=== PATIENT | female | born 1965 | race Caucasian/White ===

== ENCOUNTER 2023-03-08 09:49 | Inpatient (IN) ==
[2023-03-08] MEDS ORDERED: SODIUM CHLORIDE 0.9% 1,000 ML IV SCH (10:00)
--- NOTE | 2023-03-08 10:13 | Emergency Department Note ---
Impression & Plan Weakness, Hypotension, Anemia, Hypomagnesemia, Hypokalemia, Acute dehydration, COVID-19 ED Provider Note NAME: XENA ALLAN AGE: 57 SEX: F : 1965 ARRIVES VIA: Walk-In INFORMANT: [Patient] ED PROVIDER(S): [Tony Reeder MD] CHIEF COMPLAINT: Weakness, dizziness HISTORY OF PRESENT ILLNESS: The patient is a 57-year-old female who is receiving chemo and radiation therapy. She last had chemo 2 weeks ago. She is scheduled every 3 weeks. She had radiation today, she receives this Monday through Monday. At the radiation center, she complained of some dizziness and her blood pressure was 80/52. She was sent to the ER for evaluation, there is concern that she may be dehydrated. The patient has noticed some lightheadedness for the last week or so. Things seem to be worsening some. She has had some night sweats and a slightly productive cough. No fever, no vomiting but she has felt nauseated. No urinary complaints, no diarrhea. PMHx/PSHx/Social Hx: See Below PHYSICAL EXAM: GENERAL: Patient is in no acute distress. HEENT: No acute trauma, normocephalic atraumatic, mucous membranes moist, no nasal congestion. No throat erythema or exudate. NECK: No stridor, no adenopathy, no meningismus, trachea is midline. LUNGS: Clear to auscultation bilaterally, no wheeze, no rhonchi, breath sounds equal. HEART: Mildly tachycardic, regular rhythm, no murmurs. ABDOMEN: Soft, nontender, no peritonitis. EXTREMITIES: No cyanosis, full range of motion of all the joints without pain or difficulty. NEUROLOGIC: Oriented x 3, no acute motor or sensory deficits, no focal weakness. SKIN: No jaundice, no diaphoresis. Rectal: Brown stool, heme-negative. DIFFERENTIAL DIAGNOSIS: Dehydration, anemia, electrolyte imbalance, dysrhythmia, PR, UTI, viral illness, medication reaction, among others. EMERGENCY DEPARTMENT PROCEDURES: MEDICAL DECISION MAKING: The patient has a pancytopenia. This is likely from her chemotherapy. Of note, hemoglobin was quite low at 6. I did perform a rectal exam, stool was brown and heme negative. The patient's potassium and magnesium were both low. Creatinine was elevated consistent with some acute kidney injury/dehydration. ECG showed a sinus tachycardia, no obvious ischemia. Cardiac enzyme testing x 1 is slightly elevated. This troponin elevation could be secondary to cardiac injury or potentially just mismatch from her tachycardia and anemia. The patient appeared to be in a euthyroid state. No concerning liver enzyme elevation. Urinalysis did not show findings of infection. COVID test returned positive. Influenza and RSV test were negative. Chest x-ray does not show pneumonia or CHF. On exam, the patient was tachycardic but not in any distress. The patient received 1 L of IV saline. She was given IV magnesium, 2 g. She received oral potassium. The patient was ordered for 1 unit of packed red blood cells to be transfused. She did sign consent for the transfusion. I did speak with the patient about her findings, she understands that she will require hospitalization. She will need hydration, electrolyte replacement, packed red blood cell transfusions. I do think the findings on her workup explain her fatigue, weakness, hypotension and tachycardia. Prior/Outside records/notes reviewed: Radiation oncology note from 01/06/23 discussing her malignancy and the plan moving forward. ECG per my interpretation: Indication was weakness and dizziness. The ECG shows a sinus tachycardia with a rate of 107. There is some LVH present. There is no ST elevation, no PVCs. The QTc is 469. Continuous Cardiac Monitoring per my interpretation: An order was placed for continuous cardiac monitoring. The monitor shows a rate of 122 with sinus tachycardia. Imaging/x-ray results per my interpretation: Chest x-ray does not show mediastinal widening, pneumonia or pneumothorax. Chronic Medical/Social conditions affecting care: Small cell lung cancer. Currently undergoing chemo and radiation therapy Care/Management discussed with: Case management, the on-call hospitalist. Level of care consideration(s): After review of the information above and other included data: --I believe the patient requires escalation of care to admission Critical Care Note: I have personally spent 56 minutes of critical care time in the direct management of this patient. This includes bedside care, interpretation of diagnostic studies, and testing, discussion with consultants, patient, and family members, and other required patient management activities. This 56 minutes is in excess of all separately billable procedures. DISPOSITION: Admission Past Med/Surg History Medical History Diabetes Hyperlipidemia Hypertension Surgical History (Updated 01/03/23 @ 08:30 by Selam Rivera RN) History of cholecystectomy History of bronchoscopy (12/21/22) Family History (Updated 01/03/23 @ 08:31 by Selam Rivera RN) Father No problems noted. Mother , Passed age 27 Cancer unsure Brother No problems noted. Daughter No problems noted. Social History Smoking Status: Former smoker Tobacco Type: Cigarettes Age Started Using Tobacco: 13; Age Quit Using Tobacco: 57; packs per day: 1; Second Hand Exposure: Yes; Do You Dip or Chew Tobacco: No; Hx Alcohol Use: No Hx Substance Use: No Preferred Language: Azerbaijani Communication Ability: Effective Visual Impairment: Limited Hearing Ability: Normal Forming Operator Required: No Beliefs That Will Affect Care: None marital status: Current Living Situation: Spouse How many Children do You have: 1 Feels Safe at Home: Yes Childhood Exposure to Second-Hand Smoke: Yes Diet: regular caffeine: Yes during the past year weight has: remained stable Dental Care, Regularly: Yes Assistive Devices: Glasses Allergies Allergies Allergy/AdvReac Type Severity Reaction Status Date / Time cromolyn Allergy Severe facial Verified 03/08/23 12:29 edema latex Allergy Unknown . Verified 03/06/23 08:53 Home Meds Home Medications Medication Instructions Recorded Confirmed albuterol sulfate 90 mcg/actuation 2 puff inhalation Q4H PRN 01/03/23 03/08/23 aerosol inhaler (Proventil HFA) sob/wheezing aspirin-caffeine 400 mg-32 mg 1 tab PO Q6H PRN Other 01/03/23 03/08/23 tablet (Anacin) benzonatate 100 mg capsule 100 mg PO TID PRN Cough 01/03/23 03/08/23 citalopram 20 mg tablet (Celexa) 20 mg PO DAILY 01/03/23 03/08/23 conjugated estrogens 0.625 mg/gram 0.625 mg vaginal DAILY 01/03/23 03/08/23 vaginal cream (Premarin) fluticasone propionate 50 2 spray intranasal DAILY PRN Other 01/03/23 03/08/23 mcg/actuation nasal spray,suspension glyburide 5 mg-metformin 500 mg 1 tab PO DAILY 01/03/23 03/08/23 tablet hydrochlorothiazide 25 mg tablet 25 mg PO DAILY 01/03/23 03/08/23 lisinopril 40 mg tablet 40 mg PO DAILY 01/03/23 03/08/23 ondansetron HCl 8 mg tablet 8 mg PO Q8H PRN n/v 01/03/23 03/08/23 prochlorperazine maleate 10 mg 10 mg PO Q6H PRN n/v 01/03/23 03/08/23 tablet Ibuprofen (Motrin) 600 mg PO Q6HR PRN Pain #0 tabs 02/05/23 03/08/23 omeprazole 20 mg capsule,delayed 20 mg PO QAM 03/08/23 03/08/23 release Previous Rx's Medication Instructions Recorded Magic Mouthwash 300 mL mouthwash 10 ml mucous membrane ACHS PRN 03/06/23 dysphagia #300 mL Results & Data (ED) Vital Signs Vital Signs - 24 hr 03/08/23 09:51 03/08/23 10:31 03/08/23 10:33 Temperature 36.0 C L Temperature Source Temporal Artery Scan Pulse Rate 123 H Pulse Rate from SpO2 Sensor Pulse Rhythm Regular Pulse Strength Normal Respiratory Rate 20 Respiratory Effort / Characteristics Non-Labored Spontaneous Respiratory Depth Normal Respiratory Pattern Regular Blood Pressure 102/56 L Blood Pressure Mean 71 Blood Pressure Position Sitting Pulse Oximetry 100 Oxygen Delivery Method Room Air Room Air Room Air Oxygen Flow Rate Sepsis Recent Fever Within 48 Hours No Sepsis New/Unexplained Change in Mental Status No Sepsis Action Taken by Nursing No Action Required 03/08/23 11:00 03/08/23 11:02 03/08/23 11:30 Temperature Temperature Source Pulse Rate 107 H 109 H 110 H Pulse Rate from SpO2 Sensor 108 H 107 H Pulse Rhythm Pulse Strength Respiratory Rate 25 H 22 Respiratory Effort / Characteristics Respiratory Depth Respiratory Pattern Blood Pressure 95/78 L 108/64 Blood Pressure Mean 83 78 Blood Pressure Position Pulse Oximetry 97 99 Oxygen Delivery Method Oxygen Flow Rate Sepsis Recent Fever Within 48 Hours Sepsis New/Unexplained Change in Mental Status Sepsis Action Taken by Nursing 03/08/23 12:00 03/08/23 12:30 03/08/23 13:00 Temperature Temperature Source Pulse Rate 101 H 104 H 99 H Pulse Rate from SpO2 Sensor 101 H 104 H 99 H Pulse Rhythm Pulse Strength Respiratory Rate 15 22 24 Respiratory Effort / Characteristics Respiratory Depth Respiratory Pattern Blood Pressure 115/76 91/70 L 121/78 Blood Pressure Mean 89 77 92 Blood Pressure Position Pulse Oximetry 98 98 93 Oxygen Delivery Method Room Air Room Air Oxygen Flow Rate Sepsis Recent Fever Within 48 Hours Sepsis New/Unexplained Change in Mental Status Sepsis Action Taken by Nursing 03/08/23 14:40 03/08/23 15:00 03/08/23 15:00 Temperature 36.9 C 36.7 C Temperature Source Oral Oral Pulse Rate 109 H 108 H Pulse Rate from SpO2 Sensor Pulse Rhythm Regular Pulse Strength Respiratory Rate 16 23 24 Respiratory Effort / Characteristics Respiratory Depth Respiratory Pattern Blood Pressure 130/69 115/72 115/72 Blood Pressure Mean 89 86 86 Blood Pressure Position Pulse Oximetry 96 95 95 Oxygen Delivery Method Oxygen Flow Rate Sepsis Recent Fever Within 48 Hours Sepsis New/Unexplained Change in Mental Status Sepsis Action Taken by Nursing 03/08/23 15:02 03/08/23 15:15 Temperature 37.2 C Temperature Source Oral Pulse Rate 107 H 106 H Pulse Rate from SpO2 Sensor Pulse Rhythm Pulse Strength Respiratory Rate 24 Respiratory Effort / Characteristics Respiratory Depth Respiratory Pattern Blood Pressure 126/74 Blood Pressure Mean 91 Blood Pressure Position Pulse Oximetry 94 Oxygen Delivery Method Oxygen Flow Rate 0 Sepsis Recent Fever Within 48 Hours Sepsis New/Unexplained Change in Mental Status Sepsis Action Taken by Care Home Medications Current Medication List: was personally reviewed by me Laboratory Data Attestation: I reviewed the patient's lab results. 03/08/23 10:21 03/08/23 10:21 Lab Results 03/08/23 03/08/23 03/08/23 Range/Units 10:18 10:21 10:29 WBC 1.23 L (4.8-10.8) K/ul RBC 2.03 L (4.20-5.40) M/uL Hgb 6.0 L* (12.0-16.0) g/dl Hct 16.6 L* (37.0-47.0) % MCV 81.8 (80.0-100.0) fL MCH 29.6 (25.0-34.0) pg MCHC 36.1 H (32.0-36.0) g/dL RDW Std Deviation 41.1 (36.4-46.3) fL RDW Coeff of Luiz 13.9 (11.5-14.5) % Plt Count 50 L (130-400) K/uL Immature Gran % (Auto) 1.6 % Neut % (Auto) 50.5 % Lymph % (Auto) 34.1 % [place] % (Auto) 13.0 % Eos % (Auto) 0.8 % Baso % (Auto) 0.0 % Neut # (Auto) 0.62 L* (1.40-6.50) K/uL Lymph # (Auto) 0.42 L (1.20-3.40) K/uL [place] # (Auto) 0.16 (0.11-0.59) K/uL Eos # (Auto) 0.01 (0.00-0.50) K/uL Baso # (Auto) 0.00 (0.00-0.20) K/uL Immature Gran # (Auto) 0.02 (0.01-0.20) K/uL Platelet Estimate Decreased L (Normal) Polychromasia 1+ Sodium 135 L (136-145) mmol/L Potassium 2.9 L (3.5-5.1) mmol/L Chloride 95 L (98-107) mmol/L Carbon Dioxide 31 (21-32) mmol/L Anion Gap 9 (3-11) BUN 22 (6-23) mg/dl Creatinine 1.59 H (0.6-1.2) mg/dl Est Cr Clr Drug Dosing 35.7 ml/min Est GFR ( Amer) 40.8 ml/min Est GFR (Non-Af Amer) 35.2 ml/min BUN/Creatinine Ratio 13.8 (10-20) Glucose 280 H (70-99(Fasting)) mg/dl POC Glucose (70-99) mg/dl Lactate (0.4-2.0) mmol/L Calcium 9.2 (8.6-10.3) mg/dl Magnesium 1.4 L (1.7-2.4) mg/dl Total Bilirubin 0.5 (0.2-1.0) mg/dl AST 10 L (13-39) U/L ALT 9 (7-52) U/L Alkaline Phosphatase 74 (34-104) U/L Troponin I High Sens 33.7 H (0-14) pg/ml Total Protein 6.9 (6.0-8.3) gm/dl Albumin 3.8 (3.4-5.0) gm/dl Globulin 3.1 (2.5-4.0) gm/dl Albumin/Globulin Ratio 1.2 (0.9-2) TSH 1.102 (0.300-4.500) uIu/ml Urine Color Yellow Urine Appearance Cloudy A (Clear) Urine pH 5.5 (4.5-7.5) Ur Specific [place] 1.020 (1.000-1.030) Urine Protein Trace H (Negative) Urine Glucose (UA) 3+ H (Negative) Urine Ketones Negative (Negative) Urine Blood Negative (Negative) Urine Nitrite Negative (Negative) Urine Bilirubin Negative (Negative) Urine Urobilinogen Negative (Negative) Ur Leukocyte Esterase Negative (Negative) Urine WBC (Auto) 1-5 (0-5) /hpf Urine RBC (Auto) 0-4 (0-4) /hpf U Hyaline Cast (Auto) 5-10 H (0-5) /lpf U Epithel Cells (Auto) >30 H (0-5) /lpf Urine Bacteria (Auto) 1+ H (Negative) SARS-CoV-2 (PCR) POSITIVE A* (Negative) Influenza Type A (PCR) Negative (Neg) Influenza Type B (PCR) Negative (Neg) RSV (RT-PCR) Negative (Neg) Blood Type Blood Type Recheck Antibody Screen Crossmatch 03/08/23 03/08/23 03/08/23 Range/Units 10:50 11:16 12:08 WBC (4.8-10.8) K/ul RBC (4.20-5.40) M/uL Hgb (12.0-16.0) g/dl Hct (37.0-47.0) % MCV (80.0-100.0) fL MCH (25.0-34.0) pg MCHC (32.0-36.0) g/dL RDW Std Deviation (36.4-46.3) fL RDW Coeff of Luiz (11.5-14.5) % Plt Count (130-400) K/uL Immature Gran % (Auto) % Neut % (Auto) % Lymph % (Auto) % [place] % (Auto) % Eos % (Auto) % Baso % (Auto) % Neut # (Auto) (1.40-6.50) K/uL Lymph # (Auto) (1.20-3.40) K/uL [place] # (Auto) (0.11-0.59) K/uL Eos # (Auto) (0.00-0.50) K/uL Baso # (Auto) (0.00-0.20) K/uL Immature Gran # (Auto) (0.01-0.20) K/uL Platelet Estimate (Normal) Polychromasia Sodium (136-145) mmol/L Potassium (3.5-5.1) mmol/L Chloride (98-107) mmol/L Carbon Dioxide (21-32) mmol/L Anion Gap (3-11) BUN (6-23) mg/dl Creatinine (0.6-1.2) mg/dl Est Cr Clr Drug Dosing ml/min Est GFR ( Amer) ml/min Est GFR (Non-Af Amer) ml/min BUN/Creatinine Ratio (10-20) Glucose (70-99(Fasting)) mg/dl POC Glucose (70-99) mg/dl Lactate 2.3 H* (0.4-2.0) mmol/L Calcium (8.6-10.3) mg/dl Magnesium (1.7-2.4) mg/dl Total Bilirubin (0.2-1.0) mg/dl AST (13-39) U/L ALT (7-52) U/L Alkaline Phosphatase (34-104) U/L Troponin I High Sens (0-14) pg/ml Total Protein (6.0-8.3) gm/dl Albumin (3.4-5.0) gm/dl Globulin (2.5-4.0) gm/dl Albumin/Globulin Ratio (0.9-2) TSH (0.300-4.500) uIu/ml Urine Color Urine Appearance (Clear) Urine pH (4.5-7.5) Ur Specific [place] (1.000-1.030) Urine Protein (Negative) Urine Glucose (UA) (Negative) Urine Ketones (Negative) Urine Blood (Negative) Urine Nitrite (Negative) Urine Bilirubin (Negative) Urine Urobilinogen (Negative) Ur Leukocyte Esterase (Negative) Urine WBC (Auto) (0-5) /hpf Urine RBC (Auto) (0-4) /hpf U Hyaline Cast (Auto) (0-5) /lpf U Epithel Cells (Auto) (0-5) /lpf Urine Bacteria (Auto) (Negative) SARS-CoV-2 (PCR) (Negative) Influenza Type A (PCR) (Neg) Influenza Type B (PCR) (Neg) RSV (RT-PCR) (Neg) Blood Type A Positive Blood Type Recheck A Positive Antibody Screen NEGATIVE Crossmatch See Detail 03/08/23 03/08/23 03/08/23 Range/Units 12:11 12:40 13:42 WBC (4.8-10.8) K/ul RBC (4.20-5.40) M/uL Hgb (12.0-16.0) g/dl Hct (37.0-47.0) % MCV (80.0-100.0) fL MCH (25.0-34.0) pg MCHC (32.0-36.0) g/dL RDW Std Deviation (36.4-46.3) fL RDW Coeff of Luiz (11.5-14.5) % Plt Count (130-400) K/uL Immature Gran % (Auto) % Neut % (Auto) % Lymph % (Auto) % [place] % (Auto) % Eos % (Auto) % Baso % (Auto) % Neut # (Auto) (1.40-6.50) K/uL Lymph # (Auto) (1.20-3.40) K/uL [place] # (Auto) (0.11-0.59) K/uL Eos # (Auto) (0.00-0.50) K/uL Baso # (Auto) (0.00-0.20) K/uL Immature Gran # (Auto) (0.01-0.20) K/uL Platelet Estimate (Normal) Polychromasia Sodium (136-145) mmol/L Potassium (3.5-5.1) mmol/L Chloride (98-107) mmol/L Carbon Dioxide (21-32) mmol/L Anion Gap (3-11) BUN (6-23) mg/dl Creatinine (0.6-1.2) mg/dl Est Cr Clr Drug Dosing ml/min Est GFR ( Amer) ml/min Est GFR (Non-Af Amer) ml/min BUN/Creatinine Ratio (10-20) Glucose (70-99(Fasting)) mg/dl POC Glucose 193 H (70-99) mg/dl Lactate 1.5 (0.4-2.0) mmol/L Calcium (8.6-10.3) mg/dl Magnesium (1.7-2.4) mg/dl Total Bilirubin (0.2-1.0) mg/dl AST (13-39) U/L ALT (7-52) U/L Alkaline Phosphatase (34-104) U/L Troponin I High Sens 31.5 H (0-14) pg/ml Total Protein (6.0-8.3) gm/dl Albumin (3.4-5.0) gm/dl Globulin (2.5-4.0) gm/dl Albumin/Globulin Ratio (0.9-2) TSH (0.300-4.500) uIu/ml Urine Color Urine Appearance (Clear) Urine pH (4.5-7.5) Ur Specific [place] (1.000-1.030) Urine Protein (Negative) Urine Glucose (UA) (Negative) Urine Ketones (Negative) Urine Blood (Negative) Urine Nitrite (Negative) Urine Bilirubin (Negative) Urine Urobilinogen (Negative) Ur Leukocyte Esterase (Negative) Urine WBC (Auto) (0-5) /hpf Urine RBC (Auto) (0-4) /hpf U Hyaline Cast (Auto) (0-5) /lpf U Epithel Cells (Auto) (0-5) /lpf Urine Bacteria (Auto) (Negative) SARS-CoV-2 (PCR) (Negative) Influenza Type A (PCR) (Neg) Influenza Type B (PCR) (Neg) RSV (RT-PCR) (Neg) Blood Type Blood Type Recheck Antibody Screen Crossmatch Administered Medications Discontinued Medications Sodium Chloride (Nss) 1,000 mls @ 999 mls/hr IV .Q1H1M ROBBY Stop: 03/08/23 11:00 Last Infusion: 03/08/23 11:41 Dose: Infused Documented By: Admin: 03/08/23 10:40 Dose: 999 mls/hr Documented By: XOCHITL Magnesium Sulfate/Dextrose (Magnesium Sulfate / D5w) 1 gm in 100 mls @ 100 mls/hr IV Q1H ROBBY Stop: 03/08/23 13:06 Last Infusion: 03/08/23 13:24 Dose: Infused Documented By: Admin: 03/08/23 12:24 Dose: 100 mls/hr Documented By: Infusion: 03/08/23 12:23 Dose: Infused Documented By: Admin: 03/08/23 11:23 Dose: 100 mls/hr Documented By: XOCHITL Sodium Chloride (Nss) 1,000 mls @ 999 mls/hr IV .Q1H1M ONE Stop: 03/08/23 12:07 Last Admin: 03/08/23 11:25 Dose: Not Given Documented By: XOCHITL Potassium Chloride (Potassium Chloride Crtab 20 Meq Tabcr) 40 meq PO NOW STA Stop: 03/08/23 11:07 Last Admin: 03/08/23 11:23 Dose: 40 meq Documented By: XOCHITL Imaging Data Radiologist's Impression: Chest X-Ray 03/08/23 09:59 XR chest 1V portable HISTORY: weakness COMPARISON: Chest 12/21/2022. PET CT 12/20/2022. FINDINGS: No pneumothorax. No pleural effusions. The heart is normal in size. No acute fractures identified. The lungs are clear. No evidence for pulmonary edema. Mediastinal fullness has significantly improved in the interval. IMPRESSION: 1. No acute process within the chest. 2. Mediastinal fullness has significantly improved in the interval likely representing decrease in size in the patient's known mediastinal mass/lymphadenopathy. ACT 112: Negative or not required by law. Electronically signed by: Joel Stein M.D. 03/08/2023 10:52 AM Discharge Plan Visit Data Chief Complaint: Dizziness Stated Complaint: LIGHTHEADED,BP GETTING LOW ED Provider: Tony Reeder Discharge Problem: Weakness, Hypotension, Anemia, Hypomagnesemia, Hypokalemia, Acute dehydration, COVID-19 Patient Disposition: Admitted As Inpatient Condition: Fair Forms Stand Alone Forms: [facility], [facility] Prescriptions Prescriptions: No Action fluticasone propionate 50 mcg/actuation spray,suspension 2 spray intranasal DAILY PRN (Reason: Other) Rx Instructions: administer into each nostril Premarin 0.625 mg/gram cream 0.625 mg vaginal DAILY Rx Instructions: off 5 days; repeat cycle albuterol sulfate [Proventil HFA] 90 mcg/actuation HFA aerosol inhaler 2 puff inhalation Q4H PRN (Reason: sob/wheezing) benzonatate 100 mg capsule 100 mg PO TID PRN (Reason: Cough) glyburide-metformin 5-500 mg tablet 1 tab PO DAILY hydrochlorothiazide 25 mg tablet 25 mg PO DAILY lisinopril 40 mg tablet 40 mg PO DAILY Anacin 400-32 mg tablet 1 tab PO Q6H PRN (Reason: Other) citalopram [Celexa] 20 mg tablet 20 mg PO DAILY ondansetron HCl 8 mg tablet 8 mg PO Q8H PRN (Reason: n/v) prochlorperazine maleate 10 mg tablet 10 mg PO Q6H PRN (Reason: n/v) Ibuprofen (Motrin) 600 MG tablet 600 mg PO Q6HR PRN (Reason: Pain) Qty: 0 Patient Comments: PRN PAIN Magic Mouthwash 300 mL mouthwash 10 ml mucous membrane ACHS PRN (Reason: dysphagia) Qty: 300 5RF omeprazole 20 mg capsule,delayed release(DR/EC) 20 mg PO QAM Referrals Referrals: Adan Rangel MD [Primary Care Provider] - Discharge Problem: Hypotension Qualifiers: Hypotension type: unspecified hypotension type Qualified Code(s): I95.9 - Hypotension, unspecified Anemia Qualifiers: Anemia type: unspecified type Qualified Code(s): D64.9 - Anemia, unspecified
[2023-03-08 10:40] LABS: Appearance Urine Cloudy (Clear); Bacteria Urine Automated 1+ (Negative); Bilirubin Urine Negative (Negative); Blood Urine Negative (Negative); Color Urine Yellow; Epithelial Cell Urine Auto >30 /lpf (0-5); Glucose Urine UA 3+ (Negative); Ketones Urine Negative (Negative); Leukocyte Esterase Urine Negative (Negative); Nitrite Urine Negative (Negative); Protein Urine Trace (Negative); RBC Urine Automated 0-4 /hpf (0-4); Urobilinogen Urine Negative (Negative); pH Urine 5.5 (4.5-7.5)
--- NOTE | 2023-03-08 10:54 | XRay Report ---
XR chest 1V portable HISTORY: weakness COMPARISON: Chest 12/21/2022. PET CT 12/20/2022. FINDINGS: No pneumothorax. No pleural effusions. The heart is normal in size. No acute fractures iden tified. The lungs are clear. No evidence for pulmonary edema. Mediastinal fullness has significantly improved in the interval. IMPRESSION: 1. No acute process within the chest. 2. Mediastinal fullness has significantly improved in the interval likely representing decrease in si ze in the patient's known mediastinal mass/lymphadenopathy. ACT 112: Negative or not required by law. Electronically signed by: Joel Stein M.D. 03/08/2023 10:52 AM
[2023-03-08 11:01] LABS: Albumin Globulin Ratio 1.2 (0.9-2); Albumin Level 3.8 gm/dl (3.4-5.0); BUN Creatinine Ratio 13.8 (10-20); Bilirubin,Total 0.5 mg/dl (0.2-1.0); Calcium 9.2 mg/dl (8.6-10.3); Creatinine Clr Calc Pharmacy 35.7 ml/min; Est GFR (African American) 40.8 ml/min; Est GFR (Non-African American) 35.2 ml/min; Globulin 3.1 gm/dl (2.5-4.0); Magnesium 1.4 mg/dl (1.7-2.4); Potassium 2.9 mmol/L (3.5-5.1); Total Protein 6.9 gm/dl (6.0-8.3)
[2023-03-08 11:06] LABS: Troponin I High Sensitivity 33.7 pg/ml (0-14)
[2023-03-08] MEDS ORDERED: POTASSIUM CHLORIDE CRTAB 20 MEQ TABCR PO STA (11:06)
[2023-03-08] MEDS ORDERED: SODIUM CHLORIDE 0.9% 1,000 ML IV ONE (11:07)
[2023-03-08] MEDS ORDERED: SODIUM CHLORIDE 0.9% 250 ML IV PRN ×4 (11:12→20:49)
[2023-03-08 11:16] LABS: Thyroid Stimulating Hormone 1.102 uIu/ml (0.300-4.500)
[2023-03-08 11:17] LABS: Hematocrit (blood only) 16.6 % (37.0-47.0); Mean Corpuscular Hemoglobin 29.6 pg (25.0-34.0); Mean Corpuscular Hgb Conc 36.1 g/dL (32.0-36.0); Mean Corpuscular Volume 81.8 fL (80.0-100.0); Platelet Count 50 K/uL (130-400); Platelet Estimate Decreased (Normal); Polychromasia 1+; RDW Coefficient of Variation 13.9 % (11.5-14.5); RDW Standard Deviation 41.1 fL (36.4-46.3); Red Blood Count 2.03 M/uL (4.20-5.40); White Blood Count 1.23 K/ul (4.8-10.8)
[2023-03-08 11:22] LABS: Influenza A virus by PCR Negative (Neg); Influenza B virus by PCR Negative (Neg); RSV by PCR Negative (Neg)
[2023-03-08] MEDS: MAGNESIUM SULFATE / D5W 1 GM/100 ML BAG IV SCH ×2 (11:23→12:24)
[2023-03-08 11:26] LABS: Eosinophils # (auto) 0.01 K/uL (0.00-0.50); Eosinophils % (auto) 0.8 %; Immature Granulocytes # (auto) 0.02 K/uL (0.01-0.20); Immature Granulocytes % (auto) 1.6 %; Lymphocytes # (auto) 0.42 K/uL (1.20-3.40); Lymphocytes % (auto) 34.1 %; Monocytes # (auto) 0.16 K/uL (0.11-0.59); Neutrophils # (auto) 0.62 K/uL (1.40-6.50); Neutrophils % (auto) 50.5 %
[2023-03-08 11:39] LABS: SARS CoV2 RNA(COVID-19) Ceph POSITIVE (Negative)
--- NOTE | 2023-03-08 12:39 | History & Physical Report ---
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 chills several days ago Outpatient BP today 80/52. Was 102/56 upon ER arrival with HR:123. EKG sinus tachycardia, rate 107 WBC: 1.2, Hgb: 6.0 (11 on 02/20/2023), PLT: 50 (246 on 02/20/2023), Neut#0.6 UA: suspect contaminant + SARS Cov 2 PCR Lactate: 2.3--> 1.5 Blood cultures pending Negative Hemoccult in ER In ER 1 unit PRBC started Patient reassessed after 1L NSS in ER and is hemodynamically stable,HR: 99, BP 121/78, 94% on room air Will give additional unit PRBC Initially in ER pt afebrile. repeat T: 37.6C. Will add cefepime and closely monitor for further fevers Neutropenic precautions CBC, BMP in a.m. Discussed with Dr. Harris who recommended PRBC transfusion and last day chemo 02/22/2023 and patient should be in recovery phase (3) COVID-19: Plan: + SARS-CoV-2 PCR Nasal congestion, cough x 1 week CXR: No acute infiltrate Not hypoxic on room air Isolation precautions Incentive spirometer Flonase (4) Hypokalemia: Plan: K: 2.9 In ER given 40 mEq KCl Continue to replace and monitor with repeat BMP tonight (5) Hypomagnesemia: Plan: Magnesium: 1.4 In ER given 2 g magnesium sulfate Magnesium lab in AM (6) [place] (acute kidney injury): Plan: BUN: 22, Cr: 1.59. Creatinine was 1.3 on 02/20/2023, 1.0 on 01/23/2023 Gentle IVF (7) Elevated troponin: Plan: HS troponin: 33.7--> 31.5 EKG: Sinus tachycardia, rate 107, no ST elevation noted per my interpretation Likely demand ischemia from anemia Trend troponin If troponins uptrending consider echo, cardiology consult (8) Small cell lung cancer: Plan: On chemo, radiation Last chemo 02/22/2023 Last radiation 03/08/2023 Follows with medical oncology, Dr. Harris Follows with radiation oncology, Dr Bud Goldman (9) Hypertension: Plan: Hold lisinopril, HCTZ for now as patient was initially hypertensive (10) Diabetes mellitus, type II: Plan: A1c: 6.2 in 11/2021 Hold home metformin, glyburide Random glucose 280 NovoLog sliding scale per protocol (11) Hyperlipidemia: Plan: Previously was on atorvastatin, patient reports is not taking DVT Prophylaxis SCDs Full Code as per discussion with pt Follows with Dr Rangel for routine care Pt was seen and care coordinated with Dr Adames. 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 History obtained from patient and outpatient chart review. States mid January 2023 had some nasal congestion, productive cough. States was treated with Levaquin 02/13/23 and finished with improvement of symptoms. Reports for past week with some nasal congestion and mostly dry cough, but "didn't think much of it". Denies SOB, CP. She reports chills 5 days ago that lasted 2 days and resolved. Did not take temperature at that time. States when checked her temperature it has been normal. Past week has been having dizziness with standing that has progressively worsened over the past 2-3 days. Denies syncope. Today at radiation oncology and noted to have SBP in 80s and was referred to ER. Doesn't have known COVID-19 contacts. Last chemo 02/22/23. Last radiation 03/08/23. Reports not eating that much as things haven't tasted good to her for weeks. Was having some nausea after chemo but denies any over past several days. States has been trying to drink fluids. Denies melena, hematochezia, diaphoresis, V/D/C, ROMERO, vision changes, neck pain, CP, SOB, orthopnea, palpitations, hemoptysis, sore throat, otalgia, abdominal pain, extremity weakness, extremity edema, rashes, urinary symptoms. Allergies Allergy/AdvReac Type Severity Reaction Status Date / Time cromolyn Allergy Severe facial Verified 12/20/23 12:29 edema latex Allergy Unknown . Verified 03/06/23 08:53 Home Medications Medication Instructions Recorded Confirmed Type albuterol sulfate 90 mcg/actuation 2 puff inhalation Q4H PRN 01/03/23 03/08/23 History aerosol inhaler (Proventil HFA) sob/wheezing aspirin-caffeine 400 mg-32 mg 1 tab PO Q6H PRN Other 01/03/23 03/08/23 History tablet (Anacin) benzonatate 100 mg capsule 100 mg PO TID PRN Cough 01/03/23 03/08/23 History citalopram 20 mg tablet (Celexa) 20 mg PO DAILY 01/03/23 03/08/23 History conjugated estrogens 0.625 mg/gram 0.625 mg vaginal DAILY 01/03/23 03/08/23 History vaginal cream (Premarin) fluticasone propionate 50 2 spray intranasal DAILY PRN Other 01/03/23 03/08/23 History mcg/actuation nasal spray,suspension glyburide 5 mg-metformin 500 mg 1 tab PO DAILY 01/03/23 03/08/23 History tablet hydrochlorothiazide 25 mg tablet 25 mg PO DAILY 01/03/23 03/08/23 History lisinopril 40 mg tablet 40 mg PO DAILY 01/03/23 03/08/23 History ondansetron HCl 8 mg tablet 8 mg PO Q8H PRN n/v 01/03/23 03/08/23 History prochlorperazine maleate 10 mg 10 mg PO Q6H PRN n/v 01/03/23 03/08/23 History tablet Ibuprofen (Motrin) 600 mg PO Q6HR PRN Pain #0 tabs 02/05/23 03/08/23 History Magic Mouthwash 300 mL mouthwash 10 ml mucous membrane ACHS PRN 03/06/23 03/08/23 Rx dysphagia #300 mL omeprazole 20 mg capsule,delayed 20 mg PO QAM 03/08/23 03/08/23 History release Past Med/Surg History Medical History (Updated 03/08/23 @ 20:29 by Amalia Bobby PA-C) Diabetes mellitus, type II Diabetes Hyperlipidemia Hypertension Surgical History History of cholecystectomy History of bronchoscopy (12/21/22) Family History Father No problems noted. Mother , Passed age 27 Cancer unsure Brother No problems noted. Daughter No problems noted. Social History Smoking Status: Former smoker Tobacco Type: Cigarettes Age Started Using Tobacco: 13; Age Quit Using Tobacco: 57; packs per day: 1; Second Hand Exposure: Yes; Do You Dip or Chew Tobacco: No; Hx Alcohol Use: No Hx Substance Use: No Preferred Language: Setswana Communication Ability: Effective Visual Impairment: Limited Hearing Ability: Normal Healthcare Applications Analyst Required: No Beliefs That Will Affect Care: None marital status: Current Living Situation: Spouse How many Children do You have: 1 Other Information That Helps Us Care for You: No Feels Safe at Home: Yes and No Is there a partner from a previous relationship who is making you feel unsafe now?: No Any Concerns about Your Family Situation: No Would You Like to Speak to Someone About Your Situation: No Safety Concerns: Feels Safe At This Time Childhood Exposure to Second-Hand Smoke: Yes Diet: regular caffeine: Yes during the past year weight has: remained stable Dental Care, Regularly: Yes Assistive Devices: Glasses Review of Systems Review of Systems: All systems reviewed & are unremarkable except as noted in HPI & below Physical Exam 2 Physical Exam: General: no distress, chronic ill appearing, WDWN Head: normocephalic, atraumatic Eyes: conjunctiva pale, anicteric ENT: normal inspection external ears, nose, mucous membranes mildly dry Neck: supple, trachea midline, non-tender Lungs: clear, no respiratory distress, no wheezing/rhonchi/rales CV: RRR, no murmur, no JVD, no pretibial edema Abd: normal BS, soft, non-tender Ext: no cyanosis, no calf tenderness Neuro: A&O x 3, no focal deficits noted, normal affect Skin: pale coloration, warm, dry Results & Data Results & Data Vital Signs (Past 12 Hours) Vital Signs Temp Pulse Resp BP Pulse Ox O2 Del Method 03/08/23 11:02 109 H 03/08/23 10:33 Room Air 03/08/23 10:31 Room Air 03/08/23 09:51 36.0 C L 123 H 20 102/56 L 100 Room Air Laboratory Results Short CBC 03/08/23 Range/Units 10:21 WBC 1.23 L (4.8-10.8) K/ul Hgb 6.0 L* (12.0-16.0) g/dl Hct 16.6 L* (37.0-47.0) % Plt Count 50 L (130-400) K/uL BMP 03/08/23 03/08/23 10:21 18:13 Sodium 135 L 137 Potassium 2.9 L 3.4 L Chloride 95 L 102 Carbon Dioxide 31 29 BUN 22 22 Creatinine 1.59 H 1.61 H Glucose 280 H 153 H Calcium 9.2 8.6 Liver Function 03/08/23 Range/Units 10:21 Total Bilirubin 0.5 (0.2-1.0) mg/dl AST 10 L (13-39) U/L ALT 9 (7-52) U/L Alkaline Phosphatase 74 (34-104) U/L Albumin 3.8 (3.4-5.0) gm/dl Urine 03/08/23 Range/Units 10:18 Urine Color Yellow Urine Appearance Cloudy A (Clear) Urine pH 5.5 (4.5-7.5) Ur Specific [place] 1.020 (1.000-1.030) Urine Protein Trace H (Negative) Urine Glucose (UA) 3+ H (Negative) Diagnostic Findings Chest X-Ray 03/08/23 09:59 XR chest 1V portable HISTORY: weakness COMPARISON: Chest 12/21/2022. PET CT 12/20/2022. FINDINGS: No pneumothorax. No pleural effusions. The heart is normal in size. No acute fractures identified. The lungs are clear. No evidence for pulmonary edema. Mediastinal fullness has significantly improved in the interval. IMPRESSION: 1. No acute process within the chest. 2. Mediastinal fullness has significantly improved in the interval likely representing decrease in size in the patient's known mediastinal mass/lymphadenopathy. ACT 112: Negative or not required by law. Electronically signed by: Joel Stein M.D. 03/08/2023 10:52 AM Supervising Physician Co-Signing Physician Notes I have seen and discussed the case with the collaborating RAVEN. I agree with the above H&P. I have reviewed and confirmed the patients medical history, the findings on physical examination, and the patients diagnosis and treatment plan with Kanu CARBAJAL and agree with the information documented. In short, Ms. Wheatley is a 57 year old woman with history of small cell carcinoma of lung who is undergoing chemoradiation, last treatment on 02/22. She reports that she has been progressively weaker thus prompting her presentation. She was found to be COVID positive and pancytopenic. ED administered 1 U PRBC. Physical exam is notable for pleasant woman, alopecia 2/2 ongoing treatement, generalized pallor, CV RRR, Resp without crackles/wheezing, CTABL, abdomen soft. Plan to trend HH and transfuse Hgb <7.0. Consulted Dr. Harris, primary oncologist to discuss neupogen, appreciate recommendations for next steps given treatment over 2 weeks ago. Symptom treatment for COVID (no hypoxia and likely symptoms of fatigue--thought possibly related to pancyotpenia-->7days ago, so no remdesivir or dex). Rest of plan as above.
--- OUTSIDE RECORDS SUMMARY | 2023-03-08 13:27 | External Medical Summary | Summary of Care ---
Author Name Unknown Organization [facility] Address [address] [place] [address] Phone [phone] Care Team Providers Care Colorer Name Role Phone Adan Rangel MD Primary Care Provider [phone]- [phone] Reason for Visit * Reason Comments Chemotherapy C3D2 Etoposide & hyd ration * Episode Based Medications (Routine) - Authorized Specialty Diagnoses / Procedures Referred By Alvaro t Referred To Contact Diagnoses Small cell lung cancer (HCC) Encounter for antineoplastic chemotherapy Procedures ME FOSAPREPITANT INJECTION ME CISPLATIN 10 MG INJECTION ME ETOPOSIDE 10 MG INJ Hernan Harris MD [address] [place] [address] Hem/Onc Scenery [address] [place] [address] Referral ID Status Reason Start Date Expiration Date V isits Requested Visits Authorized [id number] Authorized 12/29/2022 12/30/2023 [id number] Encounter Details Date Type Department Care Team (Latest Contact Info) Description 02/21/2023 11:30 AM EST Hem/Onc Treatment Hematology/Oncolog y Treatment, [place] [address] [place] [address] Veronica, Chair 3 Hem Onc Scenery [address] [place] [address] Small cell lung cancer (HCC)*; Encounter for antineoplastic chemotherapy Allergies Active Allergy Reactions Criticality Noted Date Comments Cromolyn Edema face/lips/tongue High 11/21/2012 Facial numbness and swelling documented as of this encounter (statuses as of 02/23/2023) Medications Medication Sig Dispensed Refills Start Date End Date Status fluticasone (FLONASE) 50 MCG/ACT nasal sprayIndications:Al lergic rhinitis, unspecified seasonality, unspecified trigger Administer 2 Sprays into each nostril daily. 3 Bottle 1 01/29/2019 Active Atorvastatin Calcium 20 MG Oral Tablet (Lipitor)Indication s:Dyslipidemia, goal LDL below 130 TAKE 1 TABLET BY MOUTH EVERYDAY AT BEDTIME 90 Tab 1 04/17/2020 Active Premarin 0.625 MG/GM Vaginal Cream (Estrogens Conjugated)Indicati ons:Vaginal dryness Administer 1 g into the vagina at bedtime. As directed. 90 g 1 03/16/2022 Active Benzonatate 100 MG Oral CapsuleIndications: Chronic bronchitis with wheezing (HCC),Tobacco use disorder Take 1 Capsule by mouth 3 times a day as needed for Cough. 30 Capsule 1 12/01/2022 Active glyBURIDE-metFORMIN 5-500 MG Oral TabletIndications:P rediabetes TAKE 1 TABLET DAILY WITH BREAKFAST 90 Tablet 0 12/02/2022 Active Citalopram Hydrobromide 20 MG Oral Tablet (CeleXA)Indications :Adjustment disorder with depressed mood Take 1 Tablet by mouth daily. 90 Tablet 0 12/02/2022 Active hydroCHLOROthiazide 25 MG Oral Tablet (Hydrodiuril)Indica tions:HTN, goal below 140/90 Take 1 Tablet by mouth in the morning. 90 Tablet 0 12/02/2022 Active Lisinopril 40 MG Oral TabletIndications:H TN, goal below 140/90 Take 1 Tablet by mouth in the morning. 90 Tablet 0 12/02/2022 Active Anacin 400-32 MG Oral Tablet (Aspirin-Caffeine) Take by mouth. 0 Ac tive Omeprazole 20 MG Oral Capsule Delayed Release (PriLOSEC)Indicatio ns:Small cell lung cancer (HCC) Take 1 Capsule by mouth in the morning. 90 Capsule 1 01/09/2023 Active Proventil HFA 108 (90 Base) MCG/ACT Inhalation Aerosol SolutionIndications :Chronic bronchitis with wheezing (HCC),Tobacco use disorder Inhale 2 Puffs by mouth every 4 hours as needed for Wheezing or Dyspnea. 1 g 0 02/13/2023 Active Ondansetron HCl 8 MG Oral TabletIndications:S mall cell lung cancer (HCC) Take 1 Tablet by mouth every 8 hours as needed for Nausea. 30 Tablet 0 02/13/2023 Active Prochlorperazine Maleate 10 MG Oral Tablet (Compazine)Indicati ons:Small cell lung cancer (HCC) Take 1 Tablet by mouth every 6 hours as needed for Nausea. 30 Tablet 0 02/13/2023 Active levoFLOXacin 500 MG Oral TabletIndications:A cute bronchitis, unspecified organism Take 1 Tablet by mouth in the morning. 7 Tablet 0 02/13/2023 Active Clotrimazole 10 MG Mouth/Throat Derrek (Mycelex Derrek)Indications: Thrush Take 1 Lozenge by mouth 5 times a day for 14 days. 70 Lozenge 0 02/13/2023 02/27/2023 Active Magnesium Oxide -Mg Supplement 400 (240 Mg) MG Oral Tablet (Mag-Ox)Indications :Hypomagnesemia Take 1 Tablet by mouth in the morning. 30 Tablet 0 02/20/2023 Active Hospital, Clinic, or Other Facility Administered Medication Ordered Dose Route Frequency Start Date End Date Status Albuterol Sulfate (Proventil) (2.5 MG/3ML) 0.083% inhalation solution 2.5 mgIndications:SOB (shortness of breath) 2.5 mg NEBULIZER PRN 12/12/2022 12/12/2023 Act xochitl Albuterol Sulfate (Proventil) (5 MG/ML) 0.5% *conc* inhalation solution 2.5 mgIndications:SOB (shortness of breath) 2.5 mg NEBULIZER PRN 12/12/2022 12/12/2023 Act xochitl documented as of this encounter (statuses as of 02/23/2023) Active Problems Problem Noted Date Diagnosed Date Dehydration 02/13/2023 Small cell lung cancer 12/28/2022 Encounter for antineoplastic chemotherapy 2022 Prediabetes 04/02/2018 Overview: Per Prediabetes protocol #1 HTN, goal below 140/90 08/23/2013 Allergic rhinitis 01/28/2008 Tobacco use disorder 01/28/2008 documented as of this encounter (statuses as of 02/23/2023) Resolved Problems Problem Noted Date Diagnosed Date Resolved Date HTN, goal below 130/80 02/16/201208/23 Need for influenza vaccination 01/28/2008 01/03/2017 Acute pharyngitis 01/28/2008 07/31/2008 Overview: Resolved per Benign Acute Dxs Protocol documented as of this encounter (statuses as of 02/23/2023) Immunizations Name Administration Dates Next Due COVID-19 mRNA, LNP-s, No Pre serve, 2-Dose Series (Pfizer) 07/03/2020,06/12/2020 Pneumococcal Polysaccharide PPV23 (Pneumovax) 11/11/2014 SEASONAL INFLUENZA, PF, 6 M & Above, IM , (FLULAVAL or FLUZONE) 12/28/2022,12/16/2020 Seasonal Influenza, Quadriva lent, No Preserve, IM 12/13/2019,12/17/2018,12/20/2017,12/26 Seasonal Influenza, Quadriva lent,with Preserve, 3 yr & Above, IM 12/18/2016 Seasonal Influenza, Split, I IV3, With Preserve, Inj 12/03/2015,02/20/2013,01/12/2012,01/01,01/14/2009,01/28/2008,02/02/2006 TD - Tetanus/Diptheria (ADULT) 02/02/2006 TDAP (age 10 and older)(Boostrix) 02/20/2013 documented as of this encounter Social History Tobacco Use Types Packs/Day Years Used Date Smoking Tobacco: Every Day Cigarettes 1 43 Smokeless Tobacco: Never Alcohol Use Standard Drinks/Week Comments Yes 0 (1 standard drink = 0.6 oz pur e alcohol) social PHQ-2 Answer Date Recorded PHQ-2 Score 0 07/27/2018 Sex and Gender Information Value Date Recorded Sex Assigned at Female 07/27/2018 8:05 AM EDT Gender Identity Female 07/27/2018 8:05 AM EDT Sexual Orientation Straight 07/27/2018 8: 05 AM EDT Job Start Date Occupation Industry Not on file Not on file Not on file documented as of this encounter Last Filed Vital Signs Vital Sign Reading Time Taken Comments Blood Pressure 123/78 02/21/2023 11:30 AM EST Pulse 112 02/21/2023 11:30 AM EST Temperature 36.6 C (97.9 F) 02/21/2023 11:[address] Respiratory Rate 14 02/21/2023 11:30 AM EST Oxygen Saturation 96% 02/21/2023 11:30 AM EST Inhaled Oxygen Concentration - - Weight - - Height - - Body Mass Index - - documented in this encounter Nursing Notes * Keeley Schultz RN - 02/23/2023 2:58 PM EST 02/22: Goals: Patient will remain free from injury. Possible barriers to meeting goals: ambulating with IV pole Stability of the patient: Moderately stable - low risk of patient condition declining or worsening Summary regarding today's goals: Met: pt remained free of harm today Functional status at today's visit: Restricted in physically strenuous activity but ambulatory and able to carry out work on a light orsedentary nature, e.g. light house work, office work The drug name, dose, infusion volume, rate and route of administration, expiration date and time, appearance and physical integrity of the drug and rate set on the pump and sequencing of drug administration (as applicable) were verified by me and second sign-in RN. Patient was assessed for symptoms or adverse side effects during treatment. Patient tolerated treatment well without any acute issues or problems. Patient left facility in stable condition and denied any further needs. * Keeley Schultz RN - 02/23/2023 2:57 PM EST 02/21: Goals: Patient will remain free from injury. Possible barriers to meeting goals: ambulating with IV pole Stability of the patient: Moderately stable - low risk of patient condition declining or worsening Summary regarding today's goals: Met: pt remained free of harm today Functional status at today's visit: Restricted in physically strenuous activity but ambulatory and able to carry out work on a light orsedentary nature, e.g. light house work, office work The drug name, dose, infusion volume, rate and route of administration, expiration date and time, appearance and physical integrity of the drug and rate set on the pump and sequencing of drug administration (as applicable) were verified by me and second sign-in RN. Patient was assessed for symptoms or adverse side effects during treatment. Patient tolerated treatment well without any acute issues or problems. Patient left facility in stable condition and denied any further needs. * Daniela Appiah RN - 02/21/2023 11:36 AM EST Chair 8 Pt here for hydration & C3D2 Etoposide. No complaints. States she's been feeling well since treatment yesterday. Safety and Risk for Injury Patient will remain free from injury. Ensure appropriate safety devices are available. Provide and maintain safe environment. documented in this encounter Plan of Treatment Upcoming Encounters Date Type Department Care Team (Late st Contact Info) Description 03/14/2023 9:30 AM EST Laboratory Laboratory [facility] [address] [place] [phone] [place], Lab Scenery [address] [place] [address] [facility] [place] [id number] 03/14/2023 11:00 AM EST Office Visit Hematology/Oncology [facility] [address] [place] [address] Hernan Harris MD [address] [facility] [place] [address] 03/14/2023 11:30 AM EST Hem/Onc Treatment Hematology[facility]Oncology Treatment, [place] [address] [facility] [address] [place], Chair 4 Hem Onc [facility] [address] [facility] [place] [address] 03/15/2023 10:00 AM EST Hem/Onc Treatment Hematology/Oncology Treatment, [place] [address] [facility] [address] Veronica, Chair 9 Hem Onc [facility] [address] [facility] [place] [address] 03/16/2023 9:45 AM EST Hem/Onc Treatment Hematology/Oncology Treatment, [place] [address] [place] [address] Veronica, Chair 6 Hem Onc Scenery [address] [place] [address] 07/10/2023 10:20 AM EDT Office Visit Pulmonary Medicine Yuni Stein [address] [place] [phone] Vinicius Irwin MD [address] [place] [address] Health Maintenance Due Date Last Done Comments Hepatitis B (1 of 3 - 3-dose series) 1965 HIV Screening 08/03/1978 Hepatitis C Screening 08/03/1981 Zoster Vaccines (1 of 2) 08/03/1982 HPV/Co-Test 08/03/1993 Mammogram 01/31/2007 01/31/2006 Cologuard 08/03/2008 Colonoscopy 08/03/2008 Colorectal Cancer Screening 08/03/2008 Fecal Occult Blood Test 08/03/2008 Sigmoidoscopy 08/03/2008 Cervical Cancer Screening 01/06/2009 Pap Smear 01/06/2009 01/06/2006 Pneumococcal Vaccine: Pediatrics (0 to 5 Years) and At-Risk Patients (6 to 64 Years) (2 - PCV) 11/12/2015 11/11/2014 Depression Screening 07/28/2019 07/27/2018 COVID-19 Vaccine (3 - Pfizer risk series) 07/31/2020 07/03/2020, 06/12/2020 B-12 08/02/2022 08/02/2021, 01/18, 07/27/2018 HbA1c 12/09/2022 12/09/2021, 07/18, 01/31/2020, Additional history exists DTaP,Tdap,and Td Vaccines (2 - Td or Tdap) 02/20/2023 02/20/2013, 02/02/2006 GFR 02/21/2024 02/20/2023, 01/19, 01/23/2023, Additional history exists Albumin/Creatinine Ratio 08/02/2024 022, 01/31/2020, 07/27/2018 Lipid Panel 12/09/2026 12/09/2021, 07/18, 01/31/2020, Additional history exists Influenza Vaccine (FLU shot) Completed 01/2023, 12/16/2020, 12/13/2019, Additional history exists GARDASIL-HPV IMMUNIZATION SERIES Aged Out No longer eligible based on patient's age to complete this topic MENINGOCOCCAL (MENACTRA/MENVEO) Aged Out No longer eligible based on patient's age to complete this topic documented as of this encounter Medical Devices Not on filedocumented as of this encounter Visit Diagnoses Diagnosis Small cell lung cancer (HCC)- Primary Malignant neoplasm of bronchus and lung, unspecified site Encounter for antineoplastic chemotherapy documented in this encounter Administered Medications Active Administered Medications - up to 3 most recent administrations Medication Order MAR Action Action Date Dose Rate Site NSS infusion Intravenous, at 50 mL/hr, PRN, Starting on Mon02/21/23 at 1245, Until Discontinued, KVO Start Infusion 02/21/2023 11:30 AM EST 50 mL/hr oxygen GAS Inhalation, OXYGEN, First dose on Mon02/21/23 at 1600, Until Discontinued, Device/Managed by: Low Flow Device, Goal SPO2 (%): 91-95, Starting Device: Nasal Cannula, Initial Flow Rate (LPM): 2, Lowest Support: Nasal Cannula: Flow 0-6 LPM. Titrate up/down by 1 LPM., Higher Support: Non-Rebreather (NRB) Mask: Minimum of 10 LPM. Titrate to maintain bag inflation., Titration Interval: Q2 minutes and as needed., Notify Provider: For sudden DECREASE in resting SPO2 to less than 85% and when escalating delivery device. Inactive Administered Medications - up to 3 most recent administrations Medication Order MAR Action Action Date Dose Rate Site etoposide (VEPESID) 140 mg in NSS 500 mL infusion 140 mg (rounded from 139.5 mg = 75 mg/m2 1.86 m2 Treatment Plan BSA from Recorded weight), IV Piggyback, ONCE, 1 dose, On Mon02/21/23 at 1315, Administer over 60 Minutes, Recommended concentration is less than or equal to 0.4 mg/mL. If concentration is greater than 0.4 mg/mL recommend to administer through 0.22 micron low protein binding filter. Start Infusion 02/21/2023 12:21 PM EST 140 mg 500 mL/hr hEParin 100 UNIT/ML Lock Flush inj 500 Units 500 Units (5 mL), IV Lock, PRN Other, IV Flush, Starting on Mon02/21/23 at 1137, Until Mon02/22/23 at 1136, For 24 hours, Do not flush if lock, PICC, or central line not in place; IV infusing or unable to flush. Given 02/21/2023 1:30 PM EST 500 Units NSS infusion FOR HYDRATION Intravenous, at 500 mL/hr Administer over 2 Hours, ONCE, 1 dose, On Mon02/21/23 at 1215 Start Infusion 02/21/2023 11:30 AM EST 1,000 mL 500 mL/hr ondansetron (Zofran) tab 8 mg 8 mg, Oral, ONCE, On Mon02/21/23 at 1245, For 1 dose, Give 30 minutes prior to chemotherapy. Given 02/21/2023 11:43 AM EST 8 mg potassium chloride ER tab 20 mEq 20 mEq, Oral, ONCE, On Mon02/21/23 at 1245, For 1 dose, This med should NOT be Crushed or Chewed Given 02/21/2023 11:43 AM EST 20 mEq sodium chloride 0.9 % flush central line 10 mL 10 mL, IV Push, PRN Other, IV Flush, Starting on Mon02/21/23 at 1137, Until Mon02/22/23 at 1136, For 24 hours, Do not flush if lock, PICC, or central line not in place; IV infusing or unable to flush. Given 02/21/2023 1:30 PM EST 10 mL documented in this encounter Care Teams Colorer Relationship Specialty Start Date End Date Adan Rangel MD [address] [place] [address] PCP - General 12/14/05 documented as of this encounter
--- OUTSIDE RECORDS SUMMARY | 2023-03-08 13:28 | External Medical Summary | Summary of Care ---
Author Name Unknown Organization [facility] Address [address] [place] [address] Phone [phone] Care Team Providers Care Lathe Operator Contact Lens Name Role Phone Adan Rangel MD Primary Care Provider [phone]- [phone] Reason for Visit * Reason Comments Outpatient Testing Encounter Details Date Type Department Care Team (Late st Contact Info) Description 02/13/2023 9:00 AM EST Laboratory Laboratory [facility] [place] [address] [place] [phone] [place], Lab Scenery [address] [place] [address] Small cell lung cancer (HCC) Allergies Active Allergy Reactions Criticality Noted Date Comments Cromolyn Edema face/lips/tongue High 11/21/2012 Facial numbness and swelling documented as of this encounter (statuses as of 02/13/2023) Medications Medication Sig Dispensed Refills Start Date End Date Status fluticasone (FLONASE) 50 MCG/ACT nasal sprayIndications:All ergic rhinitis, unspecified seasonality, unspecified trigger Administer 2 Sprays into each nostril daily. 3 Bottle 1 01/29/2019 Active Atorvastatin Calcium 20 MG Oral Tablet (Lipitor)Indications :Dyslipidemia, goal LDL below 130 TAKE 1 TABLET BY MOUTH EVERYDAY AT BEDTIME 90 Tab 1 04/17/2020 Active Premarin 0.625 MG/GM Vaginal Cream (Estrogens Conjugated)Indicatio ns:Vaginal dryness Administer 1 g into the vagina at bedtime. As directed. 90 g 1 03/16/2022 Active Proventil HFA 108 (90 Base) MCG/ACT Inhalation Aerosol SolutionIndications: Chronic bronchitis with wheezing (HCC),Tobacco use disorder Inhale 2 Puffs by mouth every 4 hours as needed for Wheezing or Dyspnea. 1 g 0 12/01/2022 Active Benzonatate 100 MG Oral CapsuleIndications:C hronic bronchitis with wheezing (HCC),Tobacco use disorder Take 1 Capsule by mouth 3 times a day as needed for Cough. 30 Capsule 1 12/01/2022 Active glyBURIDE-metFORMIN 5-500 MG Oral TabletIndications:Pr ediabetes TAKE 1 TABLET DAILY WITH BREAKFAST 90 Tablet 0 12/02/2022 Active Citalopram Hydrobromide 20 MG Oral Tablet (CeleXA)Indications: Adjustment disorder with depressed mood Take 1 Tablet by mouth daily. 90 Tablet 0 12/02/2022 Active hydroCHLOROthiazide 25 MG Oral Tablet (Hydrodiuril)Indicat ions:HTN, goal below 140/90 Take 1 Tablet by mouth in the morning. 90 Tablet 0 12/02/2022 Active Lisinopril 40 MG Oral TabletIndications:HT N, goal below 140/90 Take 1 Tablet by mouth in the morning. 90 Tablet 0 12/02/2022 Active Anacin 400-32 MG Oral Tablet (Aspirin-Caffeine) Take by mouth. 0 Ac tive levoFLOXacin 500 MG Oral Tablet Take 1 Tablet by mouth in the morning. 7 Tablet 0 12/27/2022 Active Prochlorperazine Maleate 10 MG Oral Tablet (Compazine)Indicatio ns:Small cell lung cancer (HCC) Take 1 Tablet by mouth every 6 hours as needed for Nausea. 30 Tablet 0 12/28/2022 Active Ondansetron HCl 8 MG Oral TabletIndications:Sm all cell lung cancer (HCC) Take 1 Tablet by mouth every 8 hours as needed for Nausea. 30 Tablet 0 12/28/2022 Active Omeprazole 20 MG Oral Capsule Delayed Release (PriLOSEC)Indication s:Small cell lung cancer (HCC) Take 1 Capsule by mouth in the morning. 90 Capsule 1 01/09/2023 Active Hospital, Clinic, or Other Facility Administered [...] as of this encounter (statuses as of 02/13/2023) Active Problems Problem Noted Date Diagnosed Date Small cell lung cancer 12/28/2022 Encounter for antineoplastic chemotherapy 2022 Prediabetes 04/02/2018 Overview: Per Prediabetes protocol #1 HTN, goal below 140/90 08/23/2013 Allergic rhinitis 01/28/2008 Tobacco use disorder 01/28/2008 documented as of this encounter (statuses as of 02/13/2023) Resolved Problems Problem Noted Date Diagnosed Date Resolved Date HTN, goal below 130/80 02/16/201208/23 Need for influenza vaccination 01/28/2008 01/03/2017 Acute pharyngitis 01/28/2008 07/31/2008 Overview: Resolved per Benign Acute Dxs Protocol documented as of this encounter (statuses as of 02/13/2023) Immunizations Name Administration Dates Next Due COVID-19 mRNA, LNP-s, No Pre serve, 2-Dose Series ([employer]) 07/03/2020,06/12/2020 Pneumococcal Polysaccharide PPV23 (Pneumovax) 11/11/2014 SEASONAL [...] on file documented as of this encounter Plan of Treatment Upcoming Encounters Date Type Department Care Team (Latest Contact Info) Description 02/13/2023 9:30 AM EST Office Visit Hematology/Oncology [place] [address] [place] [address] [facility] Sumner CR[facility] [address] [facility] [place] [address] PENDING VISIT DRAFT 02/13/2023 10:00 AM EST Hem/Onc Treatment Hematology/[address], [address] [address] Veronica, Chair 4 Hem Onc Scenery [facility] [address] [place] [address] Arrived 02/14/2023 9:00 AM EST Hem/Onc Treatment [facility] [place] [facility] [address] [place], Chair 6 Hem Onc Sc[place] [address] 02/15/2023 9:30 AM EST Hem/Onc Treatment [facility]cology Treatment, [place] [facility] [address] [place], Chair 8 Hem Onc Scenery [address] [place] [address] 03/06/2023 9:00 AM EST Laboratory Laboratory [facility] [place] [address] [place] [phone] [place], Lab Scenery [address] [facility] [place], [place] [address] 03/06/2023 9:30 AM EST Office Visit Hematology/Oncology [facility] [place] [address] [place], [place] [address] Hernan Harris MD [address] [place], [place] [address] 03/06/2023 10:00 AM EST Hem/Onc Treatment Hematology/Oncology Treatment, [place] [address] [facility], [place] [address] 03/07/2023 9:30 AM EST Hem/Onc Treatment Hematology/Oncology Treatment, [place] [address] [facility], [place] [address] Veronica, Chair 8 Hem Onc Scenery 200 [facility] [place], [place] [address] 03/08/2023 9:30 AM EST Hem/Onc Treatment Hematology/Oncology Treatment, [place] [address] [place] [address] Veronica, Chair 6 Hem Onc Scenery [address] [facility] [place], [place] [address] 07/10/2023 10:20 AM EDT Office Visit Pulmonary Medicine Yuni Stein [address] [place] [phone] Vinicius Irwin MD [address] [place] [address] Pending Results Name Type Priority Associated Diagnoses Date /Time CBC WITH WBC DIFFERENTIAL Lab STAT Small cell lung cancer (HCC) 02/13/2023 8:34 AM EST COMPREHENSIVE METABOLIC PANEL Lab STAT Small cell lung cancer (HCC) 02/13/2023 8:34 AM EST MAGNESIUM Lab STAT Small cell lung cancer (HCC) 02/13/2023 8:34 AM EST CBC Lab STAT Small cell lung cancer (HCC) 02/13/2023 8:34 AM EST DIFFERENTIAL, AUTOMATED Lab STAT Small cell lung cancer (HCC) 02/13/2023 8:34 AM EST Health Maintenance Due Date Last Done Comments Hepatitis B (1 of 3 - 3-dose series) 1965 HIV Screening 08/03/1978 Hepatitis C Screening 08/03/1981 HPV/Co-Test 08/03/1993 Mammogram 01/31/2007 01/31/2006 Cologuard 08/03/2008 Colonoscopy 08/03/2008 Colorectal Cancer Screening 08/03/2008 Fecal Occult Blood Test 08/03/2008 Sigmoidoscopy 08/03/2008 Cervical Cancer Screening 01/06/2009 Pap Smear 01/06/2009 01/06/2006 Zoster Vaccines (1 of 2) 08/03/2013 Pneumococcal Vaccine: Pediatrics (0 to 5 Years) and At-Risk Patients (6 to 64 Years) (2 - PCV) 11/12/2015 11/11/2014 Depression Screening 07/28/2019 07/27/2018 B-12 08/02/2022 08/02/2021, 01/18, 07/27/2018 COVID-19 Vaccine ( season) 2022 07/03/2020, 06/12/2020 HbA1c 12/09/2022 12/09/2021, 07/18, 01/31/2020, Additional history exists DTaP,Tdap,and Td Vaccines (2 - Td or Tdap) 02/20/2023 02/20/2013, 02/02/2006 GFR 01/24/2024 01/23/2023, 12/18, 12/16/2022, Additional history exists Albumin/Creatinine Ratio 08/02/2024 022, [...] Visit Diagnoses Diagnosis Small cell lung cancer (HCC) Malignant neoplasm of bronchus and lung, unspecified site documented in this encounter Care Teams Lathe Operator Contact Lens Relationship Specialty Start Date End Date Adan Rangel MD [address] [place] [address] PCP - General 12/14/05 documented as of this encounter
--- OUTSIDE RECORDS SUMMARY | 2023-03-08 13:28 | External Medical Summary | Summary of Care ---
Author Name Unknown Organization [facility] Address [address] [place] [address] Phone [phone] Care Team Providers Care Pump Assembler Name Role Phone Adan Rangel MD Primary Care Provider [phone]- [phone] Encounter Details Date Type Department Care Team (Late st Contact Info) Description 02/07/2023 Orders Only Hematology/Oncology, [address] [address] Hernan Harris MD [address] [place] [address] Allergies Active Allergy Reactions Criticality Noted Date Comments Cromolyn Edema face/lips/tongue High 11/21/2012 Facial numbness and swelling documented as of this encounter (statuses as of 02/07/2023) Medications Medication Sig Dispensed Refills Start Date [...] as of this encounter (statuses as of 02/07/2023) Active Problems Problem Noted Date Diagnosed Date Small cell lung cancer 12/28/2022 Encounter for antineoplastic chemotherapy 2022 Prediabetes 04/02/2018 Overview: Per Prediabetes protocol #1 HTN, goal below 140/90 08/23/2013 Allergic rhinitis 01/28/2008 Tobacco use disorder 01/28/2008 documented as of this encounter (statuses as of 02/07/2023) Resolved Problems Problem Noted Date Diagnosed Date Resolved Date HTN, goal below 130/80 02/16/201208/23 Need for influenza vaccination 01/28/2008 01/03/2017 Acute pharyngitis 01/28/2008 07/31/2008 Overview: Resolved per Benign Acute Dxs Protocol documented as of this encounter (statuses as of 02/07/2023) Immunizations Name Administration Dates Next Due COVID-19 mRNA, LNP-s, No Pre serve, 2-Dose Series (TLBX.me) 07/03/2020,06/12/2020 Pneumococcal Polysaccharide PPV23 (Pneumovax) 11/11/2014 SEASONAL [...] Description 02/13/2023 9:00 AM EST Laboratory Laboratory [facility] [place] [address] [facility] [place] [place] [id number] Veronica, Lab [address] [facility] [place] [address] 02/13/2023 9:30 AM EST Office Visit Hematology/Oncology [facility] [place] [address] [address] [place] [address] Pavithra Sumner, [facility]ER [address] [facility] [address] 02/13/2023 10:00 AM EST Hem/Onc Treatment [address]ematology/[address] [address] Veronica, Chair 4 Hem Onc [place] [address] [place] [address] 02/14/2023 9:30 AM EST Hem/Onc Treatment [facility], [place] [facility] [address] [place], Chair 6 [facility] Onc [facility] [address] [place] [address] 02/15/2023 9:30 AM EST Hem/Onc Treatment Hematology/Oncology Treatment, [place] [address] [place] [address] Veronica, Chair 8 Hem Onc [address] [place] [address] 03/06/2023 9:00 AM EST Laboratory Laboratory [facility] [place] [address] [place] [id number] Veronica, Lab [address]ery [address] [place] [address] 03/06/2023 9:30 AM EST Office Visit Hematology/Oncology [facility] [address] [place], [place] [address] Hernan Harris MD [address] [facility], [place] [address] 03/06/2023 10:00 AM EST Hem/Onc Treatment Hematology/Oncology Treatment, [place] [address] [place] [address] 03/07/2023 9:30 AM EST Hem/Onc Treatment Hematology/Oncology Treatment, [place] [address] [place] [address] Veronica, Chair 8 Hem Onc Sc[address]ery 200 [facility] [place] [address] 03/08/2023 9:30 AM EST Hem/Onc Treatment Hematology/Oncology Treatment, [place] [address] [place] [address] Veronica, Chair 6 Hem Onc [address] [place] [address] 07/10/2023 10:20 AM EDT Office Visit Pulmonary Medicine Yuni Stein [address] [place] [address] [id number] Vinicius Irwin MD [address] [place] [address] [address] Health Maintenance Due Date Last Done Comments [...] 08/02/2022 08/02/2021, 01/18, 07/27/2018 COVID-19 Vaccine ( - season) 2022 07/03/2020, 06/12/2020 HbA1c 12/09/2022 12/09/2021, [...] Not on filedocumented as of this encounter Care Teams Pump Assembler Relationship Specialty Start Date End Date Adan Rangel MD [address] [place] [address] [address] PCP - General 12/14/05 documented as of this encounter
--- OUTSIDE RECORDS SUMMARY | 2023-03-08 13:28 | External Medical Summary ---
Author Name Unknown Address Unknown Organization [id number]:[facility] [place] [address] Laboratory Report Ordering Provider Test Date Status JOHANNE PAZ 02/20/2023 09:00:37 Final Observation Date Value Abnormality Reference (Units ) Status SYNC LEUKOCYTES IN BLOOD BY AUTOMATED COUNT 02/20/2023 09:00:37 9.02 4.00-10.80 (K/uL) Final Segs 02/20/2023 09:00:37 80.1 Above high normal 40.0-75.0 (%) Final Lymphs % 02/20/2023 09:00:37 10.5 Below low normal 18.0-42.0 (%) Final Monos 02/20/2023 09:00:37 8.1 1.0-11.0 (%) Final Eosinophils 02/20/2023 09:00:37 0.7 0.0-6.0 (%) Final Basos 02/20/2023 09:00:37 0.6 0.0-2.0 (%) Final Absolute Segs 02/20/2023 09:00:37 7.23 1.80-7.70 (K/uL) Final Lymphs, absolute 02/20/2023 09:00:37 0.95 Below low normal 1.00-4.80 (K/ul) Final Monos, Abs 02/20/2023 09:00:37 0.73 0.00-1.10 (K/uL) Final Eos, Abs 02/20/2023 09:00:37 0.06 0.00-0.70 (K/uL) Final Basos, Abs 02/20/2023 09:00:37 0.05 0.00-0.20 (K/uL) Final Performing Location [facility] [place] [address]
--- OUTSIDE RECORDS SUMMARY | 2023-03-08 13:28 | External Medical Summary ---
Author Name Unknown Address Unknown Organization K09:[facility] [address] Laboratory Report Ordering Provider Test Date Status JOHANNE PAZ 02/20/2023 09:00:37 Final Observation Date Value Abnormality Reference (Units ) Status Magnesium 02/20/2023 09:00:37 1.3 Below low normal 1.5 -2.6 (mg/dL) Final Performing Location [facility] [place] [address]
--- OUTSIDE RECORDS SUMMARY | 2023-03-08 13:28 | External Medical Summary ---
Author Name Unknown Address Unknown Organization K09:[facility] [address] [place] [address] Laboratory Report Ordering Provider Test Date Status JOHANNE PAZ 02/13/2023 08:34:51 Final Observation Date Value Abnormality Reference (Units ) Status BUN 02/13/2023 08:34:51 23 Above high normal 6-20 (mg/dL) Final Creatinine 02/13/2023 08:34:51 1.3 Above high normal 0.5-1.0 (mg/dL) Final Glomerular filtration rate/1.73 sq M.predicted [Volume Rate/Area] in Serum, Plasma or Blood by Creatinine-based formula (CKD-EPI) 02/13/2023 08:34:51 46 Below low normal >=60 (mL/min) Final eGFR is calculated based on the CKD-EPI 2020 equation SODIUM 02/13/2023 08:34:51 138 135-146 (m mol/L) Final Potassium 02/13/2023 08:34:51 3.9 3.5-5.1 (m mol/L) Final Cl 02/13/2023 08:34:51 95 Below low normal 98- 107 (mmol/L) Final CO2 02/13/2023 08:34:51 33 Above high normal 22 -32 (mmol/L) Final Anion gap 02/13/2023 08:34:51 10 7-15 (mmol /L) Final Glucose 02/13/2023 08:34:51 273 Above high normal 70 -120 (mg/dL) Final Albumin 02/13/2023 08:34:51 3.6 Below low normal 3.8 -5.0 (g/dL) Final AST (Aspartate aminotransferase) 02/13/2023 08:34:51 12 10-35 (U/L) Fin al Alk Phos 02/13/2023 08:34:51 112 35-130 (U/ L) Final Bilirubin, Total 02/13/2023 08:34:51 0.2 <=1 .2 (mg/dL) Final Calcium 02/13/2023 08:34:51 9.1 8.4-10.2 ( mg/dL) Final Protein 02/13/2023 08:34:51 6.9 6.0-8.3 (g /dL) Final ALT (Alanine aminotransferase) 02/13/2023 08:34:51 9 Below low normal 10-35 (U/L) Final Performing Location [facility] [address] [place] [address]
--- OUTSIDE RECORDS SUMMARY | 2023-03-08 13:28 | External Medical Summary | Summary of Care ---
Author Name Unknown Organization [facility] Address [address] [place] [address] Phone [phone] Care Team Providers Care Seed Cleaning Machine Operator Name Role Phone Adan Rangel MD Primary Care Provider [phone] Reason for Visit * Reason Comments Chemotherapy Chemo/recheck Encounter Details Date Type Department Care Team (Late st Contact Info) Description 02/13/2023 9:30 AM EST Office Visit Hematology/Oncology [facility] [address] [place] [address] Pavithra Sumner CRNP [address] [place] [address] Small cell lung cancer (HCC)*; Encounter for antineoplastic chemotherapy; Chemotherapy induced nausea and vomiting; Cough productive of yellow sputum; Chronic bronchitis with wheezing (HCC); Tobacco use disorder; Acute bronchitis, unspecified organism; Thrush Allergies Active Allergy Reactions Criticality Noted Date Comments Cromolyn Edema face/lips/tongue High 11/21/2012 Facial numbness and swelling documented as of this encounter (statuses as of 02/15/2023) Medications Medication Sig Dispensed Refills Start Date End Date Status fluticasone (FLONASE) 50 MCG/ACT nasal sprayIndications:A llergic rhinitis, unspecified seasonality, unspecified trigger Administer 2 Sprays into each nostril daily. 3 Bottle 1 01/29/2019 Active Atorvastatin Calcium 20 MG Oral Tablet (Lipitor)Indicatio ns:Dyslipidemia, goal LDL below 130 TAKE 1 TABLET BY MOUTH EVERYDAY AT BEDTIME 90 Tab 1 04/17/2020 Active Premarin 0.625 MG/GM Vaginal Cream (Estrogens Conjugated)Indicat ions:Vaginal dryness Administer 1 g into the vagina at bedtime. As directed. 90 g 1 03/16/2022 Active Benzonatate 100 MG Oral CapsuleIndications :Chronic bronchitis with wheezing (HCC),Tobacco use disorder Take 1 Capsule by mouth 3 times a day as needed for Cough. 30 Capsule 1 12/01/2022 Active glyBURIDE-metFORMI N 5-500 MG Oral TabletIndications: Prediabetes TAKE 1 TABLET DAILY WITH BREAKFAST 90 Tablet 0 12/02/2022 Active Citalopram Hydrobromide 20 MG Oral Tablet (CeleXA)Indication s:Adjustment disorder with depressed mood Take 1 Tablet by mouth daily. 90 Tablet 0 12/02/2022 Active hydroCHLOROthiazid e 25 MG Oral Tablet (Hydrodiuril)Indic ations:HTN, goal below 140/90 Take 1 Tablet by mouth in the morning. 90 Tablet 0 12/02/2022 Active Lisinopril 40 MG Oral TabletIndications: HTN, goal below 140/90 Take 1 Tablet by mouth in the morning. 90 Tablet 0 12/02/2022 Active Anacin 400-32 MG Oral Tablet (Aspirin-Caffeine) Take by mouth. 0 Ac tive Omeprazole 20 MG Oral Capsule Delayed Release (PriLOSEC)Indicati ons:Small cell lung cancer (HCC) Take 1 Capsule by mouth in the morning. 90 Capsule 1 01/09/2023 Active Proventil HFA 108 (90 Base) MCG/ACT Inhalation Aerosol SolutionIndication s:Chronic bronchitis with wheezing (HCC),Tobacco use disorder Inhale 2 Puffs by mouth every 4 hours as needed for Wheezing or Dyspnea. 1 g 0 02/13/2023 Active Ondansetron HCl 8 MG Oral TabletIndications: Small cell lung cancer (HCC) Take 1 Tablet by mouth every 8 hours as needed for Nausea. 30 Tablet 0 02/13/2023 Active Prochlorperazine Maleate 10 MG Oral Tablet (Compazine)Indicat ions:Small cell lung cancer (HCC) Take 1 Tablet by mouth every 6 hours as needed for Nausea. 30 Tablet 0 02/13/2023 Active levoFLOXacin 500 MG Oral TabletIndications: Acute bronchitis, unspecified organism Take 1 Tablet by mouth in the morning. 7 Tablet 0 02/13/2023 Active Clotrimazole 10 MG Mouth/Throat Mary (Mycelex Mary)Indications :Thrush Take 1 Lozenge by mouth 5 times a day for 14 days. 70 Lozenge 0 02/13/2023 3 Active Proventil HFA 108 (90 Base) MCG/ACT Inhalation Aerosol SolutionIndication s:Chronic bronchitis with wheezing (HCC),Tobacco use disorder Inhale 2 Puffs by mouth every 4 hours as needed for Wheezing or Dyspnea. 1 g 0 12/01/2022 3 Discontinue d(Refill) levoFLOXacin 500 MG Oral Tablet Take 1 Tablet by mouth in the morning. 7 Tablet 0 12/27/2022 3 Discontinue d(Refill) Prochlorperazine Maleate 10 MG Oral Tablet (Compazine)Indicat ions:Small cell lung cancer (HCC) Take 1 Tablet by mouth every 6 hours as needed for Nausea. 30 Tablet 0 12/28/2022 3 Discontinue d(Refill) Ondansetron HCl 8 MG Oral TabletIndications: Small cell lung cancer (HCC) Take 1 Tablet by mouth every 8 hours as needed for Nausea. 30 Tablet 0 12/28/2022 3 Discontinue d(Refill) Hospital, Clinic, or Other Facility Administered Medication [...] as of this encounter (statuses as of 02/15/2023) Active Problems Problem Noted Date Diagnosed Date Dehydration 02/13/2023 Small cell lung cancer 12/28/2022 Encounter for antineoplastic chemotherapy 2022 Prediabetes 04/02/2018 Overview: Per Prediabetes protocol #1 HTN, goal below 140/90 08/23/2013 Allergic rhinitis 01/28/2008 Tobacco use disorder 01/28/2008 documented as of this encounter (statuses as of 02/15/2023) Resolved Problems Problem Noted Date Diagnosed Date Resolved Date HTN, goal below 130/80 02/16/201208/23 Need for influenza vaccination 01/28/2008 01/03/2017 Acute pharyngitis 01/28/2008 07/31/2008 Overview: Resolved per Benign Acute Dxs Protocol documented as of this encounter (statuses as of 02/15/2023) Immunizations Name Administration Dates Next Due COVID-19 mRNA, LNP-s, No Pre serve, 2-Dose Series (Aceris 3D Inspection) 07/03/2020,06/12/2020 Pneumococcal Polysaccharide PPV23 (Pneumovax) 11/11/2014 SEASONAL [...] Day Cigarettes 1 43 Smokeless Tobacco: Never Tobacco Cessation:Ready to Q uit: Not Asked; Counseling Given: Not Answered Alcohol Use Standard Drinks/Week Comments Yes 0 [...] Sign Reading Time Taken Comments Blood Pressure 94/56 02/13/2023 9:30 AM EST Pulse 109 02/13/2023 9:30 AM EST Temperature 36.9 C (98.4 F) 02/13/2023 9:30 AM ES T Respiratory Rate 16 02/13/2023 9:30 AM EST Oxygen Saturation 93% 02/13/2023 9:30 AM EST Inhaled Oxygen Concentration - - Weight 76.1 kg (167 lb 12.8 oz) 02/13/2023 9:30 AM EST Height 157.5 cm (5' 2") 02/13/2023 9:30 AM EST Body Mass Index 30.69 02/13/2023 9:30 AM EST documented in this encounter Progress Notes * Pavithra Sumner CRNP - 02/13/2023 9:30 AM EST Images from the original note were not included. Hematology/Oncology Outpatient Clinic note [facility] [address] [place] [address] Name: Kimberly Wheatley Date: 02/12/2023 CHIEF COMPLAINT: Kimberly Wheatley is a 57 year old female patient of Dr. Becerra Kimberly here today for f/u visit today. From Patient chart confirmed with patient. 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 She was seen at the urgent care center and had chest x-ray done which shows abnormality. Subsequently she would a CT scan of chest done on 12/06/2022 which shows large mass mediastinum most likely representing primary pulmonary neoplasm, left upper lobe nodule with nonspecific, left hepatic lobe lesion most likely hemangioma. PET scan was done on 12/20/2022 which shows 8 (CC) x 6 (AP) x 11 (TV) cm metabolically-active confluent lymph node conglomerate centered within the AP window and extending to the left paratracheal region, precarinal and bilateral hilar regions, new since October 27, 2011 CT, 1.5 (CC) x 1.0 (AP) x 1.4(TV) cm nonhypermetabolic lobular peripheral branching pulmonary nodule within the left upper lobe,suggests mucoid impaction. She had bronchoscopy with endobronchial ultrasound done on 12/21/2022 which shows distal tracheal narrowing on the left side with narrowing of the left mainstem noted. Endobronchial lesion noted within the left mainstem. FNA is positive for small-cell neuroendocrine carcinoma. Left main stem bronchial lavage is also positive for small-cell neuroendocrine carcinoma with high Ki-67 index of >90%. Final Diagnosis A. Lung, Bronchial wash: Adequacy: Satisfactory for evaluation. Category: Malignant. Interpretation: Small cell neuroendocrine carcinoma. Other: Cellblock: The histological sections of the cellblock preparation show similar findings. B. Lung, Left Mainstem, Bronchoalveolar lavage: Adequacy: Satisfactory for evaluation. Category: Malignant. Interpretation: Small cell neuroendocrine carcinoma. Other: Comment: No viral inclusions identified., GMS stain on the cell block is negative for pneumocystis and negative for other fungal elements., Cellblock: The histological sections of the cellblock preparation show similar findings. C. Lymph Node, 4R, EBUS transbronchial fine needle aspiration: Adequacy: Satisfactory for evaluation. Category: Malignant. Interpretation: Small cell neuroendocrine carcinoma. See comment. Other: Cellblock: The histological sections of the cellblock preparation show similar findings. Comment: Immunohistochemical stains show the tumor cells to be positive for TTF- 1, synaptophysin, CD56, and markedly increased Ki-67 proliferative index (>90%), supporting the diagnosis of small cell neuroendocrine carcinoma. D. Lymph Node, 4L, EBUS transbronchial fine needle aspiration: Adequacy: Satisfactory for evaluation. Category: Malignant. Interpretation: Small cell neuroendocrine carcinoma. Other: Cellblock: The histological sections of the cellblock preparation show similar findings. E. Lymph Node, Left Mainstem, Fine needle aspiration: Adequacy: Satisfactory for evaluation. Category: Malignant. Interpretation: Small cell neuroendocrine carcinoma. Other: Cellblock: The histological sections of the cellblock preparation show similar findings. F. Lung, Left Mainstem, Endoscopic brushing: Adequacy: Satisfactory for evaluation. Category: Malignant. Interpretation: Small cell neuroendocrine carcinoma. Other: Cellblock: The histological sections of the cellblock preparation are hypocellular. G. Lung, Left Mainstem, Transbronchial biopsy: Adequacy: Satisfactory for evaluation. Category: Malignant. Interpretation: Small cell neuroendocrine carcinoma. Other: Cellblock: The histological sections of the cellblock preparation show similar findings. She is complaining of heaviness in the chest and cough. Denies any hemoptysis. She is also having episodes of headache. Denies any abdominal pain, bleeding, bruising, nausea, vomiting, fever, night sweats. She quit smoking about 2 weeks ago. She used to smoke 1 pack per day for over 30 years. Denies drinking. Family history significant for mother with cancer of unknown type. Three maternal uncles were also diagnosed of some type of cancer Interval History: MRI Brain [facility] 01/05/23: HISTORY OF PRESENT ILLNESS: Kimberly Wheatley is a 57 year old female with a history as outlined above. Currently here for f/u visit today and consideration for C3D1 of treatment. Patient with increased cough over the last two weeks. Coughing up green sputum. Denies documented fevers but has been sweating at night. Denies wheezing or significant increase in SOB. Vomited last night twice. Also having liquid stools over the weekend but this has not happened since. Denies mouth sores or pain. Food tastes foul. Does have thrush. Quit smoking for about one month now. Denies numbness or tingling. Denies ringing in the ears. Past Medical History: Diagnosis Date ALLERGIC RHINITIS NOS 01/28/2008 DM (diabetes mellitus) (HCC) HTN, goal below 130/80 02/16/2012 Hyperlipidemia Papanicolaou smear of cervix with atypical squamous cells cannot exclude high grade squamous intraepithelial lesion (ASC-H) 03/20/1988 Past Surgical History: Procedure Laterality Date BRONCHOSCOPY, DX W/ EBUS, 1-2 NODES N/A 12/21/2022 BRONCHOSCOPY, RIGID/FLEXIBLE, INCLUDE FLUORO GUIDANCE, WHEN PERFORMED; W/ EBUS GUIDED TRANSTRACH AND/OR TRANSBRONCH SAMPLING, 1 OR 2 MEDIASTINAL AND/OR HILAR LYMPH NODE STATIONS/STRUCTURES performed by Vinicius Irwin MD at OR [facility] COLPOSCOPY OF CERVIX W/BIOPSY 1988 HYSTEROSCOPY;ENDOMETRIAL ABLAT LAPAROSCOPY; CHOLECYSTECTOMY 11/11/2011 11/11/2011 laparoscopic cholecystectomy - [facility] - Dr. Vinay Torres Social History Socioeconomic History Marital status: Spouse name: Not on file Number of children: Not on file Years of education: Not on file Highest education level: Not on file Occupational History Not on file Tobacco Use Smoking status: Every Day Packs/day: 1.00 Years: 43.00 Additional pack years: 0.00 Total pack years: 43.00 Types: Cigarettes Smokeless tobacco: Never Vaping Use Vaping Use: Never used Substance and Sexual Activity Alcohol use: Yes Comment: social Drug use: Never Sexual activity: Yes Partners: Male control/protection: Surgical Comment: vas Other Topics Concern Not on file Social History Narrative One dog in the house, out side cats No mold [place] heating Social Determinants of Health Financial Resource Strain: Not on file Food Insecurity: Not on file Transportation Needs: Not on file Physical Activity: Not on file Stress: Not on file Social Connections: Not on file Intimate Partner Violence: Not on file Housing Stability: Not on file Review of patient's allergies indicates: Allergen Reactions Cromolyn Edema face/lips/tongue Facial numbness and swelling Current Outpatient Medications Medication Sig Dispense Refill fluticasone (FLONASE) 50 MCG/ACT nasal spray Administer 2 Sprays into each nostril daily. 3 Bottle 1 Atorvastatin Calcium 20 MG Oral Tablet (Lipitor) TAKE 1 TABLET BY MOUTH EVERYDAY AT BEDTIME 90 Tab 1 Premarin 0.625 MG/GM Vaginal Cream (Estrogens Conjugated) Administer 1 g into the vagina at bedtime. As directed. 90 g 1 Proventil HFA 108 (90 Base) MCG/ACT Inhalation Aerosol Solution Inhale 2 Puffs by mouth every 4 hours as needed for Wheezing or Dyspnea. 1 g 0 Benzonatate 100 MG Oral Capsule Take 1 Capsule by mouth 3 times a day as needed for Cough. 30 Capsule 1 glyBURIDE-metFORMIN 5-500 MG Oral Tablet TAKE 1 TABLET DAILY WITH BREAKFAST 90 Tablet 0 Citalopram Hydrobromide 20 MG Oral Tablet (CeleXA) Take 1 Tablet by mouth daily. 90 Tablet 0 hydroCHLOROthiazide 25 MG Oral Tablet (Hydrodiuril) Take 1 Tablet by mouth in the morning. 90 Tablet 0 Lisinopril 40 MG Oral Tablet Take 1 Tablet by mouth in the morning. 90 Tablet 0 Anacin 400-32 MG Oral Tablet (Aspirin-Caffeine) Take by mouth. levoFLOXacin 500 MG Oral Tablet Take 1 Tablet by mouth in the morning. 7 Tablet 0 Prochlorperazine Maleate 10 MG Oral Tablet (Compazine) Take 1 Tablet by mouth every 6 hours as needed for Nausea. 30 Tablet 0 Ondansetron HCl 8 MG Oral Tablet Take 1 Tablet by mouth every 8 hours as needed for Nausea. 30 Tablet 0 Omeprazole 20 MG Oral Capsule Delayed Release (PriLOSEC) Take 1 Capsule by mouth in the morning. 90Capsule 1 Current Facility-Administered Medications Medication Dose Route Frequency Provider Last Rate Last Admin Albuterol Sulfate (Proventil) (2.5 MG/3ML) 0.083% inhalation solution 2.5 mg 2.5 mg Nebulizer Vinicius Shore MD Albuterol Sulfate (Proventil) (5 MG/ML) 0.5% *conc* inhalation solution 2.5 mg 2.5 mg Nebulizer Vinicius Whittaker MD REVIEW OF SYSTEMS: See HPI - otherwise negative OBJECTIVE: Filed Vitals: 02/13/23 0930 BP: 94/56 Pulse: 109 Resp: 16 Temp: 36.9 C (98.4 F) TempSrc: Tympanic SpO2: 93% Weight: 76.1 kg (167 lb 12.8 oz) Height: 1.575 m (5' 2") Wt Readings from Last 5 Encounters: 02/13/23 76.1 kg (167 lb 12.8 oz) 01/23/23 76.7 kg (169 lb) 12/28/22 78.2 kg (172 lb 6.4 oz) 12/21/22 78.9 kg (174 lb) 12/12/22 78.9 kg (174 lb) PHYSICAL EXAM: ECOG: Performance Status 1 = 80-90% Symptoms but nearly ambulatory General Appearance: No acute distress HEENT: +oral thrush Lymph Nodes: Normal - No palpable lymph nodes in the neck or supraclavicular areas Lungs/Thorax: Clear and diminished throughout to auscultation Heart: Regular rhythm, +tachycardia, normal S1, S2, no appreciable murmurs Pulses/Extremities: Normal - 2+ throughout and symmetrical, no edema Neurologic: Normal - Grossly intact LABS: Results for orders placed or performed in visit on 02/13/23 COMPREHENSIVE METABOLIC PANEL Result Value Ref Range BUN 23 (H) 6 - 20 mg/dL Creatinine 1.3 (H) 0.5 - 1.0 mg/dL Estimated Glomerular Filtration Rate 46 (L) >=60 mL/min Sodium 138 135 - 146 mmol/L Potassium 3.9 3.5 - 5.1 mmol/L Chloride 95 (L) 98 - 107 mmol/L CO2 33 (H) 22 - 32 mmol/L Anion Gap 10 7 - 15 mmol/L Glucose 273 (H) 70 - 120 mg/dL Albumin 3.6 (L) 3.8 - 5.0 g/dL AST 12 10 - 35 U/L Alkaline Phosphatase 112 35 - 130 U/L Bilirubin, Total 0.2 <=1.2 mg/dL Calcium 9.1 8.4 - 10.2 mg/dL Protein 6.9 6.0 - 8.3 g/dL ALT 9 (L) 10 - 35 U/L MAGNESIUM Result Value Ref Range Magnesium 1.4 (L) 1.5 - 2.6 mg/dL CBC Result Value Ref Range WBC 14.45 (H) 4.00 - 10.80 K/uL RBC 3.64 3.85 - 5.15 M/uL HGB 10.6 (L) 12.0 - 15.3 g/dL HCT 31.7 (L) 36.0 - 45.2 % MCV 87.1 81.5 - 97.5 fL MCH 29.1 27.0 - 34.0 pg MCHC 33.4 32.0 - 36.0 g/dL RDW 14.4 11.5 - 15.5 % PLT 245 140 - 400 K/uL MPV 10.6 6.6 - 11.1 fL DIFFERENTIAL, TECHNOLOGIST REVIEW Result Value Ref Range WBC 14.45 (H) 4.00 - 10.80 K/uL Neutrophils % 89.0 (H) 40.0 - 75.0 % Lymphocytes % 8.0 (L) 18.0 - 42.0 % Monocytes % 1.0 1.0 - 11.0 % Metamyelocytes % 2.0 (H) <=0.0 % Absolute Neutrophils 12.86 (H) 1.80 - 7.70 K/uL Absolute Lymphocytes 1.16 1.00 - 4.80 K/uL Absolute Monocytes 0.14 0.00 - 1.10 K/uL Absolute Metamyelocytes 0.29 (H) <=0.00 K/uL nRBCs IMPRESSION/PLAN: 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 Will defer C3D1 of treatment x 1 week Will proceed with IV hydration and antiemetics only today - 1L NSS with 1g Mg over 2 hours, Zofran 8 mg IV x 1 and Dexamethasone 8 mg IV x 1 today Renewed prescription for prophylactic antiemetics per patient request. STAT chest x ray ordered today Prescription placed for Levaquin 500 mg daily x 7 days Renewed prescription for Proventil inhaler today Prescription placed for Mycelex mary 5 x daily for 14 days. Encouraged good oral care. Encouraged to push oral fluids Planned for four total cycles. Planned for 30 total treatments or radiation therapy. Last scheduled 03/06/23. Congratulated patient on smoking cessation RTC in one week for chemo return DORON Chaudhry documented in this encounter Nursing Notes * Falguni Adams CMA - 02/13/2023 9:31 AM EST Patient identifed by name and birthdate Do you have any concerns about pain management for today's visit? No Living Will or Advance Directive for Health Care as noted on the problem list. [facility] is a way you can talk to your provider on line through e-mail. Would you like to sign up? I can activate it for you? ALREADY ACTIVE Filed Vitals: 02/13/23 0930 BP: 94/56 Pulse: 109 Resp: 16 Temp: 36.9 C (98.4 F) TempSrc: Tympanic SpO2: 93% Weight: 76.1 kg (167 lb 12.8 oz) Height: 1.575 m (5' 2") Patient was instructed to not get up on the exam table/exam chair until directed and assisted by their provider; patient is to remain seated in the chair/ wheelchair/ exam table/ exam chair for fall prevention and safety reasons. Patient is aware to have assistance to step down off exam table/exam chair with personnel. Patient voiced full comprehension of instructions. documented in this encounter Plan of Treatment Upcoming Encounters Date Type Department Care Team (Late st Contact Info) Description 02/20/2023 9:10 AM EST Laboratory Laboratory [facility] [place] [address] [place] [phone] Veronica Lab [facility] [place] [id number] 02/20/2023 9:30 AM EST Office Visit Hematology/Oncology [facility] [place] [id number] Pavithra Sumner CRNP [address] [facility] [place] [address] 02/20/2023 10:00 AM EST Hem/Onc Treatment Hematology/Oncology Treatment, [address] [place] [address] 02/21/2023 11:30 AM EST Hem/Onc Treatment Hematology/Oncology Treatment [address] [place] [address] Veronica, Chair 3 Hem Onc Scenery [address] [place] [id number] 02/22/2023 1:00 PM EST Hem/Onc Treatment Hematology/Oncology Treatment, [place] [address] [place] [address] Veronica, Chair 7 Hem Onc Scenery [address] [place], [place] [address] 03/06/2023 9:00 AM EST Laboratory Laboratory [facility] [place] [address] [place], [place] [phone] Veronica, Lab Scenery [address] [place], [place] [address] 03/06/2023 9:30 AM EST Office Visit Hematology/Oncology [facility] [address] [place], [place] [address] Hernan Harris MD [address] [place], [place] [address] 03/06/2023 10:00 AM EST Hem/Onc Treatment Hematology/Oncology Treatment, [address], [place] [address] 03/07/2023 9:30 AM EST Hem/Onc Treatment Hematology/Oncology Treatment, [place] [address] [place] [address] Veronica, Chair 8 Hem Onc Scenery [address] [facility] [place] [address] 03/08/2023 9:30 AM EST Hem/Onc Treatment Hematology/Oncology Treatment, [place] [address] [place] [address] Veronica, Chair 6 Hem Onc Scenery [address] [place] [address] 07/10/2023 10:20 AM EDT Office Visit Pulmonary Medicine Yuni Stein [address] [place] [phone] Vinicius Irwin MD [address] [place] [address] Scheduled Orders Name Type Priority Associated Diagnoses Orde r Schedule XR CHEST 2 VIEWS Medical Imaging STAT Small cell lung cancer (HCC) Cough productive of yellow sputum Ordered: 02/13/2023 Health Maintenance Due Date Last Done Comments [...] Td or Tdap) 02/20/2023 02/20/2013, 02/02/2006 GFR 02/14/2024 02/13/2023, 11/08/2022, 12/30/2022, Additional history exists Albumin/Creatinine Ratio 08/02/2024 022, [...] lung, unspecified site Encounter for antineoplastic chemotherapy Chemotherapy induced nausea and vomiting Nausea with vomiting Cough productive of yellow sputum Chronic bronchitis with wheezing (HCC) Tobacco use disorder Acute bronchitis, unspecified organism Thrush Candidiasis of mouth documented in this encounter Care Teams Seed Cleaning Machine Operator Relationship Specialty Start Date End Date Adan Rangel MD [address] [place] [address] PCP - General 12/14/05 documented as of this encounter
--- OUTSIDE RECORDS SUMMARY | 2023-03-08 13:28 | External Medical Summary | Summary of Care ---
Author Name Unknown Organization [facility] Address [address] [place] [address] Phone [phone] Care Team Providers Care Waiter/Waitress First Class Name Role Phone Adan Rangel MD Primary Care Provider [phone]- [phone] Reason for Visit * Reason Comments Chemotherapy C3/D1 - Cisplatin/Et oposide * Episode Based Medications (Routine) - Authorized Specialty Diagnoses / Procedures Referred By Alvaro bennett Referred To Contact Diagnoses Small cell lung cancer (HCC) Encounter for antineoplastic chemotherapy Procedures LA FOSAPREPITANT INJECTION LA CISPLATIN 10 MG INJECTION LA ETOPOSIDE 10 MG INJ Hernan Harris MD [address] [place] [address] Hem/Onc [address] [address] Referral ID Status Reason Start Date Expiration Date V isits Requested Visits Authorized [id number] Authorized 12/29/2022 12/30/2023 [id number] Encounter Details Date Type Department Care Team (Latest Contact Info) Description 02/20/2023 10:00 AM EST Hem/Onc Treatment Hematology/Oncolog y Treatment, [place] [address] [place] [address] Small cell lung cancer (HCC)*; Encounter for antineoplastic chemotherapy Allergies Active Allergy Reactions Criticality Noted Date Comments Cromolyn Edema face/lips/tongue High 11/21/2012 Facial numbness and swelling documented as of this encounter (statuses as of 02/20/2023) Medications Medication Sig Dispensed Refills Start Date [...] days. 70 Lozenge 0 02/13/2023 02/27/2023 Active Hospital, Clinic, or Other Facility Administered [...] as of this encounter (statuses as of 02/20/2023) Active Problems Problem Noted Date Diagnosed Date Dehydration 02/13/2023 Small cell lung cancer 12/28/2022 Encounter for antineoplastic chemotherapy 2022 Prediabetes 04/02/2018 Overview: Per Prediabetes protocol #1 HTN, goal below 140/90 08/23/2013 Allergic rhinitis 01/28/2008 Tobacco use disorder 01/28/2008 documented as of this encounter (statuses as of 02/20/2023) Resolved Problems Problem Noted Date Diagnosed Date Resolved Date HTN, goal below 130/80 02/16/201208/23 Need for influenza vaccination 01/28/2008 01/03/2017 Acute pharyngitis 01/28/2008 07/31/2008 Overview: Resolved per Benign Acute Dxs Protocol documented as of this encounter (statuses as of 02/20/2023) Immunizations Name Administration Dates Next Due COVID-19 [...] on file documented as of this encounter Nursing Notes * Keeley Schultz RN - 02/20/2023 3:41 PM EST Chair 3. IV inserted. Patient saw DORON Morgan today -- see OV note for details. Patient overall feeling well today, much better compared to last week. Per Pavithra Sumner, will addon 1L NSS for hydration for days 2 and 3 of this cycle to address CR of 1.3. Patient is also ordered magnesium to pickers material handlers and start taking PO at home d/t low magnesium. Patient will f/u with Dr. Harris prior to her next and final chemo cycle. Radiation completed 03/14. Etoposide will be dose reducedtoday. Chemo agents Cisplatin, Etoposide ABN Labs WNL for tx overall Alt in Tx: N/A Return in 1 day Safety and Risk for Injury Patient will remain free from injury. Ensure appropriate safety devices are available. Provide and maintain safe environment. Goals: Patient will remain free from injury. [...] well without any acute issues or problems. IV left in place for tx tomorrow. Patient left facility in stable condition and denied any further needs. RN did not administer PO Potassium today -- will administer PO 20 meq Potassium tomorrow when patient arrives for Etoposide tx. documented in this encounter Plan of Treatment Upcoming Encounters Date Type Department Care Team (Late st Contact Info) Description 02/21/2023 11:30 AM EST Hem/Onc Treatment Hematology/Oncology Treatment, [place] 200 [facility] [place] [address] Veronica, Chair 3 Hem Onc [address] [place] [address] 02/22/2023 1:00 PM EST Hem/Onc Treatment Hematology/Oncology Treatment, [place] 200 [facility] [place] [address] Veronica, Chair 7 Hem Onc [address] [place] [address] 03/14/2023 9:30 AM EST Laboratory Laboratory [facility] [address] [place], [place] [phone] Ver[place], Lab [facility] 200 [facility] [place], [place] [address] 03/14/2023 11:00 AM EST Office Visit Hematology/Oncology [facility] [place] [address] [place], [place] [address] Hernan Harris MD [facility] [place] [address] 03/14/2023 11:30 AM EST Hem/Onc Treatment Hematology/Oncology Treatment, [address], [place] [address] Veronica, Chair 4 Hem Onc [facility] [address] [place] [address] [place], [place] [address] 03/15/2023 10:00 AM EST Hem/Onc Treatment Hematology/Oncology Treatment, [address] [place] [address] Veronica, Chair 9 Hem Onc Scenery [address] [place] [address] [place], [place] [address] 03/16/2023 9:45 AM EST Hem/Onc Treatment Hematology/Oncology Treatment, [address], [place] [address] Veronica, Chair 6 Hem Onc Scenery 200 [place] [address] 07/10/2023 10:20 AM EDT Office Visit Pulmonary Medicine Yuni Stein [address] [place] [phone] Vinicius Irwin MD [address] [place] [address] Health Maintenance Due Date Last Done Comments [...] B-12 08/02/2022 08/02/2021, 01/18, 07/27/2018 COVID-19 Vaccine (3 - 2022- season) 2022 07/03/2020, 06/12/2020 HbA1c 12/09/2022 12/09/2021, [...] MAR Action Action Date Dose Rate Site diphenhydrAMINE (Benadryl) inj 50 mg 50 mg, IV Push, ONCE PRN Other, Hypersensitivity Reaction, Starting on Mon02/20/23 at 1016, Until Mon02/21/23 at 1015, For 24 hours EPINEPHrine 1 MG/ML inj 0.3 mg 0.3 mg, Intramuscular, ONCE PRN Other, Hypersensitivity Reaction or Anaphylaxis, Starting on Mon02/20/23 at 1016, Until Mon02/21/23 at 1015, For 24 hours hEParin 100 UNIT/ML Lock Flush inj 500 Units 500 Units (5 mL), IV Lock, PRN Other, IV Flush, Starting on Mon02/20/23 at 1016, Until Mon02/21/23 at 1015, For 24 hours, Do not flush if lock, PICC, or central line not in place; IV infusing or unable to flush. Given 02/20/2023 3:13 PM EST 500 Units Hydrocortisone Sod Suc (PF) (Solu-Cortef) inj 100 mg 100 mg, IV Push, ONCE PRN Other, Hypersensitivity Reaction, Starting on Mon02/20/23 at 1016, Until Mon02/21/23 at 1015, For 24 hours NSS 1,000 mL with magnesium sulfate 1 g infusion Intravenous, at 500 mL/hr Administer over 2 Hours, Post-cisplatin hydration, CONTINUOUS, Starting on Mon02/20/23 at 1300, Until Discontinued Start Infusion 02/20/2023 1:19 PM EST 500 mL/hr oxygen GAS Inhalation, OXYGEN, First dose on Mon02/20/23 at 1100, Until Discontinued, Device/Managed by: Low Flow Device, [...] than 85% and when escalating delivery device. sodium chloride 0.9 % flush central line 10 mL 10 mL, IV Push, PRN Other, IV Flush, Starting on Mon02/20/23 at 1016, Until Mon02/21/23 at 1015, For 24 hours, Do not flush if lock, PICC, or central line not in place; IV infusing or unable to flush. Given 02/20/2023 3:12 PM EST 10 mL Inactive Administered Medications - up to 3 most recent administrations Medication Order MAR Action Action Date Dose Rate Site CISplatin (Platinol) 140 mg in NSS 500 mL infusion 140 mg (rounded from 139.5 mg = 75 mg/m2 1.86 m2 Treatment Plan BSA from Recorded weight), IV Piggyback, Administer over 60 Minutes, PROTECT FROM LIGHT, ONCE, 1 dose, On Mon02/20/23 at 1330 Start Infusion 02/20/2023 12:02 PM EST 140 mg 500 mL/hr etoposide (VEPESID) 140 mg in NSS 500 mL infusion 140 mg (rounded from 139.5 mg = 75 mg/m2 1.86 m2 Treatment Plan BSA from Recorded weight), IV Piggyback, ONCE, 1 dose, On Mon02/20/23 at 1430, Administer over 60 Minutes, Recommended concentration is less than or equal to 0.4 mg/mL. If concentration is greater than 0.4 mg/mL recommend to administer through 0.22 micron low protein binding filter. Start Infusion 02/20/2023 1:18 PM EST 140 mg 500 mL/hr Fosaprepitant Dimeglumine (Emend) 150 mg, ondansetron (Zofran) 16 mg, dexamethasone sodium phosphate 12 mg in NSS 250 mL Infusion 150 mg, IV Piggyback, ONCE, 1 dose, On Mon02/20/23 at 1130, Administer over 30 Minutes, Give 30 minutes prior to chemotherapy. Infuse over 30 minutes. Start Infusion 02/20/2023 10:48 AM EST 150 mg 500 mL/hr NSS infusion 1,000 mL, Intravenous, at 500 mL/hr, CONTINUOUS, Starting on Mon02/20/23 at 1130, Until Mon02/20/23 at 1329 Start Infusion 02/20/2023 10:05 AM EST 1,000 mL 500 mL/hr documented in this encounter Care Teams Waiter/Waitress First Class Relationship Specialty Start Date End Date Adan Rangel MD [address] [facility] [address] PCP - General 12/14/05 documented as of this encounter
--- OUTSIDE RECORDS SUMMARY | 2023-03-08 13:28 | External Medical Summary | Summary of Care ---
Author Name Unknown Organization [facility] Address [address] [place] [address] Phone [phone] Care Team Providers Care Field Agent Name Role Phone Adan Rangel MD Primary Care Provider [phone]- [phone] Reason for Visit * Reason Comments Chemotherapy Chemo/recheck Encounter Details Date Type Department Care Team (Late st Contact Info) Description 02/20/2023 9:30 AM EST Office Visit Hematology/Oncology [facility] [address] [place] [address] Pavithra Sumner CRNP [address] [place] [address] Small cell lung cancer (HCC)*; Encounter for antineoplastic chemotherapy; Hypomagnesemia; Dehydration Allergies Active Allergy Reactions Criticality Noted Date [...] mRNA, LNP-s, No Pre serve, 2-Dose Series (Tizaro) 07/03/2020,06/12/2020 Pneumococcal Polysaccharide PPV23 (Pneumovax) 11/11/2014 SEASONAL [...] Sign Reading Time Taken Comments Blood Pressure 120/83 02/20/2023 9:23 AM EST Pulse 126 02/20/2023 9:23 AM EST Temperature 36.6 C (97.9 F) 02/20/2023 9:23 AM ES T Respiratory Rate 16 02/20/2023 9:23 AM EST Oxygen Saturation 94% 02/20/2023 9:23 AM EST Inhaled Oxygen Concentration - - Weight 76.2 kg (167 lb 14.4 oz) 02/20/2023 9:23 AM EST Height 157.5 cm (5' 2") 02/20/2023 9:23 AM EST Body Mass Index 30.71 02/20/2023 9:23 AM EST documented in this encounter Progress Notes * Pavithra Sumner, DORON - 02/20/2023 9:30 AM EST Images from the original note were not included. Hematology/Oncology Outpatient Clinic note [facility] [address] [place], [place] [address] Name: Kimberly Wheatley Date: 02/18/2023 CHIEF COMPLAINT: Kimberly Wheatley is a 57 [...] type of cancer Interval History: MRI Brain [facility] 01/05/23: HISTORY OF PRESENT ILLNESS: Kimberly Wheatley is a 57 year old female with a history as outlined above. Currently here for f/u visit today and consideration for C3D1 of treatment. Cough has lessened. No longer coughing up green sputum. Rarely has to use rescue inhaler. Night sweats did seem to improve though she did have some last night. Denies wheezing or significant increase in SOB. Denies vomiting or diarrhea since last week. Food tasting better since starting to treat the thrush. Denies mouth sores or pain. Weight is stable. Quit smoking for about one month now. Denies numbness or tingling. Denies ringing in the ears. Has been having more trouble controlling her blood sugars while on chemo. Up and down. Could be dri nking more water. Past Medical History: Diagnosis Date ALLERGIC RHINITIS [...] performed by Vinicius Irwin MD at OR [facility] COLPOSCOPY OF CERVIX W/BIOPSY 1988 HYSTEROSCOPY;ENDOMETRIAL ABLAT LAPAROSCOPY; CHOLECYSTECTOMY 11/11/2011 11/11/2011 laparoscopic cholecystectomy - [facility] - Dr. Vinay Torres Social History Socioeconomic [...] the house, out side cats No mold Ida heating Social Determinants of Health Financial Resource [...] at bedtime. As directed. 90 g 1 Benzonatate 100 MG Oral Capsule Take 1 [...] MG Oral Tablet (Aspirin-Caffeine) Take by mouth. Omeprazole 20 MG Oral Capsule Delayed Release (PriLOSEC) Take 1 Capsule by mouth in the morning. 90Capsule 1 Proventil HFA 108 (90 Base) MCG/ACT Inhalation Aerosol Solution Inhale 2 Puffs by mouth every 4 hours as needed for Wheezing or Dyspnea. 1 g 0 Ondansetron HCl 8 MG Oral Tablet Take 1 Tablet by mouth every 8 hours as needed for Nausea. 30 Tablet 0 Prochlorperazine Maleate 10 MG Oral Tablet (Compazine) Take 1 Tablet by mouth every 6 hours as needed for Nausea. 30 Tablet 0 levoFLOXacin 500 MG Oral Tablet Take 1 Tablet by mouth in the morning. 7 Tablet 0 Clotrimazole 10 MG Mouth/Throat Derrek (Mycelex Derrek) Take 1 Lozenge by mouth 5 times a day for 14 days. 70 Lozenge 0 Current Facility-Administered Medications Medication Dose Route Frequency Provider Last Rate Last Admin Albuterol Sulfate (Proventil) (2.5 MG/3ML) 0.083% inhalation solution 2.5 mg 2.5 mg Nebulizer PRN Vinicius Irwin MD Albuterol Sulfate (Proventil) (5 MG/ML) 0.5% *conc* inhalation solution 2.5 mg 2.5 mg Nebulizer Vinicius Whittaker MD REVIEW OF SYSTEMS: See HPI - otherwise negative OBJECTIVE: Filed Vitals: 02/20/23 0923 BP: 120/83 Pulse: 126 Resp: 16 Temp: 36.6 C (97.9 F) TempSrc: Tympanic SpO2: 94% Weight: 76.2 kg (167 lb 14.4 oz) Height: 1.575 m (5' 2") Wt Readings from Last 5 Encounters: 02/20/23 76.2 kg (167 lb 14.4 oz) 02/13/23 76.1 kg (167 lb 12.8 oz) 01/23/23 76.7 kg (169 lb) 12/28/22 78.2 kg (172 lb 6.4 oz) 12/21/22 78.9 kg (174 lb) PHYSICAL EXAM: ECOG: Performance Status 1 = 80-90% Symptoms but nearly ambulatory General Appearance: No acute distress HEENT: Normal - No oral or pharyngeal masses, ulceration or thrush noted Lymph Nodes: Normal - No palpable lymph nodes in the neck or supraclavicular areas Lungs/Thorax: Clear and diminished throughout to auscultation Heart: Regular rhythm, +tachycardia, normal S1, S2, no appreciable murmurs Pulses/Extremities: Normal - 2+ throughout and symmetrical, no edema Neurologic: Normal - Grossly intact LABS: Results for orders placed or performed in visit on 02/20/23 COMPREHENSIVE METABOLIC PANEL Result Value Ref Range BUN 21 (H) 6 - 20 mg/dL Creatinine 1.3 (H) 0.5 - 1.0 mg/dL Estimated Glomerular Filtration Rate 46 (L) >=60 mL/min Sodium 137 135 - 146 mmol/L Potassium 3.6 3.5 - 5.1 mmol/L Chloride 96 (L) 98 - 107 mmol/L CO2 31 22 - 32 mmol/L Anion Gap 10 7 - 15 mmol/L Glucose 310 (H) 70 - 120 mg/dL Albumin 3.8 3.8 - 5.0 g/dL AST 10 10 - 35 U/L Alkaline Phosphatase 81 35 - 130 U/L Bilirubin, Total 0.3 <=1.2 mg/dL Calcium 9.5 8.4 - 10.2 mg/dL Protein 7.0 6.0 - 8.3 g/dL ALT 10 10 - 35 U/L MAGNESIUM Result Value Ref Range Magnesium 1.3 (L) 1.5 - 2.6 mg/dL CBC Result Value Ref Range WBC 9.02 4.00 - 10.80 K/uL RBC 3.81 3.85 - 5.15 M/uL HGB 11.0 (L) 12.0 - 15.3 g/dL HCT 33.2 (L) 36.0 - 45.2 % MCV 87.1 81.5 - 97.5 fL MCH 28.9 27.0 - 34.0 pg MCHC 33.1 32.0 - 36.0 g/dL RDW 15.9 11.5 - 15.5 % PLT 246 140 - 400 K/uL MPV 9.5 6.6 - 11.1 fL DIFFERENTIAL, AUTOMATED Result Value Ref Range WBC 9.02 4.00 - 10.80 K/uL Neutrophils % 80.1 (H) 40.0 - 75.0 % Lymphocytes % 10.5 (L) 18.0 - 42.0 % Monocytes % 8.1 1.0 - 11.0 % Eosinophils % 0.7 0.0 - 6.0 % Basophils % 0.6 0.0 - 2.0 % Absolute Neutrophils 7.23 1.80 - 7.70 K/uL Absolute Lymphocytes 0.95 (L) 1.00 - 4.80 K/ul Absolute Monocytes 0.73 0.00 - 1.10 K/uL Absolute Eosinophils 0.06 0.00 - 0.70 K/uL Absolute Basophils 0.05 0.00 - 0.20 K/uL IMPRESSION/PLAN: 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 Reviewed with Dr. Harris: due to decreased CrCl will dose reduce Etoposide to 75 mg/m2 today and forall future treatment cycles. Will also add additional hydration with 1L NSS over two hours to Etoposide treatment on D2 and D3 of current treatment cycle. Prescription sent for patient to start magnesium oxide 400 mg daily. Encouraged to push oral fluids Planned for four total cycles. Planned for 30 total treatments or radiation therapy. Last scheduled 03/14/23. Congratulated patient on smoking cessation Patient having difficulty controlling blood sugars while on chemotherapy. Will send staff message to PCP to make aware. Offered MTM referral but patient declined at this time. RTC in three weeks with physician for chemo return DORON Chaudhry documented in this encounter Nursing Notes * Falguni Adams, REFRIGERATION MECHANIC HELPER - 02/20/2023 9:24 AM EST Patient identifed by name and birthdate Do you have any concerns about pain management for today's visit? Yes. Patient instructed to discuss pain concerns with provider during the visit today Living Will or Advance Directive for Health Care as noted on the problem list. [facility] is a way you can talk to your provider on line through e-mail. Would you like to sign up? I can activate it for you? ALREADY ACTIVE Filed Vitals: 02/20/23 0923 BP: 120/83 Pulse: 126 Resp: 16 Temp: 36.6 C (97.9 F) TempSrc: Tympanic SpO2: 94% Weight: 76.2 kg (167 lb 14.4 oz) Height: 1.575 m (5' 2") Patient [...] 11:30 AM EST Hem/Onc Treatment Hematology/Oncology Treatment, [place] 200 [facility] [place] [address] Veronica, Chair 3 Hem Onc Scenery 200 [facility] [place] [address] 02/22/2023 1:00 PM EST Hem/Onc Treatment Hematology/Oncology Treatment [place] 200 [facility] [place] [address] Veronica, Chair 7 Hem Onc Scenery 200 [facility] [place] [address] 03/14/2023 9:30 AM EST Laboratory Laboratory [facility] Veronica [place] [address] [place] [phone] Veronica, Lab Scenery 200 [facility] [place] [address] 03/14/2023 11:00 AM EST Office Visit [facility]ology[facility] [place] [address] [place] [address] Hernan Harris MD [address] [place] [address] 03/14/2023 11:30 AM EST Hem/Onc Treatment Hematology/Oncology Treatment, [place] 200 [facility] [place] [address] Veronica, Chair 4 Hem Onc Scenery [address] [place] [address] 03/15/2023 10:00 AM EST Hem/Onc Treatment Hematology/Oncology Treatment, [place] 200 [place] [address] Veronica, Chair 9 Hem Onc Scenery 200 [facility] [place], [place] [address] 03/16/2023 9:45 AM EST Hem/Onc Treatment Hematology/Oncology Treatment, [place] [address] [facility], [place] [address] Veronica, Chair 6 Hem Onc Scenery 200 [facility] [place], [place] [address] 07/10/2023 10:20 AM EDT Office Visit Pulmonary Medicine Yuni Stein [address] [place] [phone] Vinicius Irwin MD [address] [place] [address] Health Maintenance Due Date Last Done Comments [...] B-12 08/02/2022 08/02/2021, 01/18, 07/27/2018 COVID-19 Vaccine (2022- season) 2022 07/03/2020, 06/12/2020 HbA1c 12/09/2022 12/09/2021, [...] lung, unspecified site Encounter for antineoplastic chemotherapy Hypomagnesemia Disorders of magnesium metabolism Dehydration documented in this encounter Care Teams Field Agent Relationship Specialty Start Date End Date Adan Rangel MD [address] [place] [address] PCP - General 12/14/05 documented as of this encounter
--- OUTSIDE RECORDS SUMMARY | 2023-03-08 13:28 | External Medical Summary ---
Author Name Unknown Address Unknown Organization K09:[facility] [address] [place] [address] Laboratory Report Ordering Provider Test Date Status JOHANNE PAZ 02/20/2023 09:00:37 Final Observation Date Value Abnormality Reference (Units ) Status BUN 02/20/2023 09:00:37 21 Above high normal 6-20 (mg/dL) Final Creatinine 02/20/2023 09:00:37 1.3 Above high normal 0.5-1.0 (mg/dL) Final Glomerular filtration rate/1.73 sq M.predicted [Volume Rate/Area] in Serum, Plasma or Blood by Creatinine-based formula (CKD-EPI) 02/20/2023 09:00:37 46 Below low normal >=60 (mL/min) Final eGFR is calculated based on the CKD-EPI 2020 equation SODIUM 02/20/2023 09:00:37 137 135-146 (m mol/L) Final Potassium 02/20/2023 09:00:37 3.6 3.5-5.1 (m mol/L) Final Cl 02/20/2023 09:00:37 96 Below low normal 98- 107 (mmol/L) Final CO2 02/20/2023 09:00:37 31 22-32 (mmo l/L) Final Anion gap 02/20/2023 09:00:37 10 7-15 (mmol /L) Final Glucose 02/20/2023 09:00:37 310 Above high normal 70 -120 (mg/dL) Final Albumin 02/20/2023 09:00:37 3.8 3.8-5.0 (g /dL) Final AST (Aspartate aminotransferase) 02/20/2023 09:00:37 10 10-35 (U/L) Fin al Alk Phos 02/20/2023 09:00:37 81 35-130 (U/ L) Final Bilirubin, Total 02/20/2023 09:00:37 0.3 <=1 .2 (mg/dL) Final Calcium 02/20/2023 09:00:37 9.5 8.4-10.2 ( mg/dL) Final Protein 02/20/2023 09:00:37 7.0 6.0-8.3 (g /dL) Final ALT (Alanine aminotransferase) 02/20/2023 09:00:37 10 10-35 (U/L) Alex middleton Performing Location [facility] [address] [place] [address]
--- OUTSIDE RECORDS SUMMARY | 2023-03-08 13:28 | External Medical Summary | Summary of Care ---
Author Name Unknown Organization [facility] Address [address] [place] [address] Phone [phone] Care Team Providers Care Bar Useful Or Busser Name Role Phone Adan Rangel MD Primary Care Provider [phone]- [phone] Encounter Details Date Type Department Care Team (Late st Contact Info) Description 02/20/2023 Orders Only Hematology/Oncology [facility] [place] 200 [facility] [place] [address] Hernan Harris MD 200 [facility] [place] [address] Allergies Active Allergy Reactions Criticality Noted Date [...] mRNA, LNP-s, No Pre serve, 2-Dose Series (GTX Messaging) 07/03/2020,06/12/2020 Pneumococcal Polysaccharide PPV23 (Pneumovax) 11/11/2014 SEASONAL [...] 11:30 AM EST Hem/Onc Treatment Hematology/Oncology Treatment, [place] 200 [facility] [place] [address] Veronica, Chair 3 Hem Onc Scenery 200 [facility] [place] [address] 02/22/2023 1:00 PM EST Hem/Onc Treatment Hematology/Oncology Treatment, [place] 200 [place] [address] Veronica, Chair 7 Hem Onc Scenery [address] [place] [address] 03/14/2023 9:30 AM EST Laboratory Laboratory Scenery Veronica [place] [address] [place] [phone] [place], Lab Scenery [address] [place] [address] 03/14/2023 11:00 AM EST Office Visit Hematology/Oncology [address] [place] [address] [place], [place] [address] Hernan Harris MD [address] [place], [place] [address] 03/14/2023 11:30 AM EST Hem/Onc Treatment Hematology/Oncology Treatment, [place] 200 [facility] [place] [address] Veronica, Chair 4 Hem Onc Scenery 200 [facility] [place], [place] [address] 03/15/2023 10:00 AM EST Hem/Onc Treatment Hematology/Oncology Treatment, [place] 200 [facility] [place] [address] Veronica, Chair 9 Hem Onc Scenery [address] [place], [place] [address] 03/16/2023 9:45 AM EST Hem/Onc Treatment Hematology/Oncology Treatment, [address] [place] [address] Veronica, Chair 6 Hem Onc Scenery [address] [place] [address] 07/10/2023 10:20 AM EDT Office Visit Pulmonary Medicine Yuni Stein [address] [place] [phone] Vinicius Irwin MD [address] [place] [address] Health Maintenance Due Date Last Done Comments [...] filedocumented as of this encounter Care Teams Bar Useful Or Busser Relationship Specialty Start Date End Date Adan Rangel MD [address] [place] [address] PCP - General 12/14/05 documented as of this encounter
--- OUTSIDE RECORDS SUMMARY | 2023-03-08 13:28 | External Medical Summary | Summary of Care ---
Author Name Unknown Organization [facility] Address [address] [place] [address] Phone [phone] Care Team Providers Care Harm Reduction Worker Name Role Phone Adan Rangel MD Primary Care Provider +1- [phone] Reason for Visit * Reason Comments Treatment * Episode Based Medications (Routine) - Authorized Specialty Diagnoses / Procedures Referred By Alvaro bennett Referred To Contact Diagnoses Small cell lung cancer (HCC) Encounter for antineoplastic chemotherapy Procedures [place] FOSAPREPITANT INJECTION [place] CISPLATIN 10 MG INJECTION [place] ETOPOSIDE 10 MG INJ Hernan Harris MD [address] [place] [address] Hem/Onc Scenery [employer] [address] [place] [address] Referral ID Status Reason Start Date Expiration Date V isits Requested Visits Authorized [id number] Authorized 12/29/2022 12/30/2023 999 [id number] Encounter Details Date Type Department Care Team (Latest Contact Info) Description 02/22/2023 1:00 PM EST Hem/Onc Treatment Hematology/Oncolog y Treatment, [place] [address] [place] [address] Veronica Chair 7 Hem Onc Scenery [address] [place] [address] Small cell lung cancer (HCC)*; Encounter for antineoplastic chemotherapy Allergies Active Allergy Reactions Criticality Noted Date Comments Cromolyn Edema face/lips/tongue High 11/21/2012 Facial numbness and swelling documented as of this encounter (statuses as of 02/22/2023) Medications Medication Sig Dispensed Refills Start Date [...] as of this encounter (statuses as of 02/22/2023) Active Problems Problem Noted Date Diagnosed Date Dehydration 02/13/2023 Small cell lung cancer 12/28/2022 Encounter for antineoplastic chemotherapy 2022 Prediabetes 04/02/2018 Overview: Per Prediabetes protocol #1 HTN, goal below 140/90 08/23/2013 Allergic rhinitis 01/28/2008 Tobacco use disorder 01/28/2008 documented as of this encounter (statuses as of 02/22/2023) Resolved Problems Problem Noted Date Diagnosed Date Resolved Date HTN, goal below 130/80 02/16/201208/23 Need for influenza vaccination 01/28/2008 01/03/2017 Acute pharyngitis 01/28/2008 07/31/2008 Overview: Resolved per Benign Acute Dxs Protocol documented as of this encounter (statuses as of 02/22/2023) Immunizations Name Administration Dates Next Due COVID-19 [...] Sign Reading Time Taken Comments Blood Pressure 123/77 02/22/2023 12:46 PM EST Pulse 84 02/22/2023 12:46 PM EST Temperature 36.3 C (97.3 F) 02/22/2023 12:[address] Respiratory Rate 18 02/22/2023 12:46 PM EST Oxygen Saturation 98% 02/22/2023 12:46 PM EST Inhaled Oxygen Concentration - - Weight - - Height - - Body Mass Index - - documented in this encounter Nursing Notes * Renuka Welch RN - 02/22/2023 1:24 PM EST Safety and Risk for Injury Patient will remain free from injury. Ensure appropriate safety devices are available. Provide and maintain safe environment. Functional status at today's visit: Fully active, able to carry on all pre-disease performance without restriction The drug name, dose, infusion volume, rate and route of administration, expiration date and time, appearance and physical integrity of the drug and rate set on the pump and sequencing of drug administration (as applicable) were verified by me and second sign-in RN. Patient was assessed for symptoms or adverse side effects during treatment. Goals: Patient here for day 3 Etoposide with 1L NSS. Patient reports fatigue and nausea. Patient took own supply of zofran prior to apt and her nausea is subsiding. Possible barriers to meeting goals: IV Pole and central line. Stability of the patient: Moderately stable - low risk of patient condition declining or worsening Summary regarding today's goals: Met: Patient received treatment as planned without any issues. documented in this encounter Plan of Treatment Upcoming Encounters Date Type Department Care Team (Late st Contact Info) Description 03/14/2023 9:30 AM EST Laboratory Laboratory [facility] Aurelio Martin [address] [place] [phone] [employer], Lab [facility] [address] [place] [address] [address] 03/14/2023 11:00 AM EST Office Visit Hematology/Oncology [facility] Aurelio Martin [address] [place] [address] Hernan Harris MD [address] [place] [address] 03/14/2023 11:30 AM EST Hem/Onc Treatment Hematology/Oncology Treatment, [address] [place] [address] Veronica, Chair 4 Hem Onc Scenery [address] [place] [address] 03/15/2023 10:00 AM EST Hem/Onc Treatment Hematology/Oncology Treatment, [address] [place] [address] Veronica, Chair 9 Hem Onc Scenery [address] [place] [address] 03/16/2023 9:45 AM EST Hem/Onc Treatment Hematology/Oncology Treatment, [address] [place] [address] Veronica, Chair 6 Hem Onc Scenery [address] [place], [place] [address] 07/10/2023 10:20 AM EDT Office Visit Pulmonary Medicine Yuni Stein [address] [place] [address] [phone] Vinicius Irwin MD [address] [place] [address] [address] Health Maintenance Due Date Last Done Comments [...] ONCE PRN Other, Hypersensitivity Reaction, Starting on 02/22/23 at 1247, Until Tabitha 02/23/23 at 1246, For 24 hours EPINEPHrine 1 MG/ML inj 0.3 mg 0.3 mg, Intramuscular, ONCE PRN Other, Hypersensitivity Reaction or Anaphylaxis, Starting on 02/22/23 at 1247, Until Tabitha 02/23/23 at 1246, For 24 hours hEParin 100 UNIT/ML Lock Flush inj 500 Units 500 Units (5 mL), IV Lock, PRN Other, IV Flush, Starting on Mon02/22/23 at 1247, Until Mon02/23/23 at 1246, For 24 hours, Do not flush if lock, PICC, or central line not in place; IV infusing or unable to flush. Hydrocortisone Sod Suc (PF) (Solu-Cortef) inj 100 mg 100 mg, IV Push, ONCE PRN Other, Hypersensitivity Reaction, Starting on Mon02/22/23 at 1247, Until Mon02/23/23 at 1246, For 24 hours NSS infusion Intravenous, at 50 mL/hr, PRN, Starting on Mon02/22/23 at 1400, Until Discontinued, KVO Start Infusion 02/22/2023 12:55 PM EST 50 mL/hr oxygen GAS Inhalation, OXYGEN, First dose on Mon02/22/23 at 1600, Until Discontinued, Device/Managed by: Low [...] Push, PRN Other, IV Flush, Starting on Mon02/22/23 at 1247, Until Mon02/23/23 at 1246, For 24 hours, Do not flush if lock, PICC, or central line not in place; IV infusing or unable to flush. Inactive Administered Medications - up to 3 most recent administrations Medication Order MAR Action Action Date Dose Rate Site etoposide (VEPESID) 140 mg in NSS 500 mL infusion 140 mg (rounded from 139.5 mg = 75 mg/m2 1.86 m2 Treatment Plan BSA from Recorded weight), IV Piggyback, ONCE, 1 dose, On Mon02/22/23 at 1430, Administer over 60 Minutes, Recommended concentration is less than or equal to 0.4 mg/mL. If concentration is greater than 0.4 mg/mL recommend to administer through 0.22 micron low protein binding filter. Start Infusion 02/22/2023 1:09 PM EST 140 mg 500 mL/hr NSS infusion FOR HYDRATION Intravenous, at 500 mL/hr Administer over 2 Hours, ONCE, 1 dose, On Mon02/22/23 at 1330 Start Infusion 02/22/2023 12:55 PM EST 1,000 mL 500 mL/hr documented in this encounter Care Teams Harm Reduction Worker Relationship Specialty Start Date End Date Adan Rangel MD [address] [place] [address] PCP - General 12/14/05 documented as of this encounter
--- OUTSIDE RECORDS SUMMARY | 2023-03-08 13:28 | External Medical Summary | Summary of Care ---
Author Name Unknown Organization [facility] Address [address] [place] [address] Phone [phone] Care Team Providers Care Field Test Engineer Name Role Phone Adan Rangel MD Primary Care Provider +1- [phone] Reason for Visit * Reason Comments Chemotherapy HOLD C3D1 Etoposide/ Cisplatin IV Therapy Hyydration/mag Encounter Details Date Type Department Care Team (Latest Contact Info) Description 02/13/2023 10:00 AM EST Hem/Onc Treatment Hematology/Oncology Treatment, [address] [address] Veronica, Chair 4 Hem Onc Scene [address] [place] [address] Dehydration*; Small cell lung cancer (HCC) Allergies Active [...] 1 03/16/2022 Active Benzonatate 100 MG Oral CapsuleIndications:C hronic [...] mRNA, LNP-s, No Pre serve, 2-Dose Series (Umami) 07/03/2020,06/12/2020 Pneumococcal Polysaccharide PPV23 (Pneumovax) 11/11/2014 SEASONAL [...] as of this encounter Nursing Notes * Silvia Ross RN - 02/13/2023 12:48 PM EST Goals: Patient will remain free from injury. Possible barriers to meeting goals: ambulation with IV pole Stability of the patient: Moderately stable - low risk of patient condition declining or worsening Summary regarding today's goals: Met: Pt remained free of injury today Patient tolerated treatment well and was discharged in stable condition. No coverage needed today. * Silvia Ross RN - 02/13/2023 10:58 AM EST Chair 1 Pt was seen by Pavithra SAL today, see office notes. Will hold chemo today, IV fluids/mag only. IV started in the left hand without difficulty, good blood return noted, flushed with NSS, fluids infusing. Safety and Risk for Injury Patient will remain free from injury. Ensure appropriate safety devices are available. Provide and maintain safe environment. documented in this encounter Plan of Treatment Upcoming Encounters Date Type Department Care Team (Late st Contact Info) Description 02/20/2023 9:10 AM EST Laboratory Laboratory [facility] [address] [facility] [place] [phone] Veronica Lab [address] [facility] [place] [address] 02/20/2023 9:30 AM EST Office Visit Hematology/Oncology [facility] [address] [place] [address] Pavithra Sumner CRNP [address] [facility] [place] [address] 02/20/2023 10:00 AM EST Hem/Onc Treatment Hematology/Oncology Treatment, [address], [place] [address] 02/21/2023 11:30 AM EST Hem/Onc Treatment Hematology/Oncology Treatment, [place] 200 [facility] [place] [address] Veronica, Chair 3 Hem Onc Scenery [address] [place], [place] [address] 02/22/2023 1:00 PM EST Hem/Onc Treatment Hematology/Oncology Treatment, [place] 200 [facility], [place] [address] Veronica, Chair 7 Hem Onc Scenery [address] [place], [place] [address] 03/06/2023 9:00 AM EST Laboratory Laboratory [facility] [place] [address] [place], [place] [phone] Veronica, Lab Scenery [address] [place], [place] [address] 03/06/2023 9:30 AM EST Office Visit Hematology/Oncology [facility] [place] [address] [place], [place] [address] Hernan Harris MD [address] [place], [place] [address] 03/06/2023 10:00 AM EST Hem/Onc Treatment Hematology/Oncology Treatment, [place] 200 [facility], [place] [address] 03/07/2023 9:30 AM EST Hem/Onc Treatment Hematology/Oncology Treatment, [place] [address] [facility] [place] [address] Veronica, Chair 8 Hem Onc Scenery [address] [place] [address] 03/08/2023 9:30 AM EST Hem/Onc Treatment Hematology/Oncology Treatment, [place] [address] [facility] [place] [address] Veronica, Chair 6 Hem Onc Scenery [address] [place] [address] 07/10/2023 10:20 AM EDT Office Visit Pulmonary Medicine Yuni Stein [address] [place] [address] [phone] Vinicius Irwin MD [address] [place] [address] [address] Health Maintenance Due Date Last Done Comments [...] Tdap) 02/20/2023 02/20/2013, 02/02/2006 GFR 02/14/2024 02/13/2023, 1108/2022, 12/30/2022, Additional history exists Albumin/Creatinine Ratio 08/02/2024 [...] as of this encounter Visit Diagnoses Diagnosis Dehydration- Primary Small cell lung cancer (HCC) Malignant neoplasm of bronchus and lung, unspecified site documented in this encounter Administered Medications Active Administered Medications - up to 3 most recent administrations Medication Order MAR Action Action Date Dose Rate Site hEParin 100 UNIT/ML Lock Flush inj 500 Units 500 Units (5 mL), IV Lock, PRN Other, IV Flush, Starting on Mon02/13/23 at 1130, Until Mon02/14/23 at 1129, For 24 hours, Do not flush if lock, PICC, or central line not in place; IV infusing or unable to flush. sodium chloride 0.9 % flush central line 10 mL 10 mL, IV Push, PRN Other, IV Flush, Starting on Mon02/13/23 at 1130, Until Mon02/14/23 at 1129, For 24 hours, Do not flush if lock, PICC, or central line not in place; IV infusing or unable to flush. Inactive Administered Medications - up to 3 most recent administrations Medication Order MAR Action Action Date Dose Rate Site dexamethasone sod phosphate PF (Decadron) 10 MG/ML inj 8 mg 8 mg, IV Push, ONCE, On Mon02/13/23 at 1215, For 1 dose, PROTECT FROM LIGHT Given 02/13/2023 11:37 AM EST 8 mg magnesium sulfate 1 g in d5w 100mL LOCKED DOSE 1 g, IV Piggyback, ONCE, 1 dose, On Mon02/13/23 at 1245, Administer over 120 Minutes Start Infusion 02/13/2023 10:40 AM EST 1 g 50 mL/hr NSS infusion FOR HYDRATION Intravenous, at 500 mL/hr Administer over 2 Hours, ONCE, 1 dose, On Mon02/13/23 at 1245 Start Infusion 02/13/2023 10:40 AM EST 1,000 mL 500 mL/hr ondansetron (Zofran) inj 8 mg 8 mg, IV Push, ONCE, On 02/13/23 at 1215, For 1 dose Given 02/13/2023 11:36 AM EST 8 mg documented in this encounter Care Teams Field Test Engineer Relationship Specialty Start Date End Date Adan Rangel MD [address] [facility] [address] PCP - General 12/14/05 documented as of this encounter
--- OUTSIDE RECORDS SUMMARY | 2023-03-08 13:28 | External Medical Summary ---
Author Name Unknown Address Unknown Organization [id number] [place] [address] Laboratory Report Ordering Provider Test Date Status JOHANNE PAZ 02/20/2023 09:00:37 Final Observation Date Value Abnormality Reference (Units ) Status WBC, Total 02/20/2023 09:00:37 9.02 4.00-10.8 0 (K/uL) Final RBC 02/20/2023 09:00:37 3.81 3.85-5.15 (M/uL) Final Hemoglobin 02/20/2023 09:00:37 11.0 Below low normal 12 .0-15.3 (g/dL) Final HCT 02/20/2023 09:00:37 33.2 Below low normal 36. 0-45.2 (%) Final MCV 02/20/2023 09:00:37 87.1 81.5-97.5 (fL) Final MCH 02/20/2023 09:00:37 28.9 27.0-34.0 (pg) Final MCHC 02/20/2023 09:00:37 33.1 32.0-36.0 (g/dL) Final RDW 02/20/2023 09:00:37 15.9 11.5-15.5 (%) Final Platelets 02/20/2023 09:00:37 246 140-400 (K /uL) Final MPV 02/20/2023 09:00:37 9.5 6.6-11.1 ( fL) Final Performing Location [facility] [place] [address]
--- OUTSIDE RECORDS SUMMARY | 2023-03-08 13:28 | External Medical Summary ---
Author Name Unknown Address Unknown Organization [facility] [place] [address] Laboratory Report Ordering Provider Test Date Status JOHANNE PAZ 02/13/2023 08:34:51 Final Observation Date Value Abnormality Reference (Units ) Status Magnesium 02/13/2023 08:34:51 1.4 Below low normal 1.5 -2.6 (mg/dL) Final Performing Location [facility] [place] [address]
--- OUTSIDE RECORDS SUMMARY | 2023-03-08 13:28 | External Medical Summary ---
Author Name Unknown Address Unknown Organization [facility] [place] [address] Laboratory Report Ordering Provider Test Date Status JOHANNE PAZ 02/13/2023 08:34:51 Final Observation Date Value Abnormality Reference (Units ) Status SYNC LEUKOCYTES IN BLOOD BY AUTOMATED COUNT 02/13/2023 08:34:51 14.45 Above high normal 4.00-10.80 (K/uL) Final Neutrophils/100 leukocytes in Blood by Manual count 02/13/2023 08:34:51 89.0 Above high normal 40.0-75.0 (%) Final Lymphocytes/100 leukocytes in Blood by Manual count 02/13/2023 08:34:51 8.0 Below low normal 18.0-42.0 (%) Final Monocytes/100 leukocytes in Blood by Manual count 02/13/2023 08:34:51 1.0 1.0-11.0 (%) Final Metamyelocytes/100 leukocytes in Blood by Manual count 02/13/2023 08:34:51 2.0 Above high normal <=0.0 (%) Final Neutrophils [#/volume] in Blood by Manual count 02/13/2023 08:34:51 12.86 Above high normal 1.80-7.70 (K/uL) Final Lymphocytes [#/volume] in Blood by Manual count 02/13/2023 08:34:51 1.16 1.00-4.80 (K/uL) Final Monocytes [#/volume] in Blood by Manual count 02/13/2023 08:34:51 0.14 0.00-1.10 (K/uL) Final Metamyelocytes [#/volume] in Blood by Manual count 02/13/2023 08:34:51 0.29 Above high normal <=0.00 (K/uL) Final Nucleated erythrocytes/100 leukocytes [Ratio] in Blood by Automated count 02/13/2023 08:34:51 Final Performing Location [facility] [address] [place] [address]
--- OUTSIDE RECORDS SUMMARY | 2023-03-08 13:28 | External Medical Summary | Summary of Care ---
Author Name Unknown Organization [facility] Address [address] [place] [address] Phone [phone] Care Team Providers Care Evp Marketing Name Role Phone Adan Rangel MD Primary Care Provider +1- [phone] Encounter Details Date Type Department Care Team (Late st Contact Info) Description 02/20/2023 Orders Only Hematology/Oncology [facility] [place] [address] [facility] [place] [address] Hernan Harris MD 200 [facility] [place] [address] Allergies Active Allergy Reactions Criticality Noted Date [...] mRNA, LNP-s, No Pre serve, 2-Dose Series (Compliance 360) 07/03/2020,06/12/2020 Pneumococcal Polysaccharide PPV23 (Pneumovax) 11/11/2014 SEASONAL [...] 11:30 AM EST Hem/Onc Treatment Hematology/Oncology Treatment, [place] [address] [facility] [place] [address] Veronica, Chair 3 Hem Onc Scenery 200 [facility] [place] [address] 02/22/2023 1:00 PM EST Hem/Onc Treatment Hematology/Oncology Treatment, [place] [address] [facility] [address] Veronica, Chair 7 Hem Onc Scenery [address] [place] [address] 03/14/2023 9:30 AM EST Laboratory Laboratory Scenery [place] [address] [place] [phone] [place], Lab Scenery [address] [place] [address] 03/14/2023 11:00 AM EST Office Visit Hematology/Oncology [facility] [place] [address] [place], [place] [address] Hernan Harris MD [address] [place], [place] [address] 03/14/2023 11:30 AM EST Hem/Onc Treatment Hematology/Oncology Treatment, [place] 200 [place] [address] Veronica, Chair 4 Hem Onc Scenery 200 [facility] [place], [place] [address] 03/15/2023 10:00 AM EST Hem/Onc Treatment Hematology/Oncology Treatment, [place] [address] [place] [address] Veronica, Chair 9 Hem Onc Scenery [address] [place], [place] [address] 03/16/2023 9:45 AM EST Hem/Onc Treatment Hematology/Oncology Treatment, [address] [place] [address] Veronica, Chair 6 Hem Onc Scenery [address] [place] [address] 07/10/2023 10:20 AM EDT Office Visit Pulmonary Medicine Yuni Stein [address] [place] [address] [phone] Vinicius Irwin MD [address] [place] [address] [address] Health Maintenance Due Date Last Done Comments [...] filedocumented as of this encounter Care Teams Evp Marketing Relationship Specialty Start Date End Date Adan Rangel MD [address] [place] [address] PCP - General 12/14/05 documented as of this encounter
--- OUTSIDE RECORDS SUMMARY | 2023-03-08 13:28 | External Medical Summary ---
Author Name Unknown Address Unknown Organization [facility] [place] [address] Laboratory Report Ordering Provider Test Date Status JOHANNE PAZ 02/13/2023 08:34:51 Final Observation Date Value Abnormality Reference (Units ) Status WBC, Total 02/13/2023 08:34:51 14.45 Above high normal 4 .00-10.80 (K/uL) Final RBC 02/13/2023 08:34:51 3.64 3.85-5.15 (M/uL) Final Hemoglobin 02/13/2023 08:34:51 10.6 Below low normal 12 .0-15.3 (g/dL) Final HCT 02/13/2023 08:34:51 31.7 Below low normal 36. 0-45.2 (%) Final MCV 02/13/2023 08:34:51 87.1 81.5-97.5 (fL) Final MCH 02/13/2023 08:34:51 29.1 27.0-34.0 (pg) Final MCHC 02/13/2023 08:34:51 33.4 32.0-36.0 (g/dL) Final RDW 02/13/2023 08:34:51 14.4 11.5-15.5 (%) Final Platelets 02/13/2023 08:34:51 245 140-400 (K /uL) Final MPV 02/13/2023 08:34:51 10.6 6.6-11.1 ( fL) Final Performing Location [facility] [place] [address]
--- OUTSIDE RECORDS SUMMARY | 2023-03-08 13:28 | External Medical Summary | Summary of Care ---
Author Name Unknown Organization [facility] Address [address] [place] [address] Phone [phone] Care Team Providers Care Operations/Dispatch Name Role Phone Adan Rangel MD Primary Care Provider +1- [phone] Reason for Visit * Reason Comments Outpatient Testing Encounter Details Date Type Department Care Team (Late st Contact Info) Description 02/20/2023 9:10 AM EST Laboratory Laboratory [facility] [place] [address] [place] [phone] [place], Lab Scenery [address] [place] [address] Small cell lung cancer (HCC) Allergies Active [...] Care Team (Latest Contact Info) Description 02/20/2023 9:30 AM EST Office Visit Hematology/Oncology [facility] Ver[place] [address] [place] [address] Pavithra Sumner, TELECOMMUNICATION SYSTEMS DESIGNER 400 [facility] [place] [address] PENDING VISIT DRAFT 02/20/2023 10:00 AM EST Hem/Onc Treatment Hematology[address]cology [address] [address] Arrived 02/21/2023 11:30 AM EST Hem/Onc Treatment Hematology/[address]cology [address], [address] [address] Veronica, Chair 3 Hem Onc [address] [place] [address] 02/22/2023 1:00 PM EST Hem/Onc Treatment Hematology/Oncology Treatment, [place] 200 [place] [address] Veronica, Chair 7 Hem Onc Scenery 200 [facility] [place], [place] [address] 03/06/2023 9:00 AM EST Laboratory Laboratory [facility] 200 [facility] [place], [place] [id number] [place], Lab [facility] 200 [facility] [place], [place] [address] 03/06/2023 9:30 AM EST Office Visit Hematology/Oncology [facility] 200 [facility] [place], [place] [address] Hernan Harris MD 200 [facility], [place] [address] 03/06/2023 10:00 AM EST Hem/Onc Treatment Hematology/Oncology [address], [place] [address] 03/07/2023 9:30 AM EST Hem/Onc Treatment Hematology/Oncology Treatment, [place] 200 [facility], [place] [address] Veronica, Chair 8 Hem Onc [facility] [address] [place] [address] [place], [place] [address] 03/08/2023 9:30 AM EST Hem/Onc Treatment Hematology/Oncology [address], [place] [address] Veronica, Chair 6 Hem Onc Scenery 200 [place] [address] 07/10/2023 10:20 AM EDT Office Visit Pulmonary Medicine Yuni Stein [address] [place] [phone] Vinicius Irwin MD [address] [place] [address] Pending Results Name Type Priority Associated Diagnoses Date /Time COMPREHENSIVE METABOLIC PANEL Lab STAT Small cell lung cancer (HCC) 02/20/2023 9:00 AM EST MAGNESIUM Lab STAT Small cell lung cancer (HCC) 02/20/2023 9:00 AM EST Health Maintenance Due Date Last [...] 1108/2022, 12/30/2022, Additional history exists Albumin/Creatinine Ratio 08/02/20242 022, 01/31/2020, 07/27/2018 Lipid Panel 12/09/2026 12/09/2021, [...] Not on filedocumented as of this encounter Procedures Procedure Name Priority Date/Time Associated Diagnosis Comments DIFFERENTIAL, AUTOMATED STAT 02/20/2023 9:00 AM EST Small cell lung cancer (HCC) CBC STAT 02/20/2023 9:00 AM EST Small cell lung cancer (HCC) CBC STAT 02/20/2023 9:00 AM EST Small cell lung cancer (HCC) documented in this encounter Results * (ABNORMAL) DIFFERENTIAL, AUTOMATED (02/20/2023 9:00 AM EST) WBC 9.02 4.00 - 10.80 K/uL 02/20/2023 9:06 AM EST [facility]02 Neutrophils % 80.1(H) 40.0 - 75.0 % 02/20/2023 9:06 AM EST [facility] 56-02 Lymphocytes % 10.5(L) 18.0 - 42.0 % 02/20/2023 9:06 AM EST [facility] 56-02 Monocytes % 8.1 1.0 - 11.0 % 02/20/2023 9:06 AM EST [facility] 56-02 Eosinophils % 0.7 0.0 - 6.0 % 02/20/2023 9:06 AM EST [facility] 56-02 Basophils % 0.6 0.0 - 2.0 % 02/20/2023 9:06 AM EST [facility] 56-02 Absolute Neutrophils 7.23 1.80 - 7.70 K/uL 02/20/2023 9:06 AM EST [facility] 56-02 Absolute Lymphocytes 0.95(L) 1.00 - 4.80 K/ul 02/20/2023 9:06 AM EST [facility] 56-02 Absolute Monocytes 0.73 0.00 - 1.10 K/uL 02/20/2023 9:06 AM EST [facility] 56-02 Absolute Eosinophils 0.06 0.00 - 0.70 K/uL 02/20/2023 9:06 AM EST [facility] 56-02 Absolute Basophils 0.05 0.00 - 0.20 K/uL 02/20/2023 9:06 AM [facility] 56 Blood Venous blood specimen / Unknown Venipuncture / Unknown 02/20/2023 9:00 AM EST 02/20/2023 9:00 AM EST Hernan Harris MD LAB BLOOD [place] [address] [place], [place] [phone] * (ABNORMAL) CBC (02/20/2023 9:00 AM EST) WBC 9.02 4.00 - 10.80 K/uL 02/20/2023 9:[address] RBC 3.81 3.85 - 5.15 M/uL 02/20/2023 9:06 AM [place] [address] HGB 11.0(L) 12.0 - 15.3 g/dL 02/20/2023 9:06 AM [place] [address] HCT 33.2(L) 36.0 - 45.2 % 02/20/2023 9:[address] MCV 87.1 81.5 - 97.5 fL 02/20/2023 9:[address] MCH 28.9 27.0 - 34.0 pg 02/20/2023 9:06 AM [place] [address] MCHC 33.1 32.0 - 36.0 g/dL 02/20/2023 9:[address] RDW 15.9 11.5 - 15.5 % 02/20/2023 9:[address] PLT 246 140 - 400 K/uL 02/20/2023 9:[address] MPV 9.5 6.6 - 11.1 fL 02/20/2023 9:06 AM [facility] Blood Venous blood specimen / Unknown Venipuncture / Unknown 02/20/2023 9:00 AM EST 02/20/2023 9:00 AM EST Hernan Harris MD LAB BLOOD [facility] [place] 56-02 [address] [place] [address] documented in this encounter Visit Diagnoses Diagnosis Small cell lung cancer (HCC) Malignant neoplasm of bronchus and lung, unspecified site documented in this encounter Care Teams Operations/Dispatch Relationship Specialty Start Date End Date Adan Rangel MD [address] [place] [address] PCP - General 12/14/05 documented as of this encounter
--- OUTSIDE RECORDS SUMMARY | 2023-03-08 13:29 | External Medical Summary ---
Author Name Unknown Address Unknown Organization K09:[facility] [place] [address] Laboratory Report Ordering Provider Test Date Status JOHANNE PAZ 01/23/2023 08:59:42 Final Observation Date Value Abnormality Reference (Units ) Status WBC, Total 01/23/2023 08:59:42 11.05 Above high normal 4 .00-10.80 (K/uL) Final RBC 01/23/2023 08:59:42 4.84 3.85-5.15 (M/uL) Final Hemoglobin 01/23/2023 08:59:42 13.9 12.0-15.3 (g/dL) Final HCT 01/23/2023 08:59:42 40.8 36.0-45.2 (%) Final MCV 01/23/2023 08:59:42 84.3 81.5-97.5 (fL) Final MCH 01/23/2023 08:59:42 28.7 27.0-34.0 (pg) Final MCHC 01/23/2023 08:59:42 34.1 32.0-36.0 (g/dL) Final RDW 01/23/2023 08:59:42 14.4 11.5-15.5 (%) Final Platelets 01/23/2023 08:59:42 267 140-400 (K /uL) Final MPV 01/23/2023 08:59:42 9.8 6.6-11.1 ( fL) Final Performing Location [facility] [place] [address]
--- OUTSIDE RECORDS SUMMARY | 2023-03-08 13:29 | External Medical Summary | Summary of Care ---
Author Name Unknown Organization [facility] Address [address] [place] [address] Phone [phone] Care Team Providers Care Manager Online Name Role Phone Adan Rangel MD Primary Care Provider +1- [phone] Reason for Visit * Reason Comments Chemotherapy C2D2 Etoposide * Episode Based Medications (Routine) - Authorized Specialty Diagnoses / Procedures Referred By Alvaro bennett Referred To Contact Diagnoses Small cell lung cancer (HCC) Encounter for antineoplastic chemotherapy Procedures DC FOSAPREPITANT INJECTION DC CISPLATIN 10 MG INJECTION DC ETOPOSIDE 10 MG INJ Hernan Harris MD [address] [place] [address] Hem/Onc [facility] 200 [facility] [place] [address] Referral ID Status Reason Start Date Expiration Date V isits Requested Visits Authorized [id number] Authorized 12/29/2022 12/30/2023 999 [id number] Encounter Details Date Type Department Care Team (Latest Contact Info) Description 01/24/2023 9:00 AM EST Hem/Onc Treatment Hematology/Oncolog y Treatment, [place] [address] [place] [address] [place], Chair 2 Hem Onc Scenery [address] [place] [address] Small cell lung cancer (HCC)*; Encounter for antineoplastic chemotherapy Allergies Active Allergy Reactions Criticality Noted Date Comments Cromolyn Edema face/lips/tongue High 11/21/2012 Facial numbness and swelling documented as of this encounter (statuses as of 01/24/2023) Medications Medication Sig Dispensed Refills Start Date [...] as of this encounter (statuses as of 01/24/2023) Active Problems Problem Noted Date Diagnosed Date Small cell lung cancer 12/28/2022 Encounter for antineoplastic chemotherapy 2022 Prediabetes 04/02/2018 Overview: Per Prediabetes protocol #1 HTN, goal below 140/90 08/23/2013 Allergic rhinitis 01/28/2008 Tobacco use disorder 01/28/2008 documented as of this encounter (statuses as of 01/24/2023) Resolved Problems Problem Noted Date Diagnosed Date Resolved Date HTN, goal below 130/80 02/16/201208/23 Need for influenza vaccination 01/28/2008 01/03/2017 Acute pharyngitis 01/28/2008 07/31/2008 Overview: Resolved per Benign Acute Dxs Protocol documented as of this encounter (statuses as of 01/24/2023) Immunizations Name Administration Dates Next Due COVID-19 [...] Sign Reading Time Taken Comments Blood Pressure 148/80 01/24/2023 9:55 AM EST Pulse 98 01/24/2023 9:55 AM EST Temperature 36.2 C (97.2 F) 01/24/2023 9:55 AM ES T Respiratory Rate 18 01/24/2023 9:55 AM EST Oxygen Saturation 96% 01/24/2023 9:55 AM EST Inhaled Oxygen Concentration - - Weight - - Height - - Body Mass Index - - documented in this encounter Nursing Notes * Daniela Appiah RN - 01/24/2023 10:30 AM EST Chair 10 Pt here for C2D2 Etoposide. Reports she had a hard time sleeping last night because she was up frequently overnight needing to urinate. Reports mild nausea this AM. Took Zofran at 0300 and Compazine at 0600 with positive effect. Reports that SOB and cough are much improved since first treatment. Safety and Risk for Injury Patient will remain free from injury. Ensure appropriate safety devices are available. Provide and maintain safe environment. Goals: Patient will remain free from injury. Possible barriers to meeting goals: ambulation with IV pole Stability of the patient: Moderately stable - low risk of patient condition declining or worsening Summary regarding today's goals: Met: patient without injury during treatment today. Functional status at today's visit: Restricted in [...] symptoms or adverse side effects during treatment. Pt tolerated etoposide infusion well. No complaints. Discharged in stable condition. documented in this encounter Plan of Treatment Upcoming Encounters Date Type Department Care Team (Late st Contact Info) Description 01/25/2023 9:30 AM EST Hem/Onc Treatment [facility], [place] [facility] [address] 02/13/2023 9:00 AM EST Laboratory Laboratory [facility] [address] [place] [phone] [place], Lab [address] [place] [address] 02/13/2023 9:30 AM EST Office Visit Hematology/Oncology [address] [place] [address] Pavithra Sumner CRNP [address] [place] [address] [place] [phone] 02/13/2023 10:00 AM EST Hem/Onc Treatment Hematology/Oncology Treatment, [place] 200 [place] [address] Veronica, Chair 4 Hem Onc Scenery [address] [place], [place] [address] 02/14/2023 9:30 AM EST Hem/Onc Treatment Hematology/Oncology Treatment, [place] 200 [place] [address] Veronica, Chair 6 Hem Onc Scenery [address] [place] [address] 02/15/2023 9:30 AM EST Hem/Onc Treatment Hematology/Oncology Treatment, [place] 200 [place] [address] Veronica, Chair 8 Hem Onc Scenery [address] [facility] [place], [place] [address] 03/06/2023 9:00 AM EST Laboratory [facility] [place] [address] [place], [place] [phone] [place], Lab Scenery [address] [place], [place] [address] 03/06/2023 9:30 AM EST Office Visit Hematology/Oncology [facility] [place] [address] [place], [place] [address] Hernan Harris MD [address] [place], [place] [address] 03/06/2023 10:00 AM EST Hem/Onc Treatment Hematology/Oncology Treatment, [address], [place] [address] 03/07/2023 9:30 AM EST Hem/Onc Treatment Hematology/Oncology Treatment, [place] 200 [place] [address] Veronica, Chair 8 Hem Onc Scenery [address] [place], [place] [address] 03/08/2023 9:30 AM EST Hem/Onc Treatment Hematology/Oncology Treatment, [place] [address] [place] [address] Veronica, Chair 6 Hem Onc Scenery [address] [place] [address] 07/10/2023 10:20 AM EDT Office Visit Pulmonary Medicine Yuni Stein [address] [place] [phone] Vinicius Irwin MD [address] [place] [address] Health Maintenance Due Date Last Done Comments [...] chemotherapy documented in this encounter Administered Medications Inactive Administered Medications - up to 3 most recent administrations Medication Order MAR Action Action Date Dose Rate Site etoposide (VEPESID) 190 mg in NSS 500 mL infusion 190 mg (rounded from 186 mg = 100 mg/m2 1.86 m2 Treatment Plan BSA from Recorded weight), IV Piggyback, ONCE, 1 dose, On Mon01/24/23 at 1130, Administer over 60 Minutes, Recommended concentration is less than or equal to 0.4 mg/mL. If concentration is greater than 0.4 mg/mL recommend to administer through 0.22 micron low protein binding filter. Start Infusion 01/24/2023 10:20 AM EST 190 mg 500 mL/hr hEParin 100 UNIT/ML Lock Flush inj 500 Units 500 Units (5 mL), IV Lock, PRN Other, IV Flush, Starting on Mon01/24/23 at 0945, Until Mon01/24/23 at 1551, For 24 hours, Do not flush if lock, PICC, or central line not in place; IV infusing or unable to flush. Given 01/24/2023 11:24 AM EST 500 Units NSS infusion Intravenous, at 50 mL/hr, PRN, Starting on Mon01/24/23 at 1100, Until Mon01/24/23 at 1551, KVO Start Infusion 01/24/2023 9:50 AM EST 50 mL/hr ondansetron (Zofran) tab 8 mg 8 mg, Oral, ONCE, On Mon01/24/23 at 1100, For 1 dose, Give 30 minutes prior to chemotherapy. Given 01/24/2023 9:58 AM EST 8 mg sodium chloride 0.9 % flush central line 10 mL 10 mL, IV Push, PRN Other, IV Flush, Starting on Mon01/24/23 at 0945, Until Mon01/24/23 at 1551, For 24 hours, Do not flush if lock, PICC, or central line not in place; IV infusing or unable to flush. Given 01/24/2023 11:24 AM EST 10 mL documented in this encounter Care Teams Manager Online Relationship Specialty Start Date End Date Adan Rangel MD [address] [facility] [place] [address] PCP - General 12/14/05 documented as of this encounter
--- OUTSIDE RECORDS SUMMARY | 2023-03-08 13:29 | External Medical Summary ---
Author Name Unknown Address Unknown Organization K09:[facility] [place] [address] Laboratory Report Ordering Provider Test Date Status JOHANNE PAZ 01/23/2023 08:59:42 Final Observation Date Value Abnormality Reference (Units ) Status SYNC LEUKOCYTES IN BLOOD BY AUTOMATED COUNT 01/23/2023 08:59:42 11.05 Above high normal 4.00-10.80 (K/uL) Final Neutrophils/100 leukocytes in Blood by Manual count 01/23/2023 08:59:42 74.0 40.0-75.0 (%) Final Lymphocytes/100 leukocytes in Blood by Manual count 01/23/2023 08:59:42 22.0 18.0-42.0 (%) Final Monocytes/100 leukocytes in Blood by Manual count 01/23/2023 08:59:42 3.0 1.0-11.0 (%) Final Metamyelocytes/100 leukocytes in Blood by Manual count 01/23/2023 08:59:42 1.0 Above high normal <=0.0 (%) Final Neutrophils [#/volume] in Blood by Manual count 01/23/2023 08:59:42 8.18 Above high normal 1.80-7.70 (K/uL) Final Lymphocytes [#/volume] in Blood by Manual count 01/23/2023 08:59:42 2.43 1.00-4.80 (K/uL) Final Monocytes [#/volume] in Blood by Manual count 01/23/2023 08:59:42 0.33 0.00-1.10 (K/uL) Final Metamyelocytes [#/volume] in Blood by Manual count 01/23/2023 08:59:42 0.11 Above high normal <=0.00 (K/uL) Final Nucleated erythrocytes/100 leukocytes [Ratio] in Blood by Automated count 01/23/2023 08:59:42 Final Performing Location [facility] [place] [address]
--- OUTSIDE RECORDS SUMMARY | 2023-03-08 13:29 | External Medical Summary ---
Author Name Unknown Address Unknown Organization K09:[facility] [address] [place] [address] Laboratory Report Ordering Provider Test Date Status JOHANNE PAZ 01/23/2023 08:59:42 Final Observation Date Value Abnormality Reference (Units ) Status BUN 01/23/2023 08:59:42 18 6-20 (mg/dL) Final Creatinine 01/23/2023 08:59:42 1.0 0.5-1.0 (mg/dL) Final Glomerular filtration rate/1.73 sq M.predicted [Volume Rate/Area] in Serum, Plasma or Blood by Creatinine-based formula (CKD-EPI) 01/23/2023 08:59:42 65 >=60 (mL/min) Final eGFR is calculated based on the CKD-EPI 2020 equation SODIUM 01/23/2023 08:59:42 139 135-146 (m mol/L) Final Potassium 01/23/2023 08:59:42 3.5 3.5-5.1 (m mol/L) Final Cl 01/23/2023 08:59:42 98 98-107 (mm ol/L) Final CO2 01/23/2023 08:59:42 32 22-32 (mmo l/L) Final Anion gap 01/23/2023 08:59:42 9 7-15 (mmol /L) Final Glucose 01/23/2023 08:59:42 237 Above high normal 70 -120 (mg/dL) Final Albumin 01/23/2023 08:59:42 4.1 3.8-5.0 (g /dL) Final AST (Aspartate aminotransferase) 01/23/2023 08:59:42 15 10-35 (U/L) Fin al Alk Phos 01/23/2023 08:59:42 107 35-130 (U/ L) Final Bilirubin, Total 01/23/2023 08:59:42 <0.2 <=1 .2 (mg/dL) Final Calcium 01/23/2023 08:59:42 9.6 8.4-10.2 ( mg/dL) Final Protein 01/23/2023 08:59:42 7.0 6.0-8.3 (g /dL) Final ALT ([place] aminotransferase) 01/23/2023 08:59:42 16 10-35 (U/L) Alex middleton Performing Location [facility] [address] [place] [address]
--- OUTSIDE RECORDS SUMMARY | 2023-03-08 13:29 | External Medical Summary | Summary of Care ---
Author Name Unknown Organization [facility] Address [address] [place] [address] Phone [phone] Care Team Providers Care Retail Pos Specialist Name Role Phone Adan Rangel MD Primary Care Provider [phone]- [phone] Reason for Visit * Reason Comments Chemotherapy Cisplatin/Etoposide D1C2 * Episode Based Medications (Routine) - Authorized Specialty Diagnoses / Procedures Referred By Alvaro t Referred To Contact Diagnoses Small cell lung cancer (HCC) Encounter for antineoplastic chemotherapy Procedures [place] FOSAPREPITANT INJECTION MI CISPLATIN 10 MG INJECTION MI ETOPOSIDE 10 MG INJ Hernan Harris MD [address] [place] [address] Hem/Onc Scenery [place] [address] [facility] [place] [place] [address] Referral ID Status Reason Start Date Expiration Date V isits Requested Visits Authorized [id number] Authorized 12/29/2022 12/30/2023 999 999 Encounter Details Date Type Department Care Team (Latest Contact Info) Description 01/23/2023 10:00 AM EST Hem/Onc Treatment Hematology/Oncolog y Treatment, [place] [address] [place] [address] Ver[place], Chair 2 Hem Onc Scenery [address] [place] [address] Small cell lung cancer (HCC)*; Encounter for antineoplastic chemotherapy Allergies Active Allergy Reactions Criticality Noted Date Comments Cromolyn Edema face/lips/tongue High 11/21/2012 Facial numbness and swelling documented as of this encounter (statuses as of 01/23/2023) Medications Medication Sig Dispensed Refills Start Date [...] as of this encounter (statuses as of 01/23/2023) Active Problems Problem Noted Date Diagnosed Date Small cell lung cancer 12/28/2022 Encounter for antineoplastic chemotherapy 2022 Prediabetes 04/02/2018 Overview: Per Prediabetes protocol #1 HTN, goal below 140/90 08/23/2013 Allergic rhinitis 01/28/2008 Tobacco use disorder 01/28/2008 documented as of this encounter (statuses as of 01/23/2023) Resolved Problems Problem Noted Date Diagnosed Date Resolved Date HTN, goal below 130/80 02/16/201208/23 Need for influenza vaccination 01/28/2008 01/03/2017 Acute pharyngitis 01/28/2008 07/31/2008 Overview: Resolved per Benign Acute Dxs Protocol documented as of this encounter (statuses as of 01/23/2023) Immunizations Name Administration Dates Next Due COVID-19 [...] Sign Reading Time Taken Comments Blood Pressure 125/82 01/23/2023 10:39 AM EST Pulse 107 01/23/2023 10:39 AM EST Temperature - - Respiratory Rate - - Oxygen Saturation - - Inhaled Oxygen Concentration - - Weight - - Height - - Body Mass Index - - documented in this encounter Nursing Notes * Priscilla Gonzales, RN - 01/23/2023 4:15 PM EST Functional status at today's visit: Restricted in [...] or adverse side effects during treatment. Pt completed treatment without issues. IV flushed, clamped and capped for use with treatment tomorrow. Secured with gauze dressing. Goals: Pt will remain free from injury. Possible barriers to meeting goals: ambulation with IV pole Stability of the patient: Moderately stable - low risk of patient condition declining or worsening Summary regarding today's goals: Met: Pt remained free from injury during treatment today. Discharged in stable condition. GD assisted. * Priscilla Gonzales RN - 01/23/2023 10:39 AM EST Chair 3, Cisplatin/Etoposide D1C2. Pt seen by Pavithra SAL; refer to OV notes. Labs okay fortreatment; proceed as ordered. PIV established; NSS infusing. Safety and Risk for Injury Patient will remain free from injury. Ensure appropriate safety devices are available. Provide and maintain safe environment. documented in this encounter Plan of Treatment Upcoming Encounters Date Type Department Care Team (Late st Contact Info) Description 01/24/2023 9:00 AM EST Hem/Onc Treatment Hematology/Oncology Treatment, [address] [place] [address] Veronica, Chair 2 Hem Onc [address] [place] [address] 01/25/2023 9:30 AM EST Hem/Onc Treatment Hematology/Oncology Treatment, [place] [address] [facility] [place] [address] 02/13/2023 9:00 AM EST Laboratory Laboratory [facility] [place] [place] [phone] [place], Lab [address] [place] [address] 02/13/2023 9:30 AM EST Office Visit Hematology/Oncology Scenery [place] [address] [place], [place] [address] Pavithra Sumner CRNP [facility] [place] [address] 02/13/2023 10:00 AM EST Hem/Onc Treatment Hematology/Oncology Treatment, [place] 200 [facility], [place] [address] Veronica, Chair 4 Hem Onc Scenery [address] [place], [place] [address] 02/14/2023 9:30 AM EST Hem/Onc Treatment Hematology/Oncology Treatment, [place] 200 [facility], [place] [address] Veronica, Chair 6 Hem Onc Scenery [address] [place], [place] [address] 02/15/2023 9:30 AM EST Hem/Onc Treatment Hematology/Oncology Treatment, [place] 200 [facility], [place] [address] Veronica, Chair 8 Hem Onc Scenery [address] [place], [place] [address] 03/06/2023 9:00 AM EST Laboratory [facility] [place] [address] [place], [place] [phone] [place], Lab Scenery [address] [place], [place] [address] 03/06/2023 9:30 AM EST Office Visit Hematology/Oncology Scenery [place] [address] [place], [place] [address] Hernan Harris MD [address] [place], [place] [address] 03/06/2023 10:00 AM EST Hem/Onc Treatment Hematology/Oncology Treatment, [place] 200 [facility] [place] [address] 03/07/2023 9:30 AM EST Hem/Onc Treatment Hematology/Oncology Treatment, [place] 200 [place] [place] [address] Veronica, Chair 8 Hem Onc Scenery [address] [facility] [place] [place] [address] 03/08/2023 9:30 AM EST Hem/Onc Treatment Hematology/Oncology Treatment, [place] 200 [place] [place] [address] Veronica, Chair 6 Hem Onc Scenery [address] [facility] [place] [address] 07/10/2023 10:20 AM EDT Office Visit Pulmonary Medicine Yuni Stein [address] [place] [phone] Vinicius Irwin MD [address] [facility] [place] [address] Health Maintenance Due Date Last Done Comments [...] ONCE PRN Other, Hypersensitivity Reaction, Starting on Mon01/23/23 at 1037, Until Mon01/24/23 at 1036, For 24 hours EPINEPHrine 1 MG/ML inj 0.3 mg 0.3 mg, Intramuscular, ONCE PRN Other, Hypersensitivity Reaction or Anaphylaxis, Starting on Mon01/23/23 at 1037, Until Mon01/24/23 at 1036, For 24 hours hEParin 100 UNIT/ML Lock Flush inj 500 Units 500 Units (5 mL), IV Lock, PRN Other, IV Flush, Starting on Mon01/23/23 at 1037, Until Mon01/24/23 at 1036, For 24 hours, Do not flush if lock, PICC, or central line not in place; IV infusing or unable to flush. Given 01/23/2023 4:39 PM EST 500 Units Hydrocortisone Sod Suc (PF) (Solu-Cortef) inj 100 mg 100 mg, IV Push, ONCE PRN Other, Hypersensitivity Reaction, Starting on Mon01/23/23 at 1037, Until Mon01/24/23 at 1036, For 24 hours NSS 1,000 mL with magnesium sulfate 1 g infusion Intravenous, at 500 mL/hr Administer over 2 Hours, Post-cisplatin hydration, CONTINUOUS, Starting on Mon01/23/23 at 1315, Until Discontinued Start Infusion 01/23/2023 2:39 PM EST 500 mL/hr oxygen GAS Inhalation, OXYGEN, First dose on Mon01/23/23 at 1115, Until Discontinued, Device/Managed by: Low Flow Device, Goal SPO2 (%): 91-95, Starting Device: Nasal Cannula, Inital Flow Rate (LPM): 2, Lowest Support: Nasal [...] Push, PRN Other, IV Flush, Starting on Mon01/23/23 at 1037, Until Mon01/24/23 at 1036, For 24 hours, Do not flush if lock, PICC, or central line not in place; IV infusing or unable to flush. Given 01/23/2023 4:39 PM EST 10 mL Inactive Administered Medications - up to 3 most recent administrations Medication Order MAR Action Action Date Dose Rate Site CISplatin (Platinol) 140 mg in NSS 500 mL infusion 140 mg (rounded from 139.5 mg = 75 mg/m2 1.86 m2 Treatment Plan BSA from Recorded weight), IV Piggyback, Administer over 60 Minutes, PROTECT FROM LIGHT, ONCE, 1 dose, On Mon01/23/23 at 1345 Start Infusion 01/23/2023 1:34 PM EST 140 mg 500 mL/hr etoposide (VEPESID) 190 mg in NSS 500 mL infusion 190 mg (rounded from 186 mg = 100 mg/m2 1.86 m2 Treatment Plan BSA from Recorded weight), IV Piggyback, ONCE, 1 dose, On Mon01/23/23 at 1445, Administer over 60 Minutes, Recommended concentration is less than or equal to 0.4 mg/mL. If concentration is greater than 0.4 mg/mL recommend to administer through 0.22 micron low protein binding filter. Start Infusion 01/23/2023 11:46 AM EST 190 mg 500 mL/hr fosaprepitant Dimeglumine (Emend) 150 mg, ondansetron (Zofran) 16 mg, dexamethasone sodium phosphate 12 mg in NSS 250 mL Infusion 150 mg, IV Piggyback, ONCE, 1 dose, On Mon01/23/23 at 1145, Administer over 30 Minutes, Give 30 minutes prior to chemotherapy. Infuse over 30 minutes. Start Infusion 01/23/2023 11:04 AM EST 150 mg 500 mL/hr NSS infusion 1,000 mL, Intravenous, at 500 mL/hr, CONTINUOUS, Starting on Mon01/23/23 at 1145, Until Mon01/23/23 at 1344 Start Infusion 01/23/2023 10:45 AM EST 1,000 mL 500 mL/hr potassium chloride ER tab 20 mEq 20 mEq, Oral, ONCE, On Mon01/23/23 at 1315, For 1 dose, This med should NOT be Crushed or Chewed Give with post-hydration. Hold if serum potassium is greater than or equal to 5 mmol/L. Given 01/23/2023 2:39 PM EST 20 mEq documented in this encounter Care Teams Retail Pos Specialist Relationship Specialty Start Date End Date Adan Rangel MD [address] [place] [address] PCP - General 12/14/05 documented as of this encounter
--- OUTSIDE RECORDS SUMMARY | 2023-03-08 13:29 | External Medical Summary | Summary of Care ---
Author Name Unknown Organization [facility] Address [address] [place] [address] Phone [phone] Care Team Providers Care Oil Boiler Name Role Phone Adan Rangel MD Primary Care Provider [phone]- [phone] Reason for Visit * Reason Comments Chemotherapy C2D2 Etoposide * Episode Based Medications (Routine) - Authorized Specialty Diagnoses / Procedures Referred By Alvaro bennett Referred To Contact Diagnoses Small cell lung cancer (HCC) Encounter for antineoplastic chemotherapy Procedures [place] FOSAPREPITANT INJECTION [place] CISPLATIN 10 MG INJECTION [place] ETOPOSIDE 10 MG INJ Hernan Harris MD [address] [place] [address] Hem/Onc [facility] 200 [facility] [place] [address] Referral ID Status Reason Start Date Expiration Date V isits Requested Visits Authorized [id number] Authorized 12/29/2022 12/30/2023 999 999 Encounter Details Date Type Department Care Team (Latest Contact Info) Description 01/24/2023 9:00 AM EST Hem/Onc Treatment Hematology/Oncolog y Treatment, [place] [address] [place] [address] Veronica, Chair 2 Hem Onc Scenery [address] [place] [address] Small cell lung cancer (HCC)*; Encounter for [...] 9:30 AM EST Hem/Onc Treatment [facility]ology[facility], [place] [facility] [address] 02/13/2023 9:00 AM EST Laboratory Laboratory [facility] [address] [place] [phone] [place], Lab [address] [place] [address] 02/13/2023 9:30 AM EST Office Visit Hematology/Oncology [address] [place] [address] Pavithra Sumner CRNP [address] [place] [address] [place] [id number] 02/13/2023 10:00 AM EST Hem/Onc Treatment Hematology/Oncology Treatment, [place] 200 [place] [address] Veronica, Chair 4 Hem Onc Scenery [address] [place], [place] [address] 02/14/2023 9:30 AM EST Hem/Onc Treatment Hematology/Oncology Treatment, [place] 200 [place] [address] Veronica, Chair 6 Hem Onc Scenery [address] [place] [address] 02/15/2023 9:30 AM EST Hem/Onc Treatment Hematology/Oncology Treatment, [place] 200 [place] [address] Veronica, Chair 8 Hem Onc Scenery [address] [facility] [place], [place] [address] 03/06/2023 9:00 AM EST Laboratory [facility] [place] [address] [place], [place] [phone] [place], Lab Scenery [address] [place], [place] [address] 03/06/2023 9:30 AM EST Office Visit Hematology/Oncology [facility] [place] [address] [place], [place] [address] Hernan Harris MD [address] [place], [place] [address] 03/06/2023 10:00 AM EST Hem/Onc Treatment Hematology/Oncology Treatment, [address], [place] [address] 03/07/2023 9:30 AM EST Hem/Onc Treatment Hematology/Oncology Treatment, [place] 200 [place] [address] Veronica, Chair 8 Hem Onc Scenery [address] [place], [place] [address] 03/08/2023 9:30 AM EST Hem/Onc Treatment Hematology/Oncology Treatment, [place] [address] [place] [address] Veronica, Chair 6 Hem Onc Scenery [address] [place] [address] 07/10/2023 10:20 AM EDT Office Visit Pulmonary Medicine Yuni Stein [address] [place] [phone] Vinicius Irwin MD [address] [place] [address] Health Maintenance Due Date Last Done Comments [...] ONCE PRN Other, Hypersensitivity Reaction, Starting on Mon01/24/23 at 0945, Until Mon01/25/23 at 0944, For 24 hours EPINEPHrine 1 MG/ML inj 0.3 mg 0.3 mg, Intramuscular, ONCE PRN Other, Hypersensitivity Reaction or Anaphylaxis, Starting on Mon01/24/23 at 0945, Until Mon01/25/23 at 0944, For 24 hours hEParin 100 UNIT/ML Lock Flush inj 500 Units 500 Units (5 mL), IV Lock, PRN Other, IV Flush, Starting on Mon01/24/23 at 0945, Until Mon01/25/23 at 0944, For 24 hours, Do not flush if lock, PICC, or central line not in place; IV infusing or unable to flush. Given 01/24/2023 11:24 AM EST 500 Units Hydrocortisone Sod Suc (PF) (Solu-Cortef) inj 100 mg 100 mg, IV Push, ONCE PRN Other, Hypersensitivity Reaction, Starting on Mon01/24/23 at 0945, Until Mon01/25/23 at 0944, For 24 hours NSS infusion Intravenous, at 50 mL/hr, PRN, Starting on Mon01/24/23 at 1100, Until Discontinued, KVO Start Infusion 01/24/2023 9:50 AM EST 50 mL/hr oxygen GAS Inhalation, OXYGEN, First dose on Mon01/24/23 at 1030, Until Discontinued, Device/Managed by: Low Flow Device, [...] Flush, Starting on Mon01/24/23 at 0945, Until Mon01/25/23 at 0944, For 24 hours, Do not flush if lock, PICC, or central line not in place; IV infusing or unable to flush. Given 01/24/2023 11:24 AM EST 10 mL Inactive Administered Medications - [...] 10:20 AM EST 190 mg 500 mL/hr ondansetron (Zofran) tab 8 mg 8 mg, Oral, ONCE, On Mon01/24/23 at 1100, For 1 dose, Give 30 minutes prior to chemotherapy. Given 01/24/2023 9:58 AM EST 8 mg documented in this encounter Care Teams Oil Boiler Relationship Specialty Start Date End Date Adan Rangel MD [address] [place] [address] PCP - General 12/14/05 documented as of this encounter
--- OUTSIDE RECORDS SUMMARY | 2023-03-08 13:29 | External Medical Summary | Summary of Care ---
Author Name Unknown Organization [facility] Address [address] [place] [address] Phone [phone] Care Team Providers Care Warp Knit Operator Name Role Phone Adan Rangel MD Primary Care Provider [phone]- [phone] Reason for Visit * Reason Comments Outpatient Testing Encounter Details Date Type Department Care Team (Late st Contact Info) Description 01/23/2023 8:30 AM EST Laboratory Laboratory [facility] [place] [address] [place] [phone] [place], Lab Scenery [address] [place] [address] Small cell lung cancer (HCC) Allergies Active [...] mRNA, LNP-s, No Pre serve, 2-Dose Series (Get Smart Content) 07/03/2020,06/12/2020 Pneumococcal Polysaccharide PPV23 (Pneumovax) 11/11/2014 SEASONAL [...] Care Team (Latest Contact Info) Description 01/23/2023 9:30 AM EST Office Visit Hematology/Oncology [place] [address] [place] [address] [facility]ithra Sumner [facility] [place] [address] PENDING VISIT DRAFT 01/23/2023 10:00 AM EST Hem/Onc Treatment Hematology/[address], [address] [address] Veronica, Chair 2 Hem Onc [address] [place] [address] Arrived 01/24/2023 9:00 AM EST Hem/Onc Treatment Hematology/[address]cology [address], [address] [address] Veronica, Chair 2 Hem Onc [place] [address] Echo Sharma [place] [address] 01/25/2023 9:30 AM EST Hem/Onc Treatment Hematology/[address], [address] [address] 07/10/2023 10:20 AM EDT Office Visit Pulmonary Medicine [place] [address] [place] [phone] Vinicius Irwin MD [address] [place] [address] Pending Results Name Type Priority Associated Diagnoses Date /Time CBC WITH WBC DIFFERENTIAL Lab STAT Small cell lung cancer (HCC) 01/23/2023 8:59 AM EST COMPREHENSIVE METABOLIC PANEL Lab STAT Small cell lung cancer (HCC) 01/23/2023 8:59 AM EST MAGNESIUM Lab STAT Small cell lung cancer (HCC) 01/23/2023 8:59 AM EST CBC Lab STAT Small cell lung cancer (HCC) 01/23/2023 8:59 AM EST DIFFERENTIAL, AUTOMATED Lab STAT Small cell lung cancer (HCC) 01/23/2023 8:59 AM EST Health Maintenance Due Date Last [...] Td or Tdap) 02/20/2023 02/20/2013, 02/02/2006 GFR 12/31/2023 12/30/2022, 11/19, 08/02/2021, Additional history exists Albumin/Creatinine Ratio 08/02/2024 022, [...] site documented in this encounter Care Teams Warp Knit Operator Relationship Specialty Start Date End Date Adan Rangel MD [address] [place] [address] PCP - General 12/14/05 documented as of this encounter
--- OUTSIDE RECORDS SUMMARY | 2023-03-08 13:29 | External Medical Summary ---
Author Name Unknown Address Unknown Organization K09[facility] [place] [address] Laboratory Report Ordering Provider Test Date Status JOHANNE PAZ 01/23/2023 08:59:42 Final Observation Date Value Abnormality Reference (Units ) Status Magnesium 01/23/2023 08:59:42 1.7 1.5-2.6 (m g/dL) Final Performing Location [facility] [place] [address]
--- OUTSIDE RECORDS SUMMARY | 2023-03-08 13:29 | External Medical Summary | Summary of Care ---
Author Name Unknown Organization [facility] Address [address] [place] [address] Phone [phone] Care Team Providers Care Supervisor [employer] Name Role Phone Adan Rangel MD Primary Care Provider [phone]- [phone] Reason for Visit * Reason Comments Chemotherapy Chemo/recheck Encounter Details Date Type Department Care Team (Late st Contact Info) Description 01/23/2023 9:30 AM EST Office Visit Hematology/Oncology [facility] [address] [place] [address] Pavithra Sumner CRNP [address] [place] [address] Small cell lung cancer (HCC)*; Encounter for antineoplastic chemotherapy Allergies Active Allergy Reactions Criticality Noted Date Comments Cromolyn Edema face/lips/tongue High 11/21/2012 Facial numbness and swelling documented as of this encounter (statuses as of 01/25/2023) Medications Medication Sig Dispensed Refills Start Date [...] as of this encounter (statuses as of 01/25/2023) Active Problems Problem Noted Date Diagnosed Date Small cell lung cancer 12/28/2022 Encounter for antineoplastic chemotherapy 2022 Prediabetes 04/02/2018 Overview: Per Prediabetes protocol #1 HTN, goal below 140/90 08/23/2013 Allergic rhinitis 01/28/2008 Tobacco use disorder 01/28/2008 documented as of this encounter (statuses as of 01/25/2023) Resolved Problems Problem Noted Date Diagnosed Date Resolved Date HTN, goal below 130/80 02/16/201208/23 Need for influenza vaccination 01/28/2008 01/03/2017 Acute pharyngitis 01/28/2008 07/31/2008 Overview: Resolved per Benign Acute Dxs Protocol documented as of this encounter (statuses as of 01/25/2023) Immunizations Name Administration Dates Next Due COVID-19 mRNA, LNP-s, No Pre serve, 2-Dose Series ([employer]) 07/03/2020,06/12/2020 Pneumococcal Polysaccharide PPV23 (Pneumovax) 11/11/2014 SEASONAL [...] Time Taken Comments Blood Pressure 125/82 01/23/2023 9:34 AM EST Pulse 107 01/23/2023 9:34 AM EST Temperature 36.6 C (97.9 F) 01/23/2023 9:34 AM ES T Respiratory Rate 16 01/23/2023 9:34 AM EST Oxygen Saturation 94% 01/23/2023 9:34 AM EST Inhaled Oxygen Concentration - - Weight 76.7 kg (169 lb) 01/23/2023 9:34 AM EST Height - - Body Mass Index 30.91 12/28/2022 11:24 AM EDT documented in this encounter Progress Notes * Pavithra Sumner CRNP - 01/23/2023 9:30 AM EST Images from the original note were not included. Hematology/Oncology Outpatient Clinic note [address] [address] [place], [place] [address] Name: Kimberly Wheatley Date: 01/22/2023 CHIEF COMPLAINT: Kimberly Wheatley is a 57 year old female patient of Dr. Hernan Harirs here today for f/u visit today. From Patient chart confirmed with patient. From Dr. Becerra Kimberly note 12/28/22 HEMATOLOGY/ONCOLOGY DIAGNOSIS: Small-cell neuroendocrine carcinoma of the [...] type of cancer Interval History: MRI Brain [facility] 01/05/23: HISTORY OF PRESENT ILLNESS: Kimberly Wheatley is a 57 year old female with a history as outlined above. Currently here for f/u visit today and consideration for C2D1 of treatment. Patient feeling well today. No significant complaints or concerns. Denies any signs of infection including significant increase cough, SOB, fevers or burning with urination. Denies mouth sores or pain. Did experience nausea. Is taking Zofran ATC and compazine as needed for the first week. Then second week just took the compazine as needed. Deniesnumbness or tingling. Did have ringing in the years yesterday but only for a few minutes. Did have some mild weight loss. Is trying to eat small meals throughout the day. Received first dose of radiat ion today. Marquand that it went well. Scheduled for 30 total. Last scheduled treatment March 06. Past Medical History: Diagnosis Date ALLERGIC RHINITIS [...] performed by Vinicius Irwin MD at OR [facility] COLPOSCOPY OF CERVIX W/BIOPSY 1988 HYSTEROSCOPY;ENDOMETRIAL ABLAT LAPAROSCOPY; CHOLECYSTECTOMY 11/11/2011 11/11/2011 laparoscopic cholecystectomy - [facility] - Dr. Vinay Torres Social History Socioeconomic [...] the house, out side cats No mold [place] heating Social Determinants of Health Financial Resource [...] HPI - otherwise negative OBJECTIVE: Filed Vitals: 01/23/23 0934 BP: 125/82 Pulse: 107 Resp: 16 Temp: 36.6 C (97.9 F) TempSrc: Tympanic SpO2: 94% Weight: 76.7 kg (169 lb) Wt Readings from Last 5 Encounters: 01/23/23 76.7 kg (169 lb) 12/28/22 78.2 kg (172 lb 6.4 oz) 12/21/22 78.9 kg (174 lb) 12/12/22 78.9 kg (174 lb) 12/01/22 80.9 kg (178 lb 6.4 oz) PHYSICAL EXAM: ECOG: Performance Status 1 = 80-90% Symptoms but nearly ambulatory General Appearance: No acute distress HEENT: Normal - No oral or pharyngeal masses, ulceration or thrush noted Lymph Nodes: Normal - No palpable lymph nodes in the neck or supraclavicular areas Lungs/Thorax: Clear and diminished throughout to auscultation Heart: Normal - Regular rhythm, +tachycardia, normal S1, S2, no appreciable murmurs Pulses/Extremities: Normal - 2+ throughout and symmetrical, no edema Neurologic: Normal - Grossly intact LABS: Results for orders placed or performed in visit on 01/23/23 COMPREHENSIVE METABOLIC PANEL Result Value Ref Range BUN 18 6 - 20 mg/dL Creatinine 1.0 0.5 - 1.0 mg/dL Estimated Glomerular Filtration Rate 65 >=60 mL/min Sodium 139 135 - 146 mmol/L Potassium 3.5 3.5 - 5.1 mmol/L Chloride 98 98 - 107 mmol/L CO2 32 22 - 32 mmol/L Anion Gap 9 7 - 15 mmol/L Glucose 237 (H) 70 - 120 mg/dL Albumin 4.1 3.8 - 5.0 g/dL AST 15 10 - 35 U/L Alkaline Phosphatase 107 35 - 130 U/L Bilirubin, Total <0.2 <=1.2 mg/dL Calcium 9.6 8.4 - 10.2 mg/dL Protein 7.0 6.0 - 8.3 g/dL ALT 16 10 - 35 U/L MAGNESIUM Result Value Ref Range Magnesium 1.7 1.5 - 2.6 mg/dL CBC Result Value Ref Range WBC 11.05 (H) 4.00 - 10.80 K/uL RBC 4.84 3.85 - 5.15 M/uL HGB 13.9 12.0 - 15.3 g/dL HCT 40.8 36.0 - 45.2 % MCV 84.3 81.5 - 97.5 fL MCH 28.7 27.0 - 34.0 pg MCHC 34.1 32.0 - 36.0 g/dL RDW 14.4 11.5 - 15.5 % PLT 267 140 - 400 K/uL MPV 9.8 6.6 - 11.1 fL DIFFERENTIAL, TECHNOLOGIST REVIEW Result Value Ref Range WBC 11.05 (H) 4.00 - 10.80 K/uL Neutrophils % 74.0 40.0 - 75.0 % Lymphocytes % 22.0 18.0 - 42.0 % Monocytes % 3.0 1.0 - 11.0 % Metamyelocytes % 1.0 (H) <=0.0 % Absolute Neutrophils 8.18 (H) 1.80 - 7.70 K/uL Absolute Lymphocytes 2.43 1.00 - 4.80 K/uL Absolute Monocytes 0.33 0.00 - 1.10 K/uL Absolute Metamyelocytes 0.11 (H) <=0.00 K/uL nRBCs IMPRESSION/PLAN: 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 Received first dose of radiation therapy today. Planned for 30 total treatments. Last scheduled 03/06/23. RTC in three weeks with provider for chemo return RTC in six weeks with physician for chemo return DORON Chaudhry documented in this encounter Nursing Notes * Falguni Adams CMA - 01/23/2023 9:34 AM EST Patient identifed by name and [...] it for you? ALREADY ACTIVE Filed Vitals: 01/23/23 0934 BP: 125/82 Pulse: 107 Resp: 16 Temp: 36.6 C (97.9 F) TempSrc: Tympanic SpO2: 94% Weight: 76.7 kg (169 lb) Patient was instructed to not get up [...] Description 02/13/2023 9:00 AM EST Laboratory Laboratory [facility] [place] [address] [facility] [place] [phone] [facility] [address] [place] [address] 02/13/2023 9:30 AM EST Office Visit Hematology/Oncology [facility] [address] [place] [address] Pavith[facility] Sum[facility] [address] [facility] [address] 02/13/2023 10:00 AM EST Hem/Onc Treatment Hematology/Oncology Treatment, [place] [address] [place] [address] Veronica, Chair 4 Hem Onc [facility] [address] [facility] [place] [address] 02/14/2023 9:30 AM EST Hem/Onc Treatment Hematology/Oncology Treatment, [place] 200 [place] [address] Veronica, Chair 6 Hem Onc [facility] [address] [place], [place] [address] 02/15/2023 9:30 AM EST Hem/Onc Treatment Hematology/Oncology Treatment, [place] [address] [place] [address] Veronica, Chair 8 Hem Onc [facility] [address] [facility] [place], [place] [address] 03/06/2023 9:00 AM EST Laboratory Laboratory [facility] [place] [address] [place], [place] [phone] Veronica, Lab Scenery [address] [facility] [place], [place] [address] 03/06/2023 9:30 AM EST Office Visit Hematology/Oncology [facility] [place] [address] [place], [place] [address] Hernan Harris MD [address] [place], [place] [address] 03/06/2023 10:00 AM EST Hem/Onc Treatment Hematology/Oncology Treatment, [place] [address] [facility], [place] [address] 03/07/2023 9:30 AM EST Hem/Onc Treatment Hematology/Oncology Treatment, [place] [address] [facility], [place] [address] Veronica, Chair 8 Hem Onc [place] [address] [facility] [place], [place] [address] 03/08/2023 9:30 AM EST Hem/Onc Treatment Hematology/Oncology Treatment, [place] [address] [facility], [place] [address] Veronica, Chair 6 Hem Onc [facility] [address] [facility] [place], [place] [address] 07/10/2023 10:20 AM EDT Office Visit Pulmonary Medicine [facility] [address] [place] [phone] Vinicius Irwin MD [address] [place] [address] Health Maintenance Due Date Last Done Comments [...] 08/02/2021, 01/18, 07/27/2018 COVID-19 Vaccine ( - 2022- season) 2022 07/03/2020, 06/12/2020 HbA1c [...] for antineoplastic chemotherapy documented in this encounter Care Teams Supervisor [employer] Relationship Specialty Start Date End Date Adan Rangel MD [address] [place] [address] PCP - General 12/14/05 documented as of this encounter
--- OUTSIDE RECORDS SUMMARY | 2023-03-08 13:29 | External Medical Summary | Summary of Care ---
Author Name Unknown Organization [facility] Address [address] [place] [address] Phone [phone] Care Team Providers Care Tube Test Technician Name Role Phone Adan Rangel MD Primary Care Provider [phone]- [phone] Reason for Visit * Reason Comments Chemotherapy C2/D3 - Etoposide * Episode Based Medications (Routine) - Authorized Specialty Diagnoses / Procedures Referred By Alvaro bennett Referred To Contact Diagnoses Small cell lung cancer (HCC) Encounter for antineoplastic chemotherapy Procedures NM FOSAPREPITANT INJECTION NM CISPLATIN 10 MG INJECTION NM ETOPOSIDE 10 MG INJ Hernan Harris MD [address] [place] [address] Hem/Onc [facility] 200 [place] [address] Referral ID Status Reason Start Date Expiration Date V isits Requested Visits Authorized [id number] Authorized 12/29/2022 12/30/2023 999 999 Encounter Details Date Type Department Care Team (Latest Contact Info) Description 01/25/2023 9:30 AM EST Hem/Onc Treatment Hematology/Oncolog y Treatment, [facility] [address] [place] [address] Small cell lung cancer (HCC)*; Encounter for [...] mRNA, LNP-s, No Pre serve, 2-Dose Series ([employer]) 07/03/2020,06/12/2020 Pneumococcal Polysaccharide PPV23 (Pneumovax) 11/11/2014 SEASONAL [...] Sign Reading Time Taken Comments Blood Pressure 167/95 01/25/2023 9:30 AM EST has not taken her BP medication yet, will take when she goes back home Pulse 85 01/25/2023 9:30 AM EST Temperature 36.9 C (98.5 F) 01/25/2023 9 :30 AM EST Respiratory Rate 16 01/25/2023 9:30 AM EST Oxygen Saturation 94% 01/25/2023 9:3 0 AM EST Inhaled Oxygen Concentration - - Weight - - Height - - Body Mass Index - - documented in this encounter Nursing Notes * Keeley Schultz RN - 01/25/2023 11:45 AM EST Chair 9. Patient here for day 3/3 Etoposide only today. IV left in place from treatment yesterday, CDI/WNL/blood return present. Patient overall feeling well, just feeling somewhat queasy and somewhat anxious d/t a in the family just this morning. BP was elevated today at 167/95 -- patient typically takes her BP meds in the morning but says she got "off schedule this week." Patient says she will take her BP medication once she gets home. Patient also educated she could take a Compazine once she gets home as well to help with the queasiness -- pt communicated understanding. Chemo agents C2/D3 - Etoposide Appetite fair/good overall Nausea/Vomiting some queasiness this morning -- see above Diarrhea some loose stools but no true diarrhea, loose stool just on occasion Constipation no Mucositis no Fatigue some fatigue today but overall still able to everything she needs to do daily -- pt did sayshe slept a lot yesterday but still did some tasks which she feels may have worn her out Bleeding no Infection no Rash no Numbness tingling no Pain no Radiation no ABN Labs WNL, done on day 1 of cycle - no labs needed today Alt in Tx: N/A Return in 3 weeks Safety and Risk for Injury Patient will [...] stable condition and denied any further needs. documented in this encounter Plan of Treatment Upcoming Encounters Date Type Department Care Team (Late st Contact Info) Description 02/13/2023 9:00 AM EST Laboratory Laboratory [facility] [address] [facility], [place] [phone] Veronica, Lab Scenery [address] [facility] [place], [place] [address] 02/13/2023 9:30 AM EST Office Visit Hematology/Oncology [facility] [address] [facility], [place] [address] Pavithra Sumner CRNP 400 [facility] [place] [address] 02/13/2023 10:00 AM EST Hem/Onc Treatment Hematology/Oncology Treatment, [facility] 200 [facility], [place] [address] Veronica, Chair 4 Hem Onc [facility] [address] [facility] [place], [place] [address] 02/14/2023 9:30 AM EST Hem/Onc Treatment Hematology/Oncology Treatment, [facility] [address] [facility], [place] [address] Veronica, Chair 6 Hem Onc [facility] [address] [facility] [place], [place] [address] 02/15/2023 9:30 AM EST Hem/Onc Treatment Hematology/Oncology Treatment, [facility] [address] [facility], [place] [address] Veronica, Chair 8 Hem Onc [facility] [address] [facility] [place], [place] [address] 03/06/2023 9:00 AM EST Laboratory Laboratory [facility] [address] [place], [place] [phone] Veronica, Lab Scenery [address] [facility] [place], [place] [address] 03/06/2023 9:30 AM EST Office Visit Hematology/Oncology [facility] [address] [facility], [place] [address] Hernan Harris MD 200 [place] [address] 03/06/2023 10:00 AM EST Hem/Onc Treatment Hematology/Oncology Treatment, [facility] 200 [facility] [place] [address] 03/07/2023 9:30 AM EST Hem/Onc Treatment Hematology/Oncology Treatment, [facility] [address] [facility] [place] [address] Veronica, Chair 8 Hem Onc Scenery [address] [place] [address], [place] [address] 03/08/2023 9:30 AM EST Hem/Onc Treatment Hematology/Oncology Treatment, [facility] [address] [facility] [place] [address] Veronica, Chair 6 Hem Onc Scenery [address] [place] [address], [place] [address] 07/10/2023 10:20 AM EDT Office Visit Pulmonary Medicine [facility] Stein [address] [place] [address] Vinicius Irwin MD [address] [place] [address] Health Maintenance Due Date Last Done Comments [...] ONCE PRN Other, Hypersensitivity Reaction, Starting on Mon01/25/23 at 0948, Until Tabitha 01/26/23 at 0947, For 24 hours EPINEPHrine 1 MG/ML inj 0.3 mg 0.3 mg, Intramuscular, ONCE PRN Other, Hypersensitivity Reaction or Anaphylaxis, Starting on Mon01/25/23 at 0948, Until Tabitha 01/26/23 at 0947, For 24 hours hEParin 100 UNIT/ML Lock Flush inj 500 Units 500 Units (5 mL), IV Lock, PRN Other, IV Flush, Starting on Mon01/25/23 at 0948, Until Tabitha 01/26/23 at 0947, For 24 hours, Do not flush if lock, PICC, or central line not in place; IV infusing or unable to flush. Hydrocortisone Sod Suc (PF) (Solu-Cortef) inj 100 mg 100 mg, IV Push, ONCE PRN Other, Hypersensitivity Reaction, Starting on Mon01/25/23 at 0948, Until Tabitha 01/26/23 at 0947, For 24 hours NSS infusion Intravenous, at 50 mL/hr, PRN, Starting on Mon01/25/23 at 1100, Until Discontinued, KVO Start Infusion 01/25/2023 9:50 AM EST 50 mL/hr oxygen GAS Inhalation, OXYGEN, First dose on Mon01/25/23 at 1030, Until Discontinued, Device/Managed by: Low [...] Push, PRN Other, IV Flush, Starting on Mon01/25/23 at 0948, Until Tabitha 01/26/23 at 0947, For 24 hours, Do not flush if [...] weight), IV Piggyback, ONCE, 1 dose, On Mon01/25/23 at 1130, Administer over 60 Minutes, Recommended concentration is less than or equal to 0.4 mg/mL. If concentration is greater than 0.4 mg/mL recommend to administer through 0.22 micron low protein binding filter. Start Infusion 01/25/2023 10:19 AM EST 190 mg 500 mL/hr ondansetron (Zofran) tab 8 mg 8 mg, Oral, ONCE, On Mon01/25/23 at 1100, For 1 dose, Give 30 minutes prior to chemotherapy. Given 01/25/2023 9:50 AM EST 8 mg documented in this encounter Care Teams Tube Test Technician Relationship Specialty Start Date End Date Adan Rangel MD [address] [place] [address] PCP - General 12/14/05 documented as of this encounter
--- OUTSIDE RECORDS SUMMARY | 2023-03-08 13:30 | External Medical Summary | Summary of Care ---
Author Name Unknown Organization [facility] Address [address] [place] [address] Phone [phone] Care Team Providers Care Director Global Sales Name Role Phone Adan Rangel MD Primary Care Provider [phone]- [phone] Encounter Details Date Type Department Care Team (Late st Contact Info) Description 01/18/2023 Orders Only Hematology/Oncology [facility] 200 [facility] [place] [address] Flynn Goldman MD 200 [facility] [place] [address] Allergies Active Allergy Reactions Criticality Noted Date Comments Cromolyn Edema face/lips/tongue High 11/21/2012 Facial numbness and swelling documented as of this encounter (statuses as of 01/20/2023) Medications Medication Sig Dispensed Refills Start Date [...] as of this encounter (statuses as of 01/20/2023) Active Problems Problem Noted Date Diagnosed Date Small cell lung cancer 12/28/2022 Encounter for antineoplastic chemotherapy 2022 Prediabetes 04/02/2018 Overview: Per Prediabetes protocol #1 HTN, goal below 140/90 08/23/2013 Allergic rhinitis 01/28/2008 Tobacco use disorder 01/28/2008 documented as of this encounter (statuses as of 01/20/2023) Resolved Problems Problem Noted Date Diagnosed Date Resolved Date HTN, goal below 130/80 02/16/201208/23 Need for influenza vaccination 01/28/2008 01/03/2017 Acute pharyngitis 01/28/2008 07/31/2008 Overview: Resolved per Benign Acute Dxs Protocol documented as of this encounter (statuses as of 01/20/2023) Immunizations Name Administration Dates Next Due COVID-19 [...] Description 01/23/2023 8:30 AM EST Laboratory Laboratory [facility] [address] [place] [phone] Veronica Lab [place] [address] [address] [facility] [place] [address] 01/23/2023 9:30 AM EST Office Visit Hematology/Oncology [facility] [place] [address] [place] [address] Pavithra Sumner, DORON [address] [facility] [address] 01/23/2023 10:00 AM EST Hem/Onc Treatment Hematology/Oncology Treatment, [address] [place] [address] Veronica, Chair 2 Hem Onc [facility] [place] [address] 01/24/2023 9:00 AM EST Hem/Onc Treatment Hematology[address]cology [address] [address] Veronica, Chair 2 Hem Onc [facility] [address] [place] [address] 01/25/2023 9:30 AM EST Hem/Onc Treatment Hematology/Oncology Treatment, [place] [address] [place], [place] [phone] 07/10/2023 10:20 AM EDT Office Visit Pulmonary Medicine [facility] [address] [place] [phone] Vinicius Irwin MD [address] [place] [address] Health Maintenance Due Date Last Done Comments [...] filedocumented as of this encounter Care Teams Director Global Sales Relationship Specialty Start Date End Date Adan Rangel MD [address] [place] [address] PCP - General 12/14/05 documented as of this encounter
--- OUTSIDE RECORDS SUMMARY | 2023-03-08 13:34 | External Medical Summary ---
Author Name Unknown Address Unknown Organization [id number]:[facility] [place] [address] [place] [address] Laboratory Report Ordering Provider Test Date Status ABBY VANESSA 12/21/2022 12:45:00 Final Observation Date Value Abnormality Reference (Units ) Status Bacteria identified in Specimen by Culture 12/21/2022 12:45:00 No acid fast bacilli isolated Final Microscopic observation [Identifier] in Specimen by Rhodamine-auramine fluorochrome stain 12/21/2022 12:45:00 No acid fast bacilli seen Final Test: Culture, AFB
Speci men Source: Lung, Left
Specimen Type: Bronchial Washing
Specimen Date: 12/21/2022 12:45 PM
Result Date: 02/21/2023 11:58 AM
Result Status: Final result
Resulting Lab: [facility] [place]
[address]
[place] [address]

CULTURE

No acid fast bacilli isolated

STAIN

No acid fast bacilli seen

null Performing Location [facility] [place] [facility] [address] [place] [address]
--- OUTSIDE RECORDS SUMMARY | 2023-03-08 13:34 | External Medical Summary ---
Author Name Unknown Address Unknown Organization [id number]:[facility] [place] [address] [place] [address] Laboratory Report Ordering Provider Test Date Status ABBY VANESSA 12/21/2022 12:46:00 Final Observation Date Value Abnormality Reference (Units ) Status Bacteria identified in Specimen by Culture 12/21/2022 12:46:00 No acid fast bacilli isolated Final Microscopic observation [Identifier] in Specimen by Rhodamine-auramine fluorochrome stain 12/21/2022 12:46:00 No acid fast bacilli seen Final Test: Culture, AFB
Speci men Source: Lung, Left
Specimen Type: Bronchoalveolar Lavage (BAL)
Specimen Date: 12/21/2022 12:46 PM
Result Date: 02/21/2023 10:34 AM
Result Status: Final result
Resulting Lab: [facility] [place]
[address]
[place] [address]

CULTURE

No acid fast bacilli isolated

STAIN

No acid fast bacilli seen

null Performing Location [facility] [place] [address] [place] [address]
[2023-03-08] MEDS ORDERED: POTASSIUM CHLORIDE CRTAB 20 MEQ TABCR PO ONE (14:25)
[2023-03-08] MEDS ORDERED: CARBOHYDRATES FOR HYPOGLYCEMIA PO PRN (15:42)
[2023-03-08] MEDS ORDERED: GLUCOSE 40% GEL 15 GM TUBE PO PRN (15:42)
[2023-03-08] MEDS ORDERED: DEXTROSE 50% 50 ML SYRINGE IV PRN (15:42)
[2023-03-08] MEDS ORDERED: GLUCAGON FOR INJ 1 MG VIAL SQ PRN (15:42)
[2023-03-08] MEDS ORDERED: GLUCOSE 10 TAB/TUBE PO PRN (15:42)
[2023-03-08] MEDS ORDERED: ONDANSETRON INJ 2 MG/ML 2 ML VIAL IV PRN (16:48)
[2023-03-08] MEDS ORDERED: ACETAMINOPHEN 325 MG TAB PO PRN (16:48)
[2023-03-08] MEDS ORDERED: ALBUTEROL HFA 8 GM INHALER INH PRN (16:48)
[2023-03-08] MEDS ORDERED: POLYETHYLENE (MIRALAX) 17 GM PACK PO PRN (16:48)
[2023-03-08] MEDS ORDERED: FLUTICASONE PROPIONATE NA SPR 16 GM BTL NAE PRN (16:48)
[2023-03-08] MEDS ORDERED: BENZONATATE 100 MG CAPSULE PO PRN (16:48)
[2023-03-08] MEDS ORDERED: FIRST - Mouthwash BLM 119 ML MT PRN ×2 (16:53→16:54)
[2023-03-08] MEDS ORDERED: POTASSIUM CHLORIDE / WTR 10 MEQ/100 ML PLCT IV ONE (17:00)
[2023-03-08] MEDS: INSULIN ASPART PER UNIT CHARGE SC SCH ×2 (17:22→20:15)
[2023-03-08] MEDS: CEFEPIME 2,000 MG in SYRINGE 0 ML IV SCH (18:07)
[2023-03-08 19:02] LABS: BUN Creatinine Ratio 13.7 (10-20); Calcium 8.6 mg/dl (8.6-10.3); Creatinine Clr Calc Pharmacy 35.3 ml/min; Est GFR (African American) 40.2 ml/min; Est GFR (Non-African American) 34.6 ml/min; Potassium 3.4 mmol/L (3.5-5.1)
[2023-03-08 20:47] LABS: Hematocrit (blood only) 17.8 % (37.0-47.0); Hemoglobin 6.3 g/dl (12.0-16.0)
[2023-03-08] MEDS ORDERED: ACETAMINOPHEN 325 MG TAB PO ONE (20:50)
[2023-03-08] MEDS ORDERED: NSS + 20MEQ KCL 20 MEQ/1,000 ML BAG IV SCH (21:00)
[2023-03-08] MEDS: FLUTICASONE PROPIONATE NA SPR 16 GM BTL NAE SCH (22:32)
--- OUTSIDE RECORDS SUMMARY | 2023-03-09 03:12 | External Medical Summary | Summary of Care ---
Author Name Unknown Organization [facility] Address [address] [place] [address] Phone [phone] Care Team Providers Care Quality Control Head Name Role Phone Adan Rangel MD Primary Care Provider [phone] Reason for Visit * Reason Onset Date Comments Advice 03/08/2023 Kimberly patient. Encounter Details Date Type Department Care Team (Late st Contact Info) Description 03/08/2023 Telephone Hematology/Oncology [facility] [address] [place] [address] Services, Scheduling [address] [place] [address] Advice (Kimberly patient./) Allergies Active Allergy Reactions Criticality Noted Date Comments Cromolyn Edema face/lips/tongue High 11/21/2012 Facial numbness and swelling documented as of this encounter (statuses as of 03/08/2023) Medications Medication Sig Dispensed Refills Start Date [...] 02/13/2023 Active Ondansetron HCl 8 MG Oral TabletIndications:Sm all cell lung cancer (HCC) Take 1 Tablet by mouth every 8 hours as needed for Nausea. 30 Tablet 0 02/13/2023 Active Prochlorperazine Maleate 10 MG Oral Tablet (Compazine)Indicatio ns:Small cell lung cancer (HCC) Take 1 Tablet by mouth every 6 hours as needed for Nausea. 30 Tablet 0 02/13/2023 Active levoFLOXacin 500 MG Oral TabletIndications:Ac cheryl bronchitis, unspecified organism Take 1 Tablet by mouth in the morning. 7 Tablet 0 02/13/2023 Active Magnesium Oxide -Mg Supplement 400 (240 Mg) MG Oral Tablet (Mag-Ox)Indications: Hypomagnesemia Take 1 Tablet by mouth in the [...] as of this encounter (statuses as of 03/08/2023) Active Problems Problem Noted Date Diagnosed Date Dehydration 02/13/2023 Small cell lung cancer 12/28/2022 Encounter for antineoplastic chemotherapy 2022 Prediabetes 04/02/2018 Overview: Per Prediabetes protocol #1 HTN, goal below 140/90 08/23/2013 Allergic rhinitis 01/28/2008 Tobacco use disorder 01/28/2008 documented as of this encounter (statuses as of 03/08/2023) Resolved Problems Problem Noted Date Diagnosed Date Resolved Date HTN, goal below 130/80 02/16/201208/23 Need for influenza vaccination 01/28/2008 01/03/2017 Acute pharyngitis 01/28/2008 07/31/2008 Overview: Resolved per Benign Acute Dxs Protocol documented as of this encounter (statuses as of 03/08/2023) Immunizations Name Administration Dates Next Due COVID-19 mRNA, LNP-s, No Pre serve, 2-Dose Series (Pfizer) 07/03/2020,06/12/2020 Pneumococcal Polysaccharide PPV23 (Pneumovax) 11/11/2014 Seasonal Influenza, PF, 6 M & above, IM , (FluLaval or Fluzone) 12/28/2022,12/16/2020 Seasonal Influenza, Quadriva lent, No Preserve, IM 12/13/2019,12/17/2018,12/20/2017,12/26 Seasonal Influenza, Quadriva lent,with Preserve, 3 yr & above, IM 12/18/2016 Seasonal Influenza, Split, I IV3, [...] on file documented as of this encounter Miscellaneous Notes * Telephone Encounter - Valeria Dubon RN - 03/08/2023 9:25 AM EST Spoke to Tosha- BP 80/52, HR 112, O2 99%, temp 36.7, patient is very pale, lightheaded x1 week. Reviewed with Dr Harris- patient may be dehydrated, but this could also be due to anemia or infection. Patient may need to go to ER. If patient wants to come here we can do lab work to see what cause of symptoms are and see if she needs to go to ER or if this is ok to treat as outpatient. Tosha states that they will talk to the patient, likely will send to ER. * Telephone Encounter - Michelle Fregoso OSA - 03/08/2023 9:09 AM EST Tosha with [facility] may calling requesting fluids for patient. Please advise patient. documented in this encounter Plan of Treatment Upcoming Encounters Date Type Department Care Team (Late st Contact Info) Description 03/14/2023 9:30 AM EST Laboratory Laboratory [facility] [place] [address] [place] [phone] Veronica, Lab Scenery [address] [place] [id number] 03/14/2023 11:00 AM EST Office Visit Hematology/Oncology [facility] [place] [address] [place] [address] Hernan Harris MD [address] [place] [address] 03/14/2023 11:30 AM EST Hem/Onc Treatment Hematology/Oncology Treatment, [place] [address] [facility] [address] [place], [place] [address] Veronica, Chair 4 Hem Onc Scenery [address] [facility] [place] [address] 03/15/2023 10:00 AM EST Hem/Onc Treatment Hematology/Oncology Treatment, [address], [place] [address] Veronica, Chair 9 Hem Onc Scenery [address] [facility] [place], [place] [address] 03/16/2023 9:45 AM EST Hem/Onc Treatment Hematology/Oncology Treatment, [address], [place] [address] Veronica, Chair 8 Hem Onc Scenery [address] [facility] [place], [place] [address] 07/10/2023 10:20 AM EDT Office Visit Pulmonary Medicine Yuni Stein [address] [place] [phone] Vinicius Irwin MD [address] [place] [id number] Health Maintenance Due Date Last Done Comments [...] filedocumented as of this encounter Care Teams Quality Control Head Relationship Specialty Start Date End Date Adan Rangel MD [address] [place] [address] PCP - General 12/14/05 documented as of this encounter
[2023-03-09] MEDS: CEFEPIME 2,000 MG in SYRINGE 0 ML IV SCH ×2 (05:50→17:37)
[2023-03-09 06:21] LABS: Hematocrit (blood only) 21.3 % (37.0-47.0); Hemoglobin 7.5 g/dl (12.0-16.0); Mean Corpuscular Hemoglobin 29.8 pg (25.0-34.0); Mean Corpuscular Hgb Conc 35.2 g/dL (32.0-36.0); Mean Corpuscular Volume 84.5 fL (80.0-100.0); Mean Platelet Volume 11.3 fL (9.4-12.4); Platelet Count 51 K/uL (130-400); RDW Coefficient of Variation 14.2 % (11.5-14.5); RDW Standard Deviation 43.1 fL (36.4-46.3); Red Blood Count 2.52 M/uL (4.20-5.40); White Blood Count 1.11 K/ul (4.8-10.8)
[2023-03-09 06:51] LABS: Eosinophils # (auto) 0.02 K/uL (0.00-0.50); Eosinophils % (auto) 1.8 %; Immature Granulocytes # (auto) 0.01 K/uL (0.01-0.20); Immature Granulocytes % (auto) 0.9 %; Lymphocytes # (auto) 0.34 K/uL (1.20-3.40); Lymphocytes % (auto) 30.6 %; Monocytes # (auto) 0.22 K/uL (0.11-0.59); Monocytes % (auto) 19.8 %; Neutrophils # (auto) 0.52 K/uL (1.40-6.50); Neutrophils % (auto) 46.9 %
[2023-03-09 07:12] LABS: Albumin Level 3.2 gm/dl (3.4-5.0); Bilirubin,Total 0.8 mg/dl (0.2-1.0); Calcium 8.6 mg/dl (8.6-10.3); Magnesium 1.9 mg/dl (1.7-2.4); Potassium 3.6 mmol/L (3.5-5.1)
[2023-03-09 07:18] LABS: Albumin Globulin Ratio 1.2 (0.9-2); BUN Creatinine Ratio 13.6 (10-20); Creatinine Clr Calc Pharmacy 46.7 ml/min; Est GFR (African American) 54.5 ml/min; Estimated Average Glucose 174 mg/dl; Globulin 2.6 gm/dl (2.5-4.0); Hemoglobin A1C 7.7 % (4.5-5.6); Total Protein 5.8 gm/dl (6.0-8.3)
[2023-03-09] MEDS: INSULIN ASPART PER UNIT CHARGE SC SCH ×4 (08:41→20:18)
--- NOTE | 2023-03-09 08:47 | Hospitalist Progress Note ---
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 chills several days ago Outpatient BP on day of admission 80/52. Was 102/56 upon ER arrival with HR:123. EKG sinus tachycardia, rate 107 WBC: 1.2, Hgb: 6.0 (11 on 02/20/2023), PLT: 50 (246 on 02/20/2023), Neut#0.6 UA: suspect contaminant + SARS Cov 2 PCR Lactate: 2.3--> 1.5 Blood cultures - so far negat. Negative Hemoccult in ER In ER 1 unit PRBC started Patient reassessed after 1L NSS in ER and is hemodynamically stable,HR: 99, BP 121/78, 94% on room air additional unit PRBC given 03/08 - current Hgb 7.5 Initially in ER pt afebrile. repeat T: 37.6 C. Added cefepime on admission and closely monitor for further fevers Neutropenic precautions monitor CBC, BMP in a.m. Discussed with Dr. Harris on admission who recommended PRBC transfusion and last day chemo 02/22/2023 and patient should be in recovery phase (3) COVID-19: Plan: + SARS-CoV-2 PCR Nasal congestion, cough x 1 week CXR: No acute infiltrate Not hypoxic on room air Isolation precautions Incentive spirometer Flonase (4) Hypokalemia: Plan: K: 2.9 replace and monitor (5) Hypomagnesemia: Plan: Magnesium: 1.4 replace and monitor (6) CLINTON (acute kidney injury): Plan: BUN: 22, Cr: 1.59. Creatinine was 1.3 on 02/20/2023, 1.0 on 01/23/2023 Gentle IVF provided current Cr improved to 1.25 (7) Elevated troponin: Plan: HS troponin: 33.7--> 31.5 EKG: Sinus tachycardia, rate 107, no ST elevation Likely demand ischemia from anemia (8) Small cell lung cancer: Plan: On chemo, radiation Last chemo 02/22/2023 Last radiation 03/08/2023 Follows with medical oncology, Dr. Harris Follows with radiation oncology, Dr Bud Goldman Discussed w/ rad/onc Dr. Saeed today (03/09/2023) - after discussing w/ pt - plan to postpone radiation after Holidays. (9) Hypertension: Plan: Hold lisinopril, HCTZ for now monitor BP (10) Diabetes mellitus, type II: Plan: A1c: 6.2 in 11/2021 Hold home metformin, glyburide Random glucose 280 NovoLog sliding scale per protocol (11) Hyperlipidemia: Plan: Previously was on atorvastatin, patient reports is not taking DVT Prophylaxis SCDs Full Code as per discussion with pt Follows with Dr Rangel for routine care Admission and Anticipated Discharge Date Admission Date: March 08, 2023 Subjective Pt seen in follow up of anemia/ pancytopenia, + covid (undergoing chemo and radiation for small cell cancer) Currently laying in bed in NAD, reports feeling better Says she gets chills occasionally at night currently no chest pain, shortness of breath, abd. pain, n/v, says she has some difficulty swallowing from radiation Discussed w/ rad/on Dr. Saeed - pt currently wants to postpone radiation and Dr. Saeed also feels they can resume radiation after holidays Review of Systems Review of Systems: All systems reviewed & are unremarkable except as noted in Subjective Physical Exam Physical Exam: General: no distress, chronically ill appearing, WDWN Head: normocephalic, atraumatic Eyes: conjunctiva pale, anicteric ENT: normal inspection external ears, nose Neck: supple Lungs: clear, no respiratory distress, no wheezing/rhonchi/rales CV: RRR, no murmur, no JVD, no pretibial edema Abd: normal BS, soft, non-tender Ext: moves extremities Neuro: A&O x 3, answers appropriately, no facial asymmetry, moves extremities Skin: pale, warm, dry Results & Data Results & Data Vital Signs (Past 12 Hours) Vital Signs Temp Pulse Pulse Resp BP BP Pulse Ox 03/09/23 07:56 37.5 C 90 16 144/95 H 97 03/09/23 03:11 37.1 C 89 18 136/84 95 03/09/23 00:00 95 H 03/09/23 00:00 84 20 141/89 H 96 03/08/23 23:55 37 C 93 H 20 145/91 H 97 03/08/23 23:53 37 C 93 H 20 145/91 H 97 03/08/23 22:53 36.6 C 85 18 130/86 94 03/08/23 22:38 37 C 93 H 20 145/91 H 97 03/08/23 22:23 36.9 C 89 18 140/80 96 03/08/23 21:59 37.1 C 101 H 18 135/79 96 O2 Del Method O2 Flow Rate 03/09/23 07:56 Room Air 03/09/23 03:11 Room Air 03/09/23 00:00 03/09/23 00:00 03/08/23 23:55 Room Air 03/08/23 23:53 03/08/23 22:53 03/08/23 22:38 0 03/08/23 22:23 0 03/08/23 21:59 Laboratory Results 03/09/23 03/09/23 03/08/23 Range/Units 07:54 06:00 20:15 WBC 1.11 L (4.8-10.8) K/ul RBC 2.52 L (4.20-5.40) M/uL Hgb 7.5 L 6.3 L* (12.0-16.0) g/dl Hct 21.3 L 17.8 L* (37.0-47.0) % MCV 84.5 (80.0-100.0) fL MCH 29.8 (25.0-34.0) pg MCHC 35.2 (32.0-36.0) g/dL RDW Std Deviation 43.1 (36.4-46.3) fL RDW Coeff of Luiz 14.2 (11.5-14.5) % Plt Count 51 L (130-400) K/uL MPV 11.3 (9.4-12.4) fL Immature Gran % (Auto) 0.9 % Neut % (Auto) 46.9 % Lymph % (Auto) 30.6 % Reynolds % (Auto) 19.8 % Eos % (Auto) 1.8 % Baso % (Auto) 0.0 % Neut # (Auto) 0.52 L* (1.40-6.50) K/uL Lymph # (Auto) 0.34 L (1.20-3.40) K/uL Reynolds # (Auto) 0.22 (0.11-0.59) K/uL Eos # (Auto) 0.02 (0.00-0.50) K/uL Baso # (Auto) 0.00 (0.00-0.20) K/uL Immature Gran # (Auto) 0.01 (0.01-0.20) K/uL Platelet Estimate (Normal) Polychromasia Sodium 138 (136-145) mmol/L Potassium 3.6 (3.5-5.1) mmol/L Chloride 105 (98-107) mmol/L Carbon Dioxide 28 (21-32) mmol/L Anion Gap 5 (3-11) BUN 17 (6-23) mg/dl Creatinine 1.25 H D (0.6-1.2) mg/dl Est Cr Clr Drug Dosing 46.7 ml/min Est GFR ( Amer) 54.5 ml/min Est GFR (Non-Af Amer) 47.0 ml/min BUN/Creatinine Ratio 13.6 (10-20) Glucose 140 H (70-99(Fasting)) mg/dl POC Glucose 166 H (70-99) mg/dl Estimat Average Glucose 174 mg/dl Hemoglobin A1c 7.7 H (4.5-5.6) % Lactate (0.4-2.0) mmol/L Calcium 8.6 (8.6-10.3) mg/dl Magnesium 1.9 (1.7-2.4) mg/dl Total Bilirubin 0.8 (0.2-1.0) mg/dl AST 10 L (13-39) U/L ALT 7 (7-52) U/L Alkaline Phosphatase 59 (34-104) U/L Troponin I High Sens (0-14) pg/ml Total Protein 5.8 L (6.0-8.3) gm/dl Albumin 3.2 L (3.4-5.0) gm/dl Globulin 2.6 (2.5-4.0) gm/dl Albumin/Globulin Ratio 1.2 (0.9-2) TSH (0.300-4.500) uIu/ml Urine Color Urine Appearance (Clear) Urine pH (4.5-7.5) Ur Specific [place] (1.000-1.030) Urine Protein (Negative) Urine Glucose (UA) (Negative) Urine Ketones (Negative) Urine Blood (Negative) Urine Nitrite (Negative) Urine Bilirubin (Negative) Urine Urobilinogen (Negative) Ur Leukocyte Esterase (Negative) Urine WBC (Auto) (0-5) /hpf Urine RBC (Auto) (0-4) /hpf U Hyaline Cast (Auto) (0-5) /lpf U Epithel Cells (Auto) (0-5) /lpf Urine Bacteria (Auto) (Negative) SARS-CoV-2 (PCR) (Negative) Influenza Type A (PCR) (Neg) Influenza Type B (PCR) (Neg) RSV (RT-PCR) (Neg) Blood Type Blood Type Recheck Antibody Screen Crossmatch 03/08/23 03/08/23 03/08/23 Range/Units 19:59 18:13 16:48 WBC (4.8-10.8) K/ul RBC (4.20-5.40) M/uL Hgb (12.0-16.0) g/dl Hct (37.0-47.0) % MCV (80.0-100.0) fL MCH (25.0-34.0) pg MCHC (32.0-36.0) g/dL RDW Std Deviation (36.4-46.3) fL RDW Coeff of Luiz (11.5-14.5) % Plt Count (130-400) K/uL MPV (9.4-12.4) fL Immature Gran % (Auto) % Neut % (Auto) % Lymph % (Auto) % Reynolds % (Auto) % Eos % (Auto) % Baso % (Auto) % Neut # (Auto) (1.40-6.50) K/uL Lymph # (Auto) (1.20-3.40) K/uL Reynolds # (Auto) (0.11-0.59) K/uL Eos # (Auto) (0.00-0.50) K/uL Baso # (Auto) (0.00-0.20) K/uL Immature Gran # (Auto) (0.01-0.20) K/uL Platelet Estimate (Normal) Polychromasia Sodium 137 (136-145) mmol/L Potassium 3.4 L (3.5-5.1) mmol/L Chloride 102 (98-107) mmol/L Carbon Dioxide 29 (21-32) mmol/L Anion Gap 6 (3-11) BUN 22 (6-23) mg/dl Creatinine 1.61 H (0.6-1.2) mg/dl Est Cr Clr Drug Dosing 35.3 ml/min Est GFR ( Amer) 40.2 ml/min Est GFR (Non-Af Amer) 34.6 ml/min BUN/Creatinine Ratio 13.7 (10-20) Glucose 153 H (70-99(Fasting)) mg/dl POC Glucose 152 H 173 H (70-99) mg/dl Estimat Average Glucose mg/dl Hemoglobin A1c (4.5-5.6) % Lactate (0.4-2.0) mmol/L Calcium 8.6 (8.6-10.3) mg/dl Magnesium (1.7-2.4) mg/dl Total Bilirubin (0.2-1.0) mg/dl AST (13-39) U/L ALT (7-52) U/L Alkaline Phosphatase (34-104) U/L Troponin I High Sens 30.8 H (0-14) pg/ml Total Protein (6.0-8.3) gm/dl Albumin (3.4-5.0) gm/dl Globulin (2.5-4.0) gm/dl Albumin/Globulin Ratio (0.9-2) TSH (0.300-4.500) uIu/ml Urine Color Urine Appearance (Clear) Urine pH (4.5-7.5) Ur Specific [place] (1.000-1.030) Urine Protein (Negative) Urine Glucose (UA) (Negative) Urine Ketones (Negative) Urine Blood (Negative) Urine Nitrite (Negative) Urine Bilirubin (Negative) Urine Urobilinogen (Negative) Ur Leukocyte Esterase (Negative) Urine WBC (Auto) (0-5) /hpf Urine RBC (Auto) (0-4) /hpf U Hyaline Cast (Auto) (0-5) /lpf U Epithel Cells (Auto) (0-5) /lpf Urine Bacteria (Auto) (Negative) SARS-CoV-2 (PCR) (Negative) Influenza Type A (PCR) (Neg) Influenza Type B (PCR) (Neg) RSV (RT-PCR) (Neg) Blood Type Blood Type Recheck Antibody Screen Crossmatch 03/08/23 03/08/23 03/08/23 Range/Units 13:42 12:40 12:11 WBC (4.8-10.8) K/ul RBC (4.20-5.40) M/uL Hgb (12.0-16.0) g/dl Hct (37.0-47.0) % MCV (80.0-100.0) fL MCH (25.0-34.0) pg MCHC (32.0-36.0) g/dL RDW Std Deviation (36.4-46.3) fL RDW Coeff of Luiz (11.5-14.5) % Plt Count (130-400) K/uL MPV (9.4-12.4) fL Immature Gran % (Auto) % Neut % (Auto) % Lymph % (Auto) % Reynolds % (Auto) % Eos % (Auto) % Baso % (Auto) % Neut # (Auto) (1.40-6.50) K/uL Lymph # (Auto) (1.20-3.40) K/uL Reynolds # (Auto) (0.11-0.59) K/uL Eos # (Auto) (0.00-0.50) K/uL Baso # (Auto) (0.00-0.20) K/uL Immature Gran # (Auto) (0.01-0.20) K/uL Platelet Estimate (Normal) Polychromasia Sodium (136-145) mmol/L Potassium (3.5-5.1) mmol/L Chloride (98-107) mmol/L Carbon Dioxide (21-32) mmol/L Anion Gap (3-11) BUN (6-23) mg/dl Creatinine (0.6-1.2) mg/dl Est Cr Clr Drug Dosing ml/min Est GFR ( Amer) ml/min Est GFR (Non-Af Amer) ml/min BUN/Creatinine Ratio (10-20) Glucose (70-99(Fasting)) mg/dl POC Glucose 193 H (70-99) mg/dl Estimat Average Glucose mg/dl Hemoglobin A1c (4.5-5.6) % Lactate 1.5 (0.4-2.0) mmol/L Calcium (8.6-10.3) mg/dl Magnesium (1.7-2.4) mg/dl Total Bilirubin (0.2-1.0) mg/dl AST (13-39) U/L ALT (7-52) U/L Alkaline Phosphatase (34-104) U/L Troponin I High Sens 31.5 H (0-14) pg/ml Total Protein (6.0-8.3) gm/dl Albumin (3.4-5.0) gm/dl Globulin (2.5-4.0) gm/dl Albumin/Globulin Ratio (0.9-2) TSH (0.300-4.500) uIu/ml Urine Color Urine Appearance (Clear) Urine pH (4.5-7.5) Ur Specific [place] (1.000-1.030) Urine Protein (Negative) Urine Glucose (UA) (Negative) Urine Ketones (Negative) Urine Blood (Negative) Urine Nitrite (Negative) Urine Bilirubin (Negative) Urine Urobilinogen (Negative) Ur Leukocyte Esterase (Negative) Urine WBC (Auto) (0-5) /hpf Urine RBC (Auto) (0-4) /hpf U Hyaline Cast (Auto) (0-5) /lpf U Epithel Cells (Auto) (0-5) /lpf Urine Bacteria (Auto) (Negative) SARS-CoV-2 (PCR) (Negative) Influenza Type A (PCR) (Neg) Influenza Type B (PCR) (Neg) RSV (RT-PCR) (Neg) Blood Type Blood Type Recheck Antibody Screen Crossmatch 03/08/23 03/08/23 03/08/23 Range/Units 12:08 11:16 10:50 WBC (4.8-10.8) K/ul RBC (4.20-5.40) M/uL Hgb (12.0-16.0) g/dl Hct (37.0-47.0) % MCV (80.0-100.0) fL MCH (25.0-34.0) pg MCHC (32.0-36.0) g/dL RDW Std Deviation (36.4-46.3) fL RDW Coeff of Luiz (11.5-14.5) % Plt Count (130-400) K/uL MPV (9.4-12.4) fL Immature Gran % (Auto) % Neut % (Auto) % Lymph % (Auto) % Reynolds % (Auto) % Eos % (Auto) % Baso % (Auto) % Neut # (Auto) (1.40-6.50) K/uL Lymph # (Auto) (1.20-3.40) K/uL Reynolds # (Auto) (0.11-0.59) K/uL Eos # (Auto) (0.00-0.50) K/uL Baso # (Auto) (0.00-0.20) K/uL Immature Gran # (Auto) (0.01-0.20) K/uL Platelet Estimate (Normal) Polychromasia Sodium (136-145) mmol/L Potassium (3.5-5.1) mmol/L Chloride (98-107) mmol/L Carbon Dioxide (21-32) mmol/L Anion Gap (3-11) BUN (6-23) mg/dl Creatinine (0.6-1.2) mg/dl Est Cr Clr Drug Dosing ml/min Est GFR ( Amer) ml/min Est GFR (Non-Af Amer) ml/min BUN/Creatinine Ratio (10-20) Glucose (70-99(Fasting)) mg/dl POC Glucose (70-99) mg/dl Estimat Average Glucose mg/dl Hemoglobin A1c (4.5-5.6) % Lactate 2.3 H* (0.4-2.0) mmol/L Calcium (8.6-10.3) mg/dl Magnesium (1.7-2.4) mg/dl Total Bilirubin (0.2-1.0) mg/dl AST (13-39) U/L ALT (7-52) U/L Alkaline Phosphatase (34-104) U/L Troponin I High Sens (0-14) pg/ml Total Protein (6.0-8.3) gm/dl Albumin (3.4-5.0) gm/dl Globulin (2.5-4.0) gm/dl Albumin/Globulin Ratio (0.9-2) TSH (0.300-4.500) uIu/ml Urine Color Urine Appearance (Clear) Urine pH (4.5-7.5) Ur Specific [place] (1.000-1.030) Urine Protein (Negative) Urine Glucose (UA) (Negative) Urine Ketones (Negative) Urine Blood (Negative) Urine Nitrite (Negative) Urine Bilirubin (Negative) Urine Urobilinogen (Negative) Ur Leukocyte Esterase (Negative) Urine WBC (Auto) (0-5) /hpf Urine RBC (Auto) (0-4) /hpf U Hyaline Cast (Auto) (0-5) /lpf U Epithel Cells (Auto) (0-5) /lpf Urine Bacteria (Auto) (Negative) SARS-CoV-2 (PCR) (Negative) Influenza Type A (PCR) (Neg) Influenza Type B (PCR) (Neg) RSV (RT-PCR) (Neg) Blood Type A Positive Blood Type Recheck A Positive Antibody Screen NEGATIVE Crossmatch See Detail 03/08/23 03/08/23 03/08/23 Range/Units 10:29 10:21 10:18 WBC 1.23 L (4.8-10.8) K/ul RBC 2.03 L (4.20-5.40) M/uL Hgb 6.0 L* (12.0-16.0) g/dl Hct 16.6 L* (37.0-47.0) % MCV 81.8 (80.0-100.0) fL MCH 29.6 (25.0-34.0) pg MCHC 36.1 H (32.0-36.0) g/dL RDW Std Deviation 41.1 (36.4-46.3) fL RDW Coeff of Luiz 13.9 (11.5-14.5) % Plt Count 50 L (130-400) K/uL MPV (9.4-12.4) fL Immature Gran % (Auto) 1.6 % Neut % (Auto) 50.5 % Lymph % (Auto) 34.1 % Reynolds % (Auto) 13.0 % Eos % (Auto) 0.8 % Baso % (Auto) 0.0 % Neut # (Auto) 0.62 L* (1.40-6.50) K/uL Lymph # (Auto) 0.42 L (1.20-3.40) K/uL Reynolds # (Auto) 0.16 (0.11-0.59) K/uL Eos # (Auto) 0.01 (0.00-0.50) K/uL Baso # (Auto) 0.00 (0.00-0.20) K/uL Immature Gran # (Auto) 0.02 (0.01-0.20) K/uL Platelet Estimate Decreased L (Normal) Polychromasia 1+ Sodium 135 L (136-145) mmol/L Potassium 2.9 L (3.5-5.1) mmol/L Chloride 95 L (98-107) mmol/L Carbon Dioxide 31 (21-32) mmol/L Anion Gap 9 (3-11) BUN 22 (6-23) mg/dl Creatinine 1.59 H (0.6-1.2) mg/dl Est Cr Clr Drug Dosing 35.7 ml/min Est GFR ( Amer) 40.8 ml/min Est GFR (Non-Af Amer) 35.2 ml/min BUN/Creatinine Ratio 13.8 (10-20) Glucose 280 H (70-99(Fasting)) mg/dl POC Glucose (70-99) mg/dl Estimat Average Glucose mg/dl Hemoglobin A1c (4.5-5.6) % Lactate (0.4-2.0) mmol/L Calcium 9.2 (8.6-10.3) mg/dl Magnesium 1.4 L (1.7-2.4) mg/dl Total Bilirubin 0.5 (0.2-1.0) mg/dl AST 10 L (13-39) U/L ALT 9 (7-52) U/L Alkaline Phosphatase 74 (34-104) U/L Troponin I High Sens 33.7 H (0-14) pg/ml Total Protein 6.9 (6.0-8.3) gm/dl Albumin 3.8 (3.4-5.0) gm/dl Globulin 3.1 (2.5-4.0) gm/dl Albumin/Globulin Ratio 1.2 (0.9-2) TSH 1.102 (0.300-4.500) uIu/ml Urine Color Yellow Urine Appearance Cloudy A (Clear) Urine pH 5.5 (4.5-7.5) Ur Specific [place] 1.020 (1.000-1.030) Urine Protein Trace H (Negative) Urine Glucose (UA) 3+ H (Negative) Urine Ketones Negative (Negative) Urine Blood Negative (Negative) Urine Nitrite Negative (Negative) Urine Bilirubin Negative (Negative) Urine Urobilinogen Negative (Negative) Ur Leukocyte Esterase Negative (Negative) Urine WBC (Auto) 1-5 (0-5) /hpf Urine RBC (Auto) 0-4 (0-4) /hpf U Hyaline Cast (Auto) 5-10 H (0-5) /lpf U Epithel Cells (Auto) >30 H (0-5) /lpf Urine Bacteria (Auto) 1+ H (Negative) SARS-CoV-2 (PCR) POSITIVE A* (Negative) Influenza Type A (PCR) Negative (Neg) Influenza Type B (PCR) Negative (Neg) RSV (RT-PCR) Negative (Neg) Blood Type Blood Type Recheck Antibody Screen Crossmatch Medications Administered Current Inpatient Medications Acetaminophen (Acetaminophen 325 Mg Tab) 650 mg PO Q4H PRN PRN Reason: Pain or Fever Stop: 04/07/23 16:47 Last Admin: 03/08/23 20:14 Dose: 650 mg Albuterol (Albuterol Hfa 8 Gm Inhaler) 2 puffs INH Q4H PRN PRN Reason: sob/wheezing Stop: 04/07/23 16:47 Benzonatate (Benzonatate 100 Mg Capsule) 100 mg PO TID PRN PRN Reason: Cough Stop: 04/07/23 16:47 Citalopram Hydrobromide (Citalopram 20 Mg Tab) 20 mg PO DAILY [facility] Stop: 04/08/23 08:59 Dextrose (Dextrose 50% 50 Ml Syringe) 25 - 50 ml IV UD PRN; Protocol PRN Reason: Hypoglycemia Protocol Stop: 04/07/23 15:41 Fluticasone Propionate (Fluticasone Propionate Na Spr 16 Gm Btl) 2 sprays MOLLY DAILY [facility] Stop: 04/07/23 20:44 Last Admin: 03/08/23 22:32 Dose: 2 sprays Glucagon (Glucagon For Inj 1 Mg Vial) 1 mg SQ UD PRN; Protocol PRN Reason: Hypoglycemia Protocol Stop: 04/07/23 15:41 Glucose (Glucose 10 Tab/Tube) 4 - 8 tab PO UD PRN; Protocol PRN Reason: Hypoglycemia Treatment Stop: 04/07/23 15:41 Glucose (Glucose 40% Gel 15 Gm Tube) 15 - 30 gm PO UD PRN; Protocol PRN Reason: Hypoglycemia Protocol Stop: 04/07/23 15:41 Cefepime HCl 2,000 mg/ Syringe 20 mls @ 5 mls/min IV Q12H [facility]; Protocol Stop: 03/10/23 17:29 Last Admin: 03/09/23 05:50 Dose: 5 mls/min Potassium Chloride/Sodium Chloride (Normal Saline W/20 Meq Kcl) 20 meq in 1,000 mls @ 80 mls/hr IV .[id number] [facility]; Protocol Stop: 03/09/23 09:29 Last Admin: 03/09/23 00:07 Dose: 80 mls/hr Insulin Aspart (Insulin Aspart Per Unit Charge) 0 units SC ACHS [facility] Stop: 04/07/23 16:29 Last Admin: 03/08/23 20:15 Dose: Not Given Miscellaneous (Carbohydrates For Hypoglycemia ) 15 - 30 gm PO UD PRN PRN Reason: Hypoglycemia Protocol Stop: 04/07/23 15:41 Multi-Ingredient Mouthwash/Gargle (First - Mouthwash Blm 119 Ml) 5 ml MT ACHS PRN PRN Reason: dysphagia Stop: 04/07/23 16:52 Ondansetron HCl (Ondansetron Inj 2 Mg/Ml 2 Ml Vial) 4 mg IV Q6H PRN PRN Reason: Nausea Stop: 04/07/23 16:47 Pantoprazole Sodium (Pantoprazole 40 Mg Tab) 40 mg PO QAM [facility] Stop: 04/08/23 08:59 Polyethylene Glycol (Polyethylene (Miralax) 17 Gm Pack) 17 gm PO DAILY PRN PRN Reason: Constipation Stop: 04/07/23 16:47
[2023-03-09] MEDS ORDERED: PREMARIN VAG CRM 14 APPLN/30 GM TUBE PV SCH (09:00)
[2023-03-09] MEDS: FLUTICASONE PROPIONATE NA SPR 16 GM BTL NAE SCH (09:12)
[2023-03-09] MEDS: PANTOprazole 40 MG TAB PO SCH (09:12)
[2023-03-09] MEDS: CITALOPRAM 20 MG TAB PO SCH (09:12)
[2023-03-10] MEDS: CEFEPIME 2,000 MG in SYRINGE 0 ML IV SCH (05:10)
[2023-03-10 06:37] LABS: BUN Creatinine Ratio 11.7 (10-20); Calcium 8.8 mg/dl (8.6-10.3); Creatinine Clr Calc Pharmacy 49.9 ml/min; Est GFR (African American) 57.3 ml/min; Est GFR (Non-African American) 49.4 ml/min; Magnesium 1.4 mg/dl (1.7-2.4); Phosphorus 3.4 mg/dl (2.5-4.9); Potassium 3.3 mmol/L (3.5-5.1)
[2023-03-10 06:47] LABS: Hematocrit (blood only) 20.9 % (37.0-47.0); Hemoglobin 7.4 g/dl (12.0-16.0); Mean Corpuscular Hgb Conc 35.4 g/dL (32.0-36.0); Mean Corpuscular Volume 84.6 fL (80.0-100.0); Mean Platelet Volume 12.5 fL (9.4-12.4); Platelet Count 53 K/uL (130-400); RDW Coefficient of Variation 14.2 % (11.5-14.5); Red Blood Count 2.47 M/uL (4.20-5.40)
[2023-03-10 06:51] LABS: Polychromasia 1+
[2023-03-10 06:53] LABS: Eosinophils # (auto) 0.01 K/uL (0.00-0.50); Eosinophils % (auto) 0.8 %; Immature Granulocytes # (auto) 0.03 K/uL (0.01-0.20); Immature Granulocytes % (auto) 2.3 %; Lymphocytes % (auto) 23.1 %; Monocytes # (auto) 0.27 K/uL (0.11-0.59); Monocytes % (auto) 20.8 %; Neutrophils # (auto) 0.69 K/uL (1.40-6.50)
[2023-03-10] MEDS: INSULIN ASPART PER UNIT CHARGE SC SCH ×3 (08:49→16:47)
[2023-03-10] MEDS: PANTOprazole 40 MG TAB PO SCH (08:55)
[2023-03-10] MEDS: FLUTICASONE PROPIONATE NA SPR 16 GM BTL NAE SCH (08:55)
[2023-03-10] MEDS: CITALOPRAM 20 MG TAB PO SCH (08:55)
[2023-03-10] MEDS ORDERED: SODIUM CHLORIDE 0.9% 250 ML IV PRN (11:31)
[2023-03-10] MEDS: POTASSIUM CHLORIDE / WTR 10 MEQ/100 ML PLCT IV SCH ×2 (12:02→14:19)
[2023-03-10] MEDS: MAGNESIUM SULFATE / D5W 1 GM/100 ML BAG IV SCH ×2 (12:02→14:19)
--- NOTE | 2023-03-10 15:02 | Discharge Summary ---
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 History obtained from patient and outpatient chart review. States mid January 2023 had some nasal congestion, productive cough. was treated with Levaquin 02/13/23 and finished with improvement of symptoms. Reports for past week with some nasal congestion and mostly dry cough, but "didn't think much of it". Denies SOB, CP. She reports chills 5 days ago that lasted 2 days and resolved. Did not take temperature at that time. States when checked her temperature it has been normal. Past week has been having dizziness with standing that has progressively worsened over the past 2-3 days. Denies syncope. Today at radiation oncology and noted to have SBP in 80s and was referred to ER. Doesn't have known COVID-19 contacts. Last chemo 02/22/23. Last radiation 03/08/23. Reports not eating that much as things haven't tasted good to her for weeks. Was having some nausea after chemo but denies any over past several days. States has been trying to drink fluids. Denies melena, hematochezia, diaphoresis, V/D/C, ROMERO, vision changes, neck pain, CP, SOB, orthopnea, palpitations, hemoptysis, sore throat, otalgia, abdominal pain, extremity weakness, extremity edema, rashes, urinary symptoms. Admission Exam Per Admitting Provider General: no distress, chronic ill appearing, WDWN Head: normocephalic, atraumatic Eyes: conjunctiva pale, anicteric ENT: normal inspection external ears, nose, mucous membranes mildly dry Neck: supple, trachea midline, non-tender Lungs: clear, no respiratory distress, no wheezing/rhonchi/rales CV: RRR, no murmur, no JVD, no pretibial edema Abd: normal BS, soft, non-tender Ext: no cyanosis, no calf tenderness Neuro: A&O x 3, no focal deficits noted, normal affect Skin: pale coloration, warm, dry Principal Diagnosis Symptomatic anemia, pancytopenia + Covid 19 Discharge Exam General: no distress, chronically ill appearing, WDWN Head: normocephalic, atraumatic Eyes: conjunctiva pale, anicteric ENT: normal inspection external ears, nose Neck: supple Lungs: clear, no respiratory distress, no wheezing/rhonchi/rales CV: RRR, no murmur, no JVD, no pretibial edema Abd: normal BS, soft, non-tender Ext: moves extremities Neuro: A&O x 3, answers appropriately, no facial asymmetry, moves extremities Skin: pale, warm, dry Discharge Data Allergies Allergy/AdvReac Type Severity Reaction Status Date / Time cromolyn Allergy Severe facial Verified 03/08/23 12:29 edema latex Allergy Unknown . 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 chills several days ago Outpatient BP on day of admission 80/52. Was 102/56 upon ER arrival with HR:123. EKG sinus tachycardia, rate 107 WBC: 1.2, Hgb: 6.0 (11 on 02/20/2023), PLT: 50 (246 on 02/20/2023), Neut#0.6 UA: suspect contaminant + SARS Cov 2 PCR Lactate: 2.3--> 1.5 Blood cultures - negat. in 48 hrs Negative Hemoccult in ER In ER 1 unit PRBC started Patient reassessed after 1L NSS in ER and is hemodynamically stable,HR: 99, BP 121/78, 94% on room air additional unit PRBC given 03/09 - Hgb 7.5 03/10 - Hgb 7.4 Initially in ER pt afebrile. repeat T: 37.6 C. Added cefepime on admission and closely monitor for further fevers Neutropenic precautions monitor CBC, BMP Discussed with Dr. Harris on admission who recommended PRBC transfusion and last day chemo 02/22/2023 and patient should be in recovery phase 03/10 Pt is feeling much better and is inquiring about discharge. Discussed w/ Dr. Harris - recommend to transfuse 1 more unit of pRBCs, and continue antibiotics on discharge until cultx resulted. (3) COVID-19: + SARS-CoV-2 PCR Nasal congestion, cough x 1 week CXR: No acute infiltrate Not hypoxic on room air Isolation precautions Incentive spirometer Flonase (4) Hypokalemia: K: 2.9 replace and monitor (5) Hypomagnesemia: Magnesium: 1.4 replace and monitor (6) CLINTON (acute kidney injury): BUN: 22, Cr: 1.59. Creatinine was 1.3 on 02/20/2023, 1.0 on 01/23/2023 Gentle IVF provided current Cr improved to 1.20 (7) Elevated troponin: HS troponin: 33.7--> 31.5 EKG: Sinus tachycardia, rate 107, no ST elevation Likely demand ischemia from anemia (8) Small cell lung cancer: On chemo, radiation Last chemo 02/22/2023 Last radiation 03/08/2023 Follows with medical oncology, Dr. Harris Follows with radiation oncology, Dr Bud Goldman Discussed w/ rad/onc Dr. Saeed on (03/09/2023) - after discussing w/ pt - plan to postpone radiation after Holidays. (9) Hypertension: Hold lisinopril, HCTZ for now . can resume lisinopril on discharge. monitor BP (10) Diabetes mellitus, type II: A1c: 6.2 in 11/2021 Hold home metformin, glyburide Random glucose 280 NovoLog sliding scale per protocol (11) Hyperlipidemia: Previously was on atorvastatin, patient reports is not taking Total Time Total Time Spent Total Time Spent (In Minutes): 40 Discharge Plan Discharge Items Patient Disposition: Home - Self-Care Reason For Visit: SYMPTIMATIC ANEMIA Discharge Diagnosis: Symptomatic anemia, pancytopenia + Covid 19 Condition on Discharge: Fair Activity: Per Instructions section Non-emergency contact: Primary Care Provider and Oncologist Call non-emergency contact if: you have any medication questions and your symptoms worsen Follow-up/Referrals: Adan Rangel MD [Primary Care Provider] - (Date & Time 03/16/2023 9:00 AM Provider Adan Rangel MD [facility] ) Diet: Regular Addtl Attending Provider Instructions: Follow up with your primary care doctor and oncologist. The appointment with your primary care doctor was scheduled for you for 03/16/2023. Finish antibiotic treatment as prescribed. For now, do not take hydrochlorothiazide. If your blood pressure is normal/ elevated and you are eating and drinking ok, you can resume hydrochlorothiazide - discuss this with your primary care doctor. Pending Studies at Discharge: Yes Studies:: final blood cultx Stand-Alone Forms: My [facility], Smoking Cessation Medications and DC Order Prescriptions: New amoxicillin-pot clavulanate 875-125 mg tablet 1 tab PO BID 4 Days Qty: 8 0RF Continued fluticasone propionate 50 mcg/actuation spray,suspension 2 spray intranasal DAILY PRN (Reason: Other) Rx Instructions: administer into each nostril Premarin 0.625 mg/gram cream 0.625 mg vaginal DAILY Rx Instructions: off 5 days; repeat cycle albuterol sulfate [Proventil HFA] 90 mcg/actuation HFA aerosol inhaler 2 puff inhalation Q4H PRN (Reason: sob/wheezing) benzonatate 100 mg capsule 100 mg PO TID PRN (Reason: Cough) glyburide-metformin 5-500 mg tablet 1 tab PO DAILY lisinopril 40 mg tablet 40 mg PO DAILY Anacin 400-32 mg tablet 1 tab PO Q6H PRN (Reason: Other) citalopram [Celexa] 20 mg tablet 20 mg PO DAILY ondansetron HCl 8 mg tablet 8 mg PO Q8H PRN (Reason: n/v) prochlorperazine maleate 10 mg tablet 10 mg PO Q6H PRN (Reason: n/v) Ibuprofen (Motrin) 600 MG tablet 600 mg PO Q6HR PRN (Reason: Pain) Qty: 0 Patient Comments: PRN PAIN Magic Mouthwash 300 mL mouthwash 10 ml mucous membrane ACHS PRN (Reason: dysphagia) Qty: 300 5RF omeprazole 20 mg capsule,delayed release(DR/EC) 20 mg PO QAM Held hydrochlorothiazide 25 mg tablet 25 mg PO DAILY Hold Instructions: Resume on 03/12/23. Discharge Orders: Discharge Order (Routine); Ordered 03/10/23 Ordered By: Humble Morrow Admission Data Admit Date/Time: 03/08/23 13:03 Attending Provider: Humble Morrow Admit Provider: Milla Adames Primary Care Provider: Adan Rangel Other Providers: Milla Adames
--- NOTE | 2023-03-10 18:48 | Electrocardiogram Report ---
Test Reason : Blood Pressure : / mmHG Vent. Rate : 107 BPM Atrial Rate : 107 BPM P-R Int : 144 ms QRS Dur : 090 ms QT Int : 352 ms P-R-T Axes : 053 016 054 degrees QTc Int : 469 ms Sinus tachycardia Minimal voltage criteria for LVH, may be normal variant ( R in aVL ) Borderline ECG When compared with ECG of 04-DEC-2012 17:36, No significant change was found Confirmed by Kranthi Min ([id number] on 03/10/2023 6:48:16 PM Referred By: REFERRED SELF Confirmed By:Kranthi Min
--- NOTE | 2023-03-10 22:00 | Electrocardiogram Report ---
Test Reason : Blood Pressure : / mmHG Vent. Rate : 089 BPM Atrial Rate : 089 BPM P-R Int : 172 ms QRS Dur : 090 ms QT Int : 380 ms P-R-T Axes : 037 010 065 degrees QTc Int : 462 ms Normal sinus rhythm Possible Left atrial enlargement Borderline ECG When compared with ECG of 08-MAR-2023 10:40, T wave amplitude has increased in Anterior leads Confirmed by Kranthi Min ([id number]) on 03/10/2023 9:59:54 PM Referred By: REFERRED SELF Confirmed By:Kranthi Min
== END 2023-03-10 17:36 | disposition home or self-care (01) | DRG 177 ==
LOC: ED 09:49 → SUATTDRO 13:03 → 2E 13:03